=== PATIENT | female | born 1940 | race African-American/Black ===

== ENCOUNTER 2017-01-26 13:51 | Emergency (ER) | payer MEDICARE, MEDICAID ==
[~2017-01-26] VITALS: Ht 160 cm; Wt 60.0 kg
[~2017-01-26 13:51] MED LIST: CYCL10TA7; GLIP10TA10; INSLAN; LISI1TAB13; LOVA20TA2; METF500T4; OMEP20CA10; PENT400T2
[2017-01-26] MEDS ORDERED: SODIUM CHLORIDE 0.9% 1,000 ML IV ONE (15:46)
[2017-01-26] MEDS ORDERED: ONDANSETRON HCL 4MG/2ML VIAL IV STA (15:46)
[2017-01-26 16:31] LABS: PARTIAL THROMBOPLASTIN TIME 25.7 sec (23.4-31.0); PROTHROMBIN TIME 10.8 sec (9.4-11.6)
[2017-01-26 16:32] LABS: BASOPHILS % 1.2 % (0.0-2.0); HEMATOCRIT. 32.1 % (36.0-48.0); HEMOGLOBIN. 10.5 g/dL (12.0-16.0); LYMPHOCYTES % 33.7 % (20.0-50.0); MEAN CORPUSCULAR HEMOGLOBIN 27.6 pg (28.0-32.0); MEAN CORPUSCULAR VOLUME 84.2 fL (81.0-99.0); MEAN PLATELET VOLUME 8.4 fl (7.4-10.4); MONOCYTES % 7.5 % (2.0-8.0); NEUTROPHILS % 55.6 % (40.0-76.0); PLATELET 276 x1000/uL (130-400); RED BLOOD CELL COUNT 3.81 mill/uL (4.2-5.4); RED CELL DISTRIBUTION WIDTH 14.4 % (11.6-14.6)
[2017-01-26 16:38] LABS: CARBON DIOXIDE 27 mEq/L (21-32); CHLORIDE 104 mEq/L (98-107); CREATINE KINASE 233 IU/L (26-192)
[2017-01-26 16:39] LABS: TROPONIN I < 0.02 ng/mL (0.00-0.04)
[2017-01-26 18:29] VITALS: BP 170/94
== END 2017-01-26 20:30 | disposition home or self-care (01) ==
LOC: ER 14:28 → CANBEDREQ 21:21
DX: T60.4X1A Toxic effect of rodenticides, accidental (unintentional), initial encounter (principal); R10.9 Unspecified abdominal pain; R11.2 Nausea with vomiting, unspecified; I10 Essential (primary) hypertension; E11.9 Type 2 diabetes mellitus without complications; Z79.4 Long term (current) use of insulin; Z88.2 Allergy status to sulfonamides; Y92.89 Other specified places as the place of occurrence of the external cause
CPT/HCPCS: 36415; 71010; 74176; 80053; 80307; 80329; 82550; 83690; 83880; 84443; 84484; 85025; 85610; 85730; 93005; 96374; 99285; J2405; J7030

== ENCOUNTER 2017-11-09 23:23 | Inpatient (IN) | payer MEDICARE, MEDICAID ==
[~2017-11-09] VITALS: Ht 160 cm; Wt 64.4 kg
[~2017-11-09 23:23] MED LIST changes: -METF500T4; +METF500T6; +PENT400T11; -PENT400T2
[2017-11-10] MEDS ORDERED: MORPHINE SULFATE 4 MG/ML CPJ (NOT FOR IM USE) IV STA (00:09)
[2017-11-10] MEDS ORDERED: ONDANSETRON HCL 4MG/2ML VIAL IV STA (00:09)
[2017-11-10] MEDS ORDERED: SODIUM CHLORIDE 0.9% 1,000 ML IV ONE (00:09)
[2017-11-10] MEDS ORDERED: FAMOTIDINE 20MG/2ML VIAL IV STA (00:09)
[2017-11-10 01:20] LABS: BASOPHILS % 0.4 % (0.0-2.0); EOSINOPHILS % 0.1 % (0.0-5.0); HEMATOCRIT. 36.3 % (36.0-48.0); HEMOGLOBIN. 12.4 g/dL (12.0-16.0); LYMPHOCYTES % 13.3 % (20.0-50.0); MEAN CORPUSCULAR HEMOGLOBIN 28.3 pg (28.0-32.0); MEAN CORPUSCULAR VOLUME 82.9 fL (81.0-99.0); MEAN PLATELET VOLUME 8.3 fl (7.4-10.4); MONOCYTES % 7.3 % (2.0-8.0); NEUTROPHILS % 78.9 % (40.0-76.0); PLATELET 416 x1000/uL (130-400); RED BLOOD CELL COUNT 4.38 mill/uL (4.2-5.4); RED CELL DISTRIBUTION WIDTH 13.8 % (11.6-14.6)
[2017-11-10 01:27] LABS: PROTHROMBIN TIME 10.7 sec (9.4-11.6)
[2017-11-10 01:28] LABS: CHLORIDE 94 mEq/L (98-107)
[2017-11-10 01:35] LABS: ETHANOL BLOOD < 10 mg/dL
[2017-11-10] MEDS ORDERED: IOHEXOL-300 100 ML BOTTLE ONE (04:12)
[2017-11-10] MEDS ORDERED: SODIUM CHLORIDE 0.9% 1,000 ML IV SCH (05:26)
[2017-11-10 08:00] VITALS: BP 136/54
[2017-11-10 08:20] VITALS: BP 136/54
[2017-11-10] MEDS ORDERED: LORAZEPAM 0.5MG TABLET PO PRN (09:15)
[2017-11-10] MEDS ORDERED: DIPHENHYDRAMINE 50MG/ML VIAL IV PRN (09:15)
[2017-11-10] MEDS ORDERED: ONDANSETRON HCL 4MG/2ML VIAL IV PRN (09:15)
[2017-11-10] MEDS ORDERED: CLONIDINE 0.1MG TABLET PO PRN (09:15)
[2017-11-10] MEDS ORDERED: ACETAMINOPHEN 325MG TABLET PO PRN (09:15)
[2017-11-10] MEDS: LISINOPRIL 5MG TABLET PO SCH ×3 (09:30→21:33)
[2017-11-10] MEDS ORDERED: IPRATROPIUM/ALBUTEROL 0.5-3(2.5)MG/3ML NEB INH PRN (09:30)
[2017-11-10] MEDS ORDERED: KCL 20MEQ/100ML PREMIX 100 ML IV NR (10:00)
[2017-11-10 11:39] LABS: CLARITY URINE CLOUDY (CLEAR); COLOR URINE YELLOW (YELLOW); KETONES URINE NEGATIVE (NEGATIVE); LEUKOCYTE ESTERASE URINE 2+ (NEGATIVE); NITRITE URINE NEGATIVE (NEGATIVE); OCCULT BLOOD URINE TRACE (NEGATIVE); PROTEIN URINE 3+ (NEGATIVE); SPECIFIC GRAVITY URINE 1.028 (1.005-1.030); UROBILINOGEN URINE 0.2 E.U./dL (0.2-1.0)
[2017-11-10 12:00] VITALS: BP 126/37
[2017-11-10] MEDS: INSULIN GLARGINE UD 100 UNITS/ML SYR SUBCUT SCH (12:13)
[2017-11-10] MEDS: BLOOD SUGAR DIAGNOSTIC STRIP TEST SCH ×3 (12:14→21:33)
[2017-11-10] MEDS: INSULIN LISPRO 100 UNITS/ML SUBCUT SCH ×3 (12:17→21:00)
[2017-11-10] MEDS: SODIUM CHLORIDE 0.9% 1,000 ML IV SCH ×2 (12:17→18:54)
[2017-11-10 16:00] VITALS: BP 133/49
[2017-11-10] MEDS ORDERED: POTASSIUM CHLORIDE 20MEQ TABLET SR PO NR (16:00)
[2017-11-10] MEDS: PANTOPRAZOLE SODIUM 40 MG/VIAL IV SCH (16:18)
[2017-11-10] MEDS: DEXTROSE 50% WATER 50ML SYRINGE IV PRN (16:18)
[2017-11-10] MEDS ORDERED: LEVOFLOXACIN 500MG PREMIX 100 ML IV NR (16:30)
[2017-11-10 20:00] VITALS: BP 154/74
[2017-11-11] VITALS: BP 141/77
[2017-11-11 04:00] VITALS: BP 146/62
[2017-11-11] MEDS: BLOOD SUGAR DIAGNOSTIC STRIP TEST SCH ×2 (06:12→11:15)
[2017-11-11] MEDS: DEXTROSE 50% WATER 50ML SYRINGE IV PRN (06:12)
[2017-11-11] MEDS: INSULIN LISPRO 100 UNITS/ML SUBCUT SCH ×2 (06:12→12:40)
[2017-11-11 06:49] LABS: BASOPHILS % 1.1 % (0.0-2.0); EOSINOPHILS % 2.5 % (0.0-5.0); HEMATOCRIT. 32.4 % (36.0-48.0); HEMOGLOBIN. 10.9 g/dL (12.0-16.0); LYMPHOCYTES % 30.2 % (20.0-50.0); MEAN CORPUSCULAR VOLUME 83.6 fL (81.0-99.0); MEAN PLATELET VOLUME 8.4 fl (7.4-10.4); MONOCYTES % 8.6 % (2.0-8.0); NEUTROPHILS % 57.6 % (40.0-76.0); PLATELET 330 x1000/uL (130-400); RED BLOOD CELL COUNT 3.88 mill/uL (4.2-5.4)
[2017-11-11 07:53] VITALS: BP 124/76
[2017-11-11] MEDS: PANTOPRAZOLE SODIUM 40 MG/VIAL IV SCH (08:24)
[2017-11-11] MEDS: LISINOPRIL 5MG TABLET PO SCH (08:24)
[2017-11-11] MEDS: INSULIN GLARGINE UD 100 UNITS/ML SYR SUBCUT SCH (10:00)
[2017-11-11] MEDS: SODIUM CHLORIDE 0.9% 1,000 ML IV SCH (11:00)
[2017-11-11 12:00] VITALS: BP 153/58
[2017-11-11] MEDS ORDERED: LEVOFLOXACIN 250MG PREMIX 50 ML IV SCH (14:00)
[2017-11-11 16:00] VITALS: BP 137/74
[2017-11-11 16:15] VITALS: BP 137/74
== END 2017-11-11 17:35 | disposition home or self-care (01) | DRG 872 ==
LOC: ER 23:23 → 8WST 11-10 05:27 → EDBEDREQ 11-10 05:40 → EDBEDREQSVC 11-10 05:40 → ENRESERV 11-10 07:09
PROVIDERS: ADMIT Internal Medicine; ATTEND Internal Medicine
DX: A41.9 Sepsis, unspecified organism (principal); E87.1 Hypo-osmolality and hyponatremia; N39.0 Urinary tract infection, site not specified; E78.00 Pure hypercholesterolemia, unspecified; E87.6 Hypokalemia; I10 Essential (primary) hypertension; E11.9 Type 2 diabetes mellitus without complications; K21.9 Gastro-esophageal reflux disease without esophagitis; Z72.0 Tobacco use; Z82.49 Family history of ischemic heart disease and other diseases of the circulatory system; Z88.2 Allergy status to sulfonamides; Z79.899 Other long term (current) drug therapy; Z79.4 Long term (current) use of insulin
CPT/HCPCS: 36415; 71045; 74177; 80048; 80053; 81003; 82962; 83605; 83690; 83735; 84484; 85025; 85610; 87086; 93005; 93970; 96361; 96374; 96375; 99285; C9113; G0482; J1815; J1956; J2270; J2405; J3480; J3490; J7030; J7040; Q9967

== ENCOUNTER 2018-05-26 16:29 | Emergency (ER) | payer MEDICARE, MEDICAID ==
[~2018-05-26] VITALS: Ht 160 cm; Wt 56.8 kg
[~2018-05-26 16:29] MED LIST changes: -CYCL10TA7; +CYCL10TA7 PO; -GLIP10TA10; +GLIP10TA10 PO; -INSLAN; +INSLAN SUBCUT; -LISI1TAB13; +LISI1TAB13 PO; -LOVA20TA2; +LOVA20TA2 PO; +METF-414 PO; -METF500T6; -OMEP20CA10; +OMEP20CA10 PO; -PENT400T11; +PENT400T11 PO
[2018-05-26 19:07] LABS: CHLORIDE 94 mEq/L (98-107)
[2018-05-26 19:13] LABS: BASOPHILS % 0.8 % (0.0-2.0); EOSINOPHILS % 1.3 % (0.0-5.0); HEMATOCRIT. 23.9 % (36.0-48.0); HEMOGLOBIN. 7.4 g/dL (12.0-16.0); LYMPHOCYTES % 20.7 % (20.0-50.0); MEAN CORPUSCULAR HEMOGLOBIN 21.6 pg (28.0-32.0); MEAN CORPUSCULAR VOLUME 69.6 fL (81.0-99.0); MEAN PLATELET VOLUME 9.3 fl (7.4-10.4); MONOCYTES % 6.7 % (2.0-8.0); NEUTROPHILS % 70.5 % (40.0-76.0); PLATELET 436 x1000/uL (130-400); RED BLOOD CELL COUNT 3.43 mill/uL (4.2-5.4); RED CELL DISTRIBUTION WIDTH 16.1 % (11.6-14.6)
[2018-05-26 20:00] LABS: PLATELET ESTIMATE INCREASED
[2018-05-26] MEDS ORDERED: KETOROLAC 15MG/ML VIAL IV ONE (23:30)
[2018-05-27 01:03] VITALS: BP 143/51
== END 2018-05-27 04:48 | disposition home or self-care (01) ==
LOC: ER 16:29 → CANBEDREQ 05-27 04:52
DX: R05 Cough (principal); R07.9 Chest pain, unspecified; D72.829 Elevated white blood cell count, unspecified; D64.9 Anemia, unspecified; E87.1 Hypo-osmolality and hyponatremia; E11.65 Type 2 diabetes mellitus with hyperglycemia; D47.3 Essential (hemorrhagic) thrombocythemia; R79.89 Other specified abnormal findings of blood chemistry; E11.9 Type 2 diabetes mellitus without complications; K21.9 Gastro-esophageal reflux disease without esophagitis; I10 Essential (primary) hypertension; F17.200 Nicotine dependence, unspecified, uncomplicated; E78.00 Pure hypercholesterolemia, unspecified; Z79.4 Long term (current) use of insulin; Z88.2 Allergy status to sulfonamides
CPT/HCPCS: 36415; 71045; 80053; 83880; 84484; 85025; 93005; 96374; 99284; J1885

== ENCOUNTER 2018-06-15 14:40 | Inpatient (IN) | payer MEDICARE, MEDICAID ==
[~2018-06-15] VITALS: Ht 167.6 cm; Wt 58.5 kg
[2018-06-15 16:34] LABS: BASOPHILS % 1.4 % (0.0-2.0); EOSINOPHILS % 2.6 % (0.0-5.0); LYMPHOCYTES % 27.9 % (20.0-50.0); MEAN CORPUSCULAR HEMOGLOBIN 21.5 pg (28.0-32.0); MEAN CORPUSCULAR VOLUME 70.6 fL (81.0-99.0); MEAN PLATELET VOLUME 8.6 fl (7.4-10.4); MONOCYTES % 8.3 % (2.0-8.0); NEUTROPHILS % 59.8 % (40.0-76.0); PLATELET 379 x1000/uL (130-400); RED BLOOD CELL COUNT 2.87 mill/uL (4.2-5.4); RED CELL DISTRIBUTION WIDTH 16.5 % (11.6-14.6)
[2018-06-15 16:38] LABS: HEMATOCRIT. 20.3 % (36.0-48.0); HEMOGLOBIN. 6.2 g/dL (12.0-16.0)
[2018-06-15 16:39] LABS: CHLORIDE 104 mEq/L (98-107)
[2018-06-15 17:17] LABS: PARTIAL THROMBOPLASTIN TIME 26.8 sec (23.4-31.0); PROTHROMBIN TIME 10.2 sec (9.1-11.1)
[2018-06-15] MEDS ORDERED: HYDRALAZINE 20MG/ML VIAL IV ONE (18:00)
[2018-06-15] MEDS ORDERED: GUAIFENESIN 200MG/10ML SUGAR FREE UDC PO PRN (19:15)
[2018-06-15] MEDS ORDERED: NITROGLYCERIN 0.4MG TABLET SL SL PRN (19:15)
[2018-06-15] MEDS ORDERED: MAGNESIUM/ALUMINUM HYDROXIDE/SIMETHICONE 30ML UDC PO PRN (19:15)
[2018-06-15] MEDS ORDERED: ONDANSETRON HCL 4MG/2ML INJ IV PRN (19:15)
[2018-06-15] MEDS ORDERED: DOCUSATE SODIUM 100MG CAPSULE PO PRN (19:15)
[2018-06-15 19:28] LABS: TOTAL IRON BINDING CAPACITY 498 ug/dL (250-450)
[2018-06-15] MEDS: CLONIDINE 0.1MG TABLET PO PRN (20:56)
[2018-06-15 22:00] VITALS: BP 186/75
[2018-06-15] MEDS: LORAZEPAM 2MG/ML CPJ IV PRN (22:43)
[2018-06-15] MEDS ORDERED: DEXTROSE 50% WATER 50ML SYRINGE IV PRN (23:30)
[2018-06-16] MEDS: BLOOD SUGAR DIAGNOSTIC STRIP TEST SCH ×5 (00:05→20:43)
[2018-06-16] MEDS: LOSARTAN POTASSIUM 50 MG TABLET PO SCH ×3 (00:10→20:43)
[2018-06-16] MEDS: INSULIN LISPRO 100 UNITS/ML SUBCUT SCH ×5 (00:11→20:43)
[2018-06-16 00:33] LABS: CREATINE KINASE MB FRACTION 3.1 ng/mL (0.5-3.6)
[2018-06-16] MEDS: ACETAMINOPHEN 325MG TABLET PO PRN ×4 (01:07→20:43)
[2018-06-16 04:00] VITALS: BP 125/62
[2018-06-16 08:03] VITALS: BP 180/76
[2018-06-16] MEDS: AMLODIPINE 10MG TABLET PO SCH (08:45)
[2018-06-16 09:45] LABS: BASOPHILS % 0.7 % (0.0-2.0); EOSINOPHILS % 0.3 % (0.0-5.0); HEMATOCRIT. 25.1 % (36.0-48.0); HEMOGLOBIN. 7.7 g/dL (12.0-16.0); MEAN CORPUSCULAR HEMOGLOBIN 22.1 pg (28.0-32.0); MEAN CORPUSCULAR VOLUME 71.9 fL (81.0-99.0); MEAN PLATELET VOLUME 8.4 fl (7.4-10.4); MONOCYTES % 5.1 % (2.0-8.0); NEUTROPHILS % 77.9 % (40.0-76.0); PLATELET 319 x1000/uL (130-400); RED BLOOD CELL COUNT 3.49 mill/uL (4.2-5.4); RED CELL DISTRIBUTION WIDTH 18.7 % (11.6-14.6)
[2018-06-16 10:03] LABS: CHLORIDE 100 mEq/L (98-107)
[2018-06-16 10:22] LABS: CREATINE KINASE 115 IU/L (26-192); LDL CHOLESTEROL 53 mg/dL (5-100)
[2018-06-16 10:24] LABS: HDL CHOLESTEROL 63 mg/dL (40-59)
[2018-06-16] MEDS ORDERED: POTASSIUM CHLORIDE 20MEQ TABLET SR PO NR (10:45)
[2018-06-16] MEDS: PANTOPRAZOLE 40MG DR TABLET PO SCH (11:04)
[2018-06-16 12:00] VITALS: BP 163/67
[2018-06-16 16:00] VITALS: BP 156/66
[2018-06-16 16:07] LABS: TOTAL IRON BINDING CAPACITY 481 ug/dL (250-450)
[2018-06-16 19:56] VITALS: BP 139/43
[2018-06-16] MEDS: LORAZEPAM 2MG/ML CPJ IV PRN (22:23)
[2018-06-16 23:55] VITALS: BP 159/67
[2018-06-17] VITALS (9 sets, daily range): BP systolic 120–152; BP diastolic 40–68
[2018-06-17] MEDS: PANTOPRAZOLE 40MG DR TABLET PO SCH (06:03)
[2018-06-17] MEDS: BLOOD SUGAR DIAGNOSTIC STRIP TEST SCH ×4 (06:15→20:17)
[2018-06-17] MEDS: LOSARTAN POTASSIUM 50 MG TABLET PO SCH ×2 (08:30→20:27)
[2018-06-17] MEDS: AMLODIPINE 10MG TABLET PO SCH (08:30)
[2018-06-17] MEDS: INSULIN LISPRO 100 UNITS/ML SUBCUT SCH ×4 (08:37→20:28)
[2018-06-17] MEDS: ACETAMINOPHEN 325MG TABLET PO PRN (09:32)
[2018-06-17] MEDS ORDERED: SORBITOL 70% SOLN 30ML PO NR ×2 (16:00→20:00)
[2018-06-17] MEDS ORDERED: DIPHENHYDRAMINE 25MG CAPSULE PO PRN (19:00)
[2018-06-17 19:10] LABS: BASOPHILS % 1.2 % (0.0-2.0); EOSINOPHILS % 5.4 % (0.0-5.0); HEMATOCRIT. 23.4 % (36.0-48.0); HEMOGLOBIN. 7.2 g/dL (12.0-16.0); LYMPHOCYTES % 22.5 % (20.0-50.0); MEAN CORPUSCULAR HEMOGLOBIN 22.2 pg (28.0-32.0); MEAN CORPUSCULAR VOLUME 71.8 fL (81.0-99.0); MEAN PLATELET VOLUME 8.5 fl (7.4-10.4); MONOCYTES % 7.8 % (2.0-8.0); NEUTROPHILS % 63.1 % (40.0-76.0); PLATELET 349 x1000/uL (130-400); RED BLOOD CELL COUNT 3.26 mill/uL (4.2-5.4); RED CELL DISTRIBUTION WIDTH 18.6 % (11.6-14.6)
[2018-06-17 19:18] LABS: CHLORIDE 99 mEq/L (98-107)
[2018-06-17] MEDS: PANTOPRAZOLE SODIUM 40 MG/VIAL IV SCH (20:27)
[2018-06-17] MEDS: ZOLPIDEM TARTRATE 5MG TABLET PO PRN (21:53)
[2018-06-18] VITALS (12 sets, daily range): BP systolic 142–175; BP diastolic 50–77
[2018-06-18 03:06] LABS: HEMATOCRIT 26.5 % (36.0-48.0); HEMOGLOBIN 8.1 g/dL (12.0-16.0)
[2018-06-18] MEDS ORDERED: NA PHOS,M-B/NA PHOS,DI-BA ENEMA 118ML PR NR (07:00)
[2018-06-18] MEDS: BLOOD SUGAR DIAGNOSTIC STRIP TEST SCH ×4 (07:36→21:50)
[2018-06-18 09:16] LABS: EOSINOPHILS % 4.6 % (0.0-5.0); HEMATOCRIT. 33.1 % (36.0-48.0); HEMOGLOBIN. 10.4 g/dL (12.0-16.0); LYMPHOCYTES % 19.2 % (20.0-50.0); MEAN CORPUSCULAR HEMOGLOBIN 24.4 pg (28.0-32.0); MEAN CORPUSCULAR VOLUME 77.3 fL (81.0-99.0); MEAN PLATELET VOLUME 8.5 fl (7.4-10.4); MONOCYTES % 8.2 % (2.0-8.0); PLATELET 315 x1000/uL (130-400); RED BLOOD CELL COUNT 4.28 mill/uL (4.2-5.4); RED CELL DISTRIBUTION WIDTH 22.4 % (11.6-14.6)
[2018-06-18] MEDS ORDERED: FENTANYL CITRATE/PF 50MCG/ML 2ML VIAL ONE (09:20)
[2018-06-18 09:21] LABS: PARTIAL THROMBOPLASTIN TIME 28.4 sec (23.4-31.0); PROTHROMBIN TIME 10.4 sec (9.1-11.1)
[2018-06-18] MEDS ORDERED: MIDAZOLAM HCL 5 MG/5 ML VIAL ONE (09:21)
[2018-06-18] MEDS ORDERED: SIMETHICONE 40 MG/0.6 ML 30ML ONE (09:21)
[2018-06-18 09:25] LABS: CHLORIDE 104 mEq/L (98-107)
[2018-06-18] MEDS ORDERED: FENTANYL CITRATE/PF 50MCG/ML 2ML VIAL IV PRN (09:30)
[2018-06-18] MEDS ORDERED: MIDAZOLAM HCL 5 MG/5 ML VIAL IV PRN (09:31)
[2018-06-18] MEDS: AMLODIPINE 10MG TABLET PO SCH (13:29)
[2018-06-18] MEDS: LOSARTAN POTASSIUM 50 MG TABLET PO SCH ×2 (13:29→21:49)
[2018-06-18] MEDS: PANTOPRAZOLE SODIUM 40 MG/VIAL IV SCH ×2 (13:30→21:49)
[2018-06-18] MEDS: INSULIN LISPRO 100 UNITS/ML SUBCUT SCH ×3 (13:31→21:50)
[2018-06-18 13:48] LABS: PLATELET ESTIMATE NORMAL
[2018-06-18] MEDS ORDERED: SODIUM CHLORIDE 0.9% 10ML VIAL ONE (15:39)
[2018-06-18] MEDS: ACETAMINOPHEN 325MG TABLET PO PRN (16:05)
[2018-06-18] MEDS ORDERED: SORBITOL 70% SOLN 30ML PO NR (21:00)
[2018-06-19] VITALS: BP 166/68
[2018-06-19] MEDS ORDERED: SORBITOL 70% SOLN 30ML PO NR (06:00)
[2018-06-19] MEDS: BLOOD SUGAR DIAGNOSTIC STRIP TEST SCH ×4 (06:57→21:00)
[2018-06-19 07:06] LABS: BASOPHILS % 1.3 % (0.0-2.0); EOSINOPHILS % 6.3 % (0.0-5.0); HEMATOCRIT. 31.2 % (36.0-48.0); LYMPHOCYTES % 24.7 % (20.0-50.0); MEAN CORPUSCULAR HEMOGLOBIN 24.3 pg (28.0-32.0); MEAN CORPUSCULAR VOLUME 76.1 fL (81.0-99.0); MEAN PLATELET VOLUME 8.2 fl (7.4-10.4); MONOCYTES % 10.1 % (2.0-8.0); NEUTROPHILS % 57.6 % (40.0-76.0); PLATELET 311 x1000/uL (130-400); RED CELL DISTRIBUTION WIDTH 22.4 % (11.6-14.6)
[2018-06-19 07:29] LABS: CHLORIDE 107 mEq/L (98-107)
[2018-06-19 08:00] VITALS: BP 162/76
[2018-06-19] MEDS ORDERED: NA PHOS,M-B/NA PHOS,DI-BA ENEMA 118ML PR NR (08:00)
[2018-06-19] MEDS: INSULIN LISPRO 100 UNITS/ML SUBCUT SCH ×4 (08:07→21:00)
[2018-06-19] MEDS: AMLODIPINE 10MG TABLET PO SCH (09:34)
[2018-06-19] MEDS: LOSARTAN POTASSIUM 50 MG TABLET PO SCH ×2 (09:34→21:00)
[2018-06-19] MEDS: FAMOTIDINE 20MG TABLET PO SCH (09:35)
[2018-06-19 12:00] VITALS: BP 151/57
[2018-06-19] MEDS: ACETAMINOPHEN 325MG TABLET PO PRN (15:38)
[2018-06-19] MEDS: CLONIDINE 0.1MG TABLET PO PRN (15:38)
[2018-06-19] MEDS ORDERED: SODIUM CHLORIDE 0.9% 10ML VIAL ONE (15:40)
[2018-06-19 16:00] VITALS: BP 147/68
[2018-06-19] MEDS ORDERED: FENTANYL CITRATE/PF 50MCG/ML 2ML VIAL ONE (17:15)
[2018-06-19] MEDS ORDERED: MIDAZOLAM HCL 5 MG/5 ML VIAL ONE (17:15)
[2018-06-19] MEDS ORDERED: MIDAZOLAM HCL 5 MG/5 ML VIAL IV PRN (17:19)
[2018-06-19] MEDS ORDERED: FENTANYL CITRATE/PF 50MCG/ML 2ML VIAL IV PRN (17:20)
[2018-06-19 20:00] VITALS: BP 103/61
[2018-06-19] MEDS ORDERED: FUROSEMIDE 40MG/4ML VIAL IVP NR (20:00)
[2018-06-19] MEDS: ZOLPIDEM TARTRATE 5MG TABLET PO PRN (23:34)
[2018-06-20] VITALS: BP 115/54
[2018-06-20] MEDS: ACETAMINOPHEN 325MG TABLET PO PRN ×2 (02:56→08:51)
[2018-06-20 04:00] VITALS: BP 136/59
[2018-06-20] MEDS: BLOOD SUGAR DIAGNOSTIC STRIP TEST SCH ×2 (06:11→12:41)
[2018-06-20 08:00] VITALS: BP 166/74
[2018-06-20] MEDS: LOSARTAN POTASSIUM 50 MG TABLET PO SCH (08:51)
[2018-06-20] MEDS: AMLODIPINE 10MG TABLET PO SCH (08:51)
[2018-06-20] MEDS: FAMOTIDINE 20MG TABLET PO SCH (08:52)
[2018-06-20] MEDS: INSULIN LISPRO 100 UNITS/ML SUBCUT SCH (09:09)
[2018-06-20 10:47] VITALS: BP 155/78
[2018-06-20 12:00] VITALS: BP 165/78
== END 2018-06-20 12:38 | disposition home health service (06) | DRG 378 ==
LOC: ER 14:40 → 7WST 17:42 → SUPCPDRO 19:02 → ENRESERV 20:40
PROVIDERS: ADMIT Hospitalist; ATTEND Hospitalist
PROC: 30233N1 Transfusion of Nonautologous Red Blood Cells into Peripheral Vein, Percutaneous Approach (ICD-10-PCS; 2018-06-15)
PROC: 0DJ08ZZ Inspection of Upper Intestinal Tract, Via Natural or Artificial Opening Endoscopic (ICD-10-PCS; principal; 2018-06-18)
PROC: 0DJD8ZZ Inspection of Lower Intestinal Tract, Via Natural or Artificial Opening Endoscopic (ICD-10-PCS; 2018-06-18)
PROC: 0DJD8ZZ Inspection of Lower Intestinal Tract, Via Natural or Artificial Opening Endoscopic (ICD-10-PCS; 2018-06-19)
DX: K29.61 Other gastritis with bleeding (principal); E44.0 Moderate protein-calorie malnutrition; E11.43 Type 2 diabetes mellitus with diabetic autonomic (poly)neuropathy; D50.9 Iron deficiency anemia, unspecified; K21.9 Gastro-esophageal reflux disease without esophagitis; I10 Essential (primary) hypertension; E78.00 Pure hypercholesterolemia, unspecified; E78.5 Hyperlipidemia, unspecified; K31.84 Gastroparesis; K44.9 Diaphragmatic hernia without obstruction or gangrene; Z88.2 Allergy status to sulfonamides; Z79.4 Long term (current) use of insulin; Z79.84 Long term (current) use of oral hypoglycemic drugs; Z79.899 Other long term (current) drug therapy; Z68.20 Body mass index [BMI] 20.0-20.9, adult
CPT/HCPCS: 36415; 36430; 71045; 80061; 82270; 82550; 82553; 82962; 83540; 83550; 83880; 84484; 85014; 85018; 86850; 86900; 86920; 93005; 93970; 96374; 99285; C1893; C9113; J0360; J1815; J1940; J2060; J2250; J3010; J7050; P9016; Q0163

== ENCOUNTER 2018-10-06 08:45 | Inpatient (IN) | payer MEDICARE, OTHER ==
[~2018-10-06] VITALS: Ht 160 cm; Wt 77.1 kg
[~2018-10-06 08:45] MED LIST changes: -OMEP20CA10 PO; +OMEP20CA5 PO; -PENT400T11 PO; +PENT400T16 PO
[2018-10-06] MEDS ORDERED: ONDANSETRON HCL 4MG/2ML INJ IV STA (09:14)
[2018-10-06] MEDS ORDERED: SODIUM CHLORIDE 0.9% 1,000 ML IV ONE (09:14)
[2018-10-06 09:42] LABS: BASOPHILS % 0.8 % (0.0-2.0); EOSINOPHILS % 0.8 % (0.0-5.0); HEMATOCRIT. 35.8 % (36.0-48.0); LYMPHOCYTES % 14.9 % (20.0-50.0); MEAN CORPUSCULAR HEMOGLOBIN 29.3 pg (28.0-32.0); MEAN CORPUSCULAR VOLUME 87.1 fL (81.0-99.0); MEAN PLATELET VOLUME 7.7 fl (7.4-10.4); MONOCYTES % 6.4 % (2.0-8.0); NEUTROPHILS % 77.1 % (40.0-76.0); PLATELET 328 x1000/uL (130-400); RED BLOOD CELL COUNT 4.11 mill/uL (4.2-5.4); RED CELL DISTRIBUTION WIDTH 13.9 % (11.6-14.6)
[2018-10-06 09:43] LABS: CHLORIDE 98 mEq/L (98-107)
[2018-10-06 09:46] LABS: INR 0.9; PROTHROMBIN TIME 9.7 sec (9.6-11.0)
[2018-10-06 11:28] LABS: CLARITY URINE CLOUDY (CLEAR); COLOR URINE YELLOW (YELLOW); KETONES URINE NEGATIVE (NEGATIVE); LEUKOCYTE ESTERASE URINE 2+ (NEGATIVE); NITRITE URINE NEGATIVE (NEGATIVE); OCCULT BLOOD URINE 1+ (NEGATIVE); PROTEIN URINE 2+ (NEGATIVE); SPECIFIC GRAVITY URINE 1.012 (1.005-1.030); UROBILINOGEN URINE 0.2 E.U./dL (0.2-1.0)
[2018-10-06] MEDS ORDERED: CEFTRIAXONE 1 G PREMIX 50 ML IV NR (12:30)
[2018-10-06] MEDS ORDERED: MAGNESIUM/ALUMINUM HYDROXIDE/SIMETHICONE 30ML UDC PO PRN (13:00)
[2018-10-06] MEDS ORDERED: ENOXAPARIN 40MG/0.4ML SYR SUBCUT SCH (13:00)
[2018-10-06] MEDS ORDERED: NA PHOS,M-B/NA PHOS,DI-BA ENEMA 118ML PR PRN (13:00)
[2018-10-06] MEDS ORDERED: DIPHENHYDRAMINE 50MG/ML VIAL IV PRN (13:00)
[2018-10-06] MEDS: LORAZEPAM 2MG/ML CPJ IV PRN (14:17)
[2018-10-06] MEDS: ONDANSETRON HCL 4MG/2ML INJ IV PRN (14:18)
[2018-10-06] MEDS: CLONIDINE 0.1MG TABLET PO PRN ×2 (14:19→22:58)
[2018-10-06] MEDS: LISINOPRIL 20MG TABLET PO SCH (16:41)
[2018-10-06] MEDS ORDERED: LISINOPRIL 20MG TABLET PO NR (16:45)
[2018-10-06] MEDS ORDERED: HYDRALAZINE HCL 50MG TABLET PO NR (17:45)
[2018-10-06] MEDS ORDERED: DEXTROSE 50% WATER 50ML SYRINGE IV PRN ×2 (19:15)
[2018-10-06 20:00] VITALS: BP 183/76
[2018-10-06] MEDS ORDERED: LEVOFLOXACIN 500MG PREMIX 100 ML IV SCH (20:00)
[2018-10-06] MEDS: ENOXAPARIN 30MG/0.3ML SYR SUBCUT SCH (22:58)
[2018-10-06] MEDS: HYDROCHLOROTHIAZIDE 12.5MG CAPSULE PO SCH (22:58)
[2018-10-06] MEDS: BLOOD SUGAR DIAGNOSTIC STRIP TEST SCH (23:03)
[2018-10-06] MEDS: SODIUM CHLORIDE 0.45% 1,000 ML IV SCH (23:03)
[2018-10-06] MEDS: INSULIN LISPRO 100 UNITS/ML SUBCUT SCH (23:26)
[2018-10-07] VITALS: BP 176/71
[2018-10-07] MEDS ORDERED: IPRATROPIUM/ALBUTEROL 0.5-3(2.5)MG/3ML NEB HHN PRN (00:30)
[2018-10-07] MEDS ORDERED: GUAIFENESIN/CODEINE 100-10MG/5ML UDC PO PRN (00:30)
[2018-10-07 04:00] VITALS: BP 124/40
[2018-10-07 06:07] LABS: BASOPHILS % 0.5 % (0.0-2.0); EOSINOPHILS % 1.6 % (0.0-5.0); HEMATOCRIT. 28.3 % (36.0-48.0); HEMOGLOBIN. 9.6 g/dL (12.0-16.0); LYMPHOCYTES % 22.8 % (20.0-50.0); MEAN CORPUSCULAR HEMOGLOBIN 29.4 pg (28.0-32.0); MEAN CORPUSCULAR VOLUME 86.2 fL (81.0-99.0); MEAN PLATELET VOLUME 7.7 fl (7.4-10.4); MONOCYTES % 9.3 % (2.0-8.0); NEUTROPHILS % 65.8 % (40.0-76.0); PLATELET 297 x1000/uL (130-400); RED BLOOD CELL COUNT 3.28 mill/uL (4.2-5.4); RED CELL DISTRIBUTION WIDTH 13.8 % (11.6-14.6)
[2018-10-07] MEDS: SODIUM CHLORIDE 0.45% 1,000 ML IV SCH ×2 (06:57→20:20)
[2018-10-07] MEDS: BLOOD SUGAR DIAGNOSTIC STRIP TEST SCH ×4 (06:58→20:07)
[2018-10-07 07:01] LABS: CHLORIDE 99 mEq/L (98-107)
[2018-10-07 08:00] VITALS: BP 128/83
[2018-10-07] MEDS ORDERED: LEVOFLOXACIN 500MG PREMIX 100 ML IV SCH (08:00)
[2018-10-07] MEDS: INSULIN LISPRO 100 UNITS/ML SUBCUT SCH ×4 (08:28→20:21)
[2018-10-07] MEDS: HYDROCHLOROTHIAZIDE 12.5MG CAPSULE PO SCH (09:30)
[2018-10-07] MEDS: ONDANSETRON HCL 4MG/2ML INJ IV PRN (11:57)
[2018-10-07 12:00] VITALS: BP 149/80
[2018-10-07 16:00] VITALS: BP 172/76
[2018-10-07] MEDS: CLONIDINE 0.1MG TABLET PO PRN (16:46)
[2018-10-07] MEDS: ACETAMINOPHEN 325MG TABLET PO PRN (16:49)
[2018-10-07] MEDS: DOCUSATE SODIUM 100MG CAPSULE PO PRN (18:17)
[2018-10-07 20:00] VITALS: BP 165/71
[2018-10-07] MEDS: LEVOFLOXACIN 250MG PREMIX 50 ML IV SCH (20:19)
[2018-10-07] MEDS: ENOXAPARIN 30MG/0.3ML SYR SUBCUT SCH (20:20)
[2018-10-07 22:21] LABS: CREATINE KINASE 244 IU/L (26-192)
[2018-10-07] MEDS: LORAZEPAM 2MG/ML CPJ IV PRN (23:53)
[2018-10-08] VITALS: BP 145/69
[2018-10-08 04:00] VITALS: BP 141/66
[2018-10-08] MEDS: BLOOD SUGAR DIAGNOSTIC STRIP TEST SCH ×4 (06:08→21:00)
[2018-10-08 06:40] LABS: BASOPHILS % 0.8 % (0.0-2.0); EOSINOPHILS % 2.5 % (0.0-5.0); HEMATOCRIT. 27.7 % (36.0-48.0); HEMOGLOBIN. 9.4 g/dL (12.0-16.0); LYMPHOCYTES % 30.7 % (20.0-50.0); MEAN CORPUSCULAR HEMOGLOBIN 29.1 pg (28.0-32.0); MEAN CORPUSCULAR VOLUME 85.7 fL (81.0-99.0); MEAN PLATELET VOLUME 7.6 fl (7.4-10.4); MONOCYTES % 6.9 % (2.0-8.0); NEUTROPHILS % 59.1 % (40.0-76.0); PLATELET 266 x1000/uL (130-400); RED BLOOD CELL COUNT 3.24 mill/uL (4.2-5.4); RED CELL DISTRIBUTION WIDTH 13.4 % (11.6-14.6)
[2018-10-08 07:03] LABS: CHLORIDE 97 mEq/L (98-107)
[2018-10-08 08:00] VITALS: BP 189/80
[2018-10-08] MEDS: CLONIDINE 0.1MG TABLET PO PRN ×2 (08:27→20:36)
[2018-10-08] MEDS: ONDANSETRON HCL 4MG/2ML INJ IV PRN (08:28)
[2018-10-08] MEDS: ACETAMINOPHEN 325MG TABLET PO PRN (08:28)
[2018-10-08] MEDS: INSULIN LISPRO 100 UNITS/ML SUBCUT SCH ×4 (08:34→20:53)
[2018-10-08] MEDS: HYDROCHLOROTHIAZIDE 12.5MG CAPSULE PO SCH (09:11)
[2018-10-08] MEDS: LISINOPRIL 20MG TABLET PO SCH (09:12)
[2018-10-08] MEDS: POTASSIUM CHLORIDE 20MEQ TABLET SR PO SCH (11:49)
[2018-10-08 12:00] VITALS: BP 144/60
[2018-10-08] MEDS ORDERED: TRAMADOL 50MG TABLET PO PRN (12:30)
[2018-10-08] MEDS: SODIUM CHLORIDE 0.45% 1,000 ML IV SCH (15:17)
[2018-10-08 16:00] VITALS: BP 148/58
[2018-10-08] MEDS: DOCUSATE SODIUM 100MG CAPSULE PO PRN (17:34)
[2018-10-08 20:00] VITALS: BP 187/71
[2018-10-08] MEDS: ENOXAPARIN 30MG/0.3ML SYR SUBCUT SCH (20:35)
[2018-10-08] MEDS: LEVOFLOXACIN 250MG PREMIX 50 ML IV SCH (20:36)
[2018-10-09] VITALS: BP 154/64
[2018-10-09 04:00] VITALS: BP 178/69
[2018-10-09] MEDS: CLONIDINE 0.1MG TABLET PO PRN (04:51)
[2018-10-09] MEDS: INSULIN LISPRO 100 UNITS/ML SUBCUT SCH (05:45)
[2018-10-09] MEDS: BLOOD SUGAR DIAGNOSTIC STRIP TEST SCH (05:45)
[2018-10-09 06:15] LABS: BASOPHILS % 1.3 % (0.0-2.0); EOSINOPHILS % 3.1 % (0.0-5.0); HEMATOCRIT. 29.2 % (36.0-48.0); LYMPHOCYTES % 36.2 % (20.0-50.0); MEAN CORPUSCULAR HEMOGLOBIN 29.4 pg (28.0-32.0); MEAN CORPUSCULAR VOLUME 85.7 fL (81.0-99.0); MEAN PLATELET VOLUME 7.9 fl (7.4-10.4); MONOCYTES % 7.5 % (2.0-8.0); NEUTROPHILS % 51.9 % (40.0-76.0); PLATELET 293 x1000/uL (130-400); RED CELL DISTRIBUTION WIDTH 13.2 % (11.6-14.6)
[2018-10-09 07:21] LABS: CHLORIDE 99 mEq/L (98-107)
[2018-10-09 08:00] VITALS: BP 126/59
[2018-10-09] MEDS: HYDROCHLOROTHIAZIDE 12.5MG CAPSULE PO SCH (09:51)
[2018-10-09] MEDS: SODIUM CHLORIDE 0.45% 1,000 ML IV SCH (09:51)
[2018-10-09] MEDS: POTASSIUM CHLORIDE 20MEQ TABLET SR PO SCH (09:51)
[2018-10-09] MEDS: LISINOPRIL 20MG TABLET PO SCH (09:52)
[2018-10-09 12:00] VITALS: BP 130/64
[2018-10-09 13:07] VITALS: BP 125/59
== END 2018-10-09 13:55 | disposition home health service (06) | DRG 918 ==
LOC: ER 08:45 → 7WST 12:30 → EDBEDREQTM 12:35 → EDBEDREQ 12:35 → ENRESERV 15:32
PROVIDERS: ADMIT Hospitalist; ATTEND Hospitalist
DX: T43.291A Poisoning by other antidepressants, accidental (unintentional), initial encounter (principal); N39.0 Urinary tract infection, site not specified; E11.9 Type 2 diabetes mellitus without complications; B95.4 Other streptococcus as the cause of diseases classified elsewhere; I10 Essential (primary) hypertension; E78.5 Hyperlipidemia, unspecified; K21.9 Gastro-esophageal reflux disease without esophagitis; Y92.89 Other specified places as the place of occurrence of the external cause; Z88.2 Allergy status to sulfonamides; Z88.8 Allergy status to other drugs, medicaments and biological substances; Z79.4 Long term (current) use of insulin; Z79.899 Other long term (current) drug therapy; Z79.84 Long term (current) use of oral hypoglycemic drugs
CPT/HCPCS: 36415; 71045; 80307; 80329; 82550; 82962; 83605; 83735; 83880; 84484; 87077; 93005; 93970; 94640; 96374; 96375; 97162; 99285; A6261; J0696; J1200; J1650; J1815; J1956; J2060; J2405; J7030; J7620; A4315

== ENCOUNTER 2019-05-06 22:41 | Inpatient (IN) | payer MEDICARE, MEDICAID ==
[~2019-05-06] VITALS: Ht 162.6 cm; Wt 63.8 kg
[2019-05-06] MEDS ORDERED: CLONIDINE 0.2MG TABLET PO ONE (23:45)
[2019-05-06] MEDS ORDERED: SODIUM CHLORIDE 0.9% 1,000 ML IV ONE (23:45)
[2019-05-07 00:30] LABS: HEMATOCRIT. 42.5 % (36.0-48.0); HEMOGLOBIN. 13.7 g/dL (12.0-16.0); MEAN CORPUSCULAR HEMOGLOBIN 27.3 pg (28.0-32.0); MEAN CORPUSCULAR VOLUME 84.6 fL (81.0-99.0); MEAN PLATELET VOLUME 8.5 fl (7.4-10.4); PLATELET 374 x1000/uL (130-400); RED BLOOD CELL COUNT 5.03 mill/uL (4.2-5.4); RED CELL DISTRIBUTION WIDTH 19.5 % (11.6-14.6)
[2019-05-07] MEDS ORDERED: INSULIN REGULAR (HUMULIN R) 300UNITS/3ML IV ONE (03:00)
[2019-05-07 05:07] LABS: PLATELET ESTIMATE NORMAL
[2019-05-07] MEDS ORDERED: SODIUM CHLORIDE 0.9% 1,000 ML IV ONE (09:00)
[2019-05-07] MEDS ORDERED: ACETAMINOPHEN 325MG TABLET PO PRN (10:30)
[2019-05-07] MEDS ORDERED: ONDANSETRON HCL 4MG/2ML INJ IV PRN (10:30)
[2019-05-07] MEDS ORDERED: DEXTROSE 50% WATER 50ML SYRINGE IV PRN (10:30)
[2019-05-07] MEDS ORDERED: LEVOFLOXACIN 500MG PREMIX 100 ML IV SCH (10:30)
[2019-05-07] MEDS ORDERED: METRONIDAZOLE 500 MG PREMIX 100 ML IV NR (11:00)
[2019-05-07] MEDS ORDERED: LEVOFLOXACIN 500MG PREMIX 100 ML IV NR (11:00)
[2019-05-07 12:52] LABS: CLARITY URINE CLEAR (CLEAR); COLOR URINE YELLOW (YELLOW); KETONES URINE TRACE (NEGATIVE); LEUKOCYTE ESTERASE URINE NEGATIVE (NEGATIVE); NITRITE URINE NEGATIVE (NEGATIVE); OCCULT BLOOD URINE NEGATIVE (NEGATIVE); PROTEIN URINE 3+ (NEGATIVE); SPECIFIC GRAVITY URINE 1.013 (1.005-1.030); UROBILINOGEN URINE 0.2 E.U./dL (0.2-1.0)
[2019-05-07] MEDS: BLOOD SUGAR DIAGNOSTIC STRIP TEST SCH ×3 (13:00→21:00)
[2019-05-07 13:05] VITALS: BP 148/71
[2019-05-07] MEDS ORDERED: DIATR MEGLU/DIATRIZOATE SOLN 30ML PO NR (13:45)
[2019-05-07] MEDS: SODIUM CHLORIDE 0.9% 1,000 ML IV SCH ×2 (14:45→23:59)
[2019-05-07] MEDS: INSULIN LISPRO 100 UNITS/ML SUBCUT SCH ×3 (15:03→22:15)
[2019-05-07 16:00] VITALS: BP 123/57
[2019-05-07] MEDS: METRONIDAZOLE 500 MG PREMIX 100 ML IV SCH (17:29)
[2019-05-07 18:00] VITALS: BP 121/75
[2019-05-07 20:00] VITALS: BP 119/58
[2019-05-07] MEDS ORDERED: FAMOTIDINE 20MG/2ML VIAL IV SCH (21:00)
[2019-05-07 22:00] VITALS: BP 99/49
[2019-05-07] MEDS ORDERED: INSULIN GLARGINE UD 100 UNITS/ML SYR SUBCUT SCH (22:00)
[2019-05-07] MEDS ORDERED: INSULIN GLARGINE UD 100 UNITS/ML SYR SUBCUT NR (23:45)
[2019-05-08] VITALS (12 sets, daily range): BP systolic 97–178; BP diastolic 47–93
[2019-05-08] MEDS: METRONIDAZOLE 500 MG PREMIX 100 ML IV SCH ×3 (00:02→17:43)
[2019-05-08] MEDS: BLOOD SUGAR DIAGNOSTIC STRIP TEST SCH ×4 (06:24→20:09)
[2019-05-08] MEDS: INSULIN LISPRO 100 UNITS/ML SUBCUT SCH ×4 (06:24→20:19)
[2019-05-08 08:06] LABS: BASOPHILS % 0.3 % (0.0-2.0); HEMATOCRIT. 26.2 % (36.0-48.0); HEMOGLOBIN. 8.8 g/dL (12.0-16.0); MEAN CORPUSCULAR HEMOGLOBIN 27.8 pg (28.0-32.0); MEAN CORPUSCULAR VOLUME 82.3 fL (81.0-99.0); MEAN PLATELET VOLUME 8.4 fl (7.4-10.4); MONOCYTES % 7.3 % (2.0-8.0); NEUTROPHILS % 69.4 % (40.0-76.0); PLATELET 271 x1000/uL (130-400); RED BLOOD CELL COUNT 3.18 mill/uL (4.2-5.4); RED CELL DISTRIBUTION WIDTH 19.4 % (11.6-14.6)
[2019-05-08] MEDS ORDERED: POTASSIUM CHLORIDE 20MEQ TABLET SR PO NR (11:00)
[2019-05-08] MEDS ORDERED: LEVOFLOXACIN 250MG PREMIX 50 ML IV SCH (11:00)
[2019-05-08] MEDS ORDERED: SORBITOL 70% SOLN 30ML PO NR ×3 (11:30→20:00)
[2019-05-08] MEDS: METOCLOPRAMIDE HCL 10MG/2ML VIAL IV SCH ×3 (11:36→23:08)
[2019-05-08] MEDS: SODIUM CHLORIDE 0.9% 1,000 ML IV SCH (11:37)
[2019-05-08] MEDS: INSULIN GLARGINE UD 100 UNITS/ML SYR SUBCUT SCH ×2 (11:50→21:31)
[2019-05-08 17:59] LABS: HEMATOCRIT 32.1 % (36.0-48.0); HEMOGLOBIN 10.5 g/dL (12.0-16.0)
[2019-05-08] MEDS: CLONIDINE 0.1MG TABLET PO PRN (18:47)
[2019-05-08] MEDS: PANTOPRAZOLE SODIUM 40 MG/VIAL IV SCH (20:08)
[2019-05-09] VITALS (19 sets, daily range): BP systolic 103–211; BP diastolic 19–98
[2019-05-09] MEDS: METRONIDAZOLE 500 MG PREMIX 100 ML IV SCH ×3 (00:24→16:33)
[2019-05-09] MEDS: SODIUM CHLORIDE 0.9% 1,000 ML IV SCH (01:39)
[2019-05-09] MEDS: METOCLOPRAMIDE HCL 10MG/2ML VIAL IV SCH ×4 (05:03→23:57)
[2019-05-09] MEDS: INSULIN LISPRO 100 UNITS/ML SUBCUT SCH ×4 (06:18→20:46)
[2019-05-09] MEDS: BLOOD SUGAR DIAGNOSTIC STRIP TEST SCH ×4 (06:18→20:04)
[2019-05-09 07:07] LABS: INR 1.1; PARTIAL THROMBOPLASTIN TIME 26.7 sec (23.4-31.0)
[2019-05-09 07:12] LABS: BASOPHILS % 0.7 % (0.0-2.0); EOSINOPHILS % 0.6 % (0.0-5.0); HEMATOCRIT. 24.2 % (36.0-48.0); HEMOGLOBIN. 8.1 g/dL (12.0-16.0); LYMPHOCYTES % 25.4 % (20.0-50.0); MEAN CORPUSCULAR HEMOGLOBIN 27.6 pg (28.0-32.0); MEAN PLATELET VOLUME 8.1 fl (7.4-10.4); MONOCYTES % 10.9 % (2.0-8.0); NEUTROPHILS % 62.4 % (40.0-76.0); PLATELET 227 x1000/uL (130-400); RED BLOOD CELL COUNT 2.92 mill/uL (4.2-5.4); RED CELL DISTRIBUTION WIDTH 19.1 % (11.6-14.6)
[2019-05-09] MEDS ORDERED: POTASSIUM CHLORIDE 20MEQ TABLET SR PO NR ×2 (08:00→10:00)
[2019-05-09] MEDS: PANTOPRAZOLE SODIUM 40 MG/VIAL IV SCH ×2 (08:12→20:45)
[2019-05-09] MEDS: CLONIDINE 0.1MG TABLET PO PRN ×2 (08:28→13:53)
[2019-05-09] MEDS: INSULIN GLARGINE UD 100 UNITS/ML SYR SUBCUT SCH (10:00)
[2019-05-09] MEDS: SODIUM CHLORIDE 0.45% 1,000 ML IV SCH (12:54)
[2019-05-09] MEDS: LEVOFLOXACIN 250MG PREMIX 50 ML IV SCH (12:55)
[2019-05-09] MEDS: PENTOXIFYLLINE 400MG TABLET PO SCH (16:33)
[2019-05-09] MEDS: LISINOPRIL 20MG TABLET PO SCH (16:55)
[2019-05-09] MEDS: ATORVASTATIN CALCIUM 20MG TABLET PO SCH (20:53)
[2019-05-10] VITALS (26 sets, daily range): BP systolic 118–202; BP diastolic 43–95
[2019-05-10] MEDS: METRONIDAZOLE 500 MG PREMIX 100 ML IV SCH ×3 (00:02→17:24)
[2019-05-10] MEDS: SODIUM CHLORIDE 0.45% 1,000 ML IV SCH ×2 (00:02→15:43)
[2019-05-10] MEDS: METOCLOPRAMIDE HCL 10MG/2ML VIAL IV SCH ×3 (05:07→18:30)
[2019-05-10] MEDS: INSULIN LISPRO 100 UNITS/ML SUBCUT SCH ×4 (06:17→21:31)
[2019-05-10] MEDS: BLOOD SUGAR DIAGNOSTIC STRIP TEST SCH ×4 (06:17→21:12)
[2019-05-10 07:27] LABS: BASOPHILS % 0.7 % (0.0-2.0); HEMATOCRIT. 27.2 % (36.0-48.0); HEMOGLOBIN. 9.1 g/dL (12.0-16.0); LYMPHOCYTES % 27.2 % (20.0-50.0); MEAN CORPUSCULAR VOLUME 83.5 fL (81.0-99.0); MEAN PLATELET VOLUME 7.9 fl (7.4-10.4); MONOCYTES % 9.1 % (2.0-8.0); PLATELET 225 x1000/uL (130-400); RED BLOOD CELL COUNT 3.25 mill/uL (4.2-5.4); RED CELL DISTRIBUTION WIDTH 18.8 % (11.6-14.6)
[2019-05-10 07:35] LABS: CHLORIDE 113 mEq/L (98-107)
[2019-05-10] MEDS: PENTOXIFYLLINE 400MG TABLET PO SCH (08:18)
[2019-05-10] MEDS: LISINOPRIL 20MG TABLET PO SCH (08:18)
[2019-05-10] MEDS: CYCLOBENZAPRINE 10MG TABLET PO SCH (08:19)
[2019-05-10] MEDS ORDERED: NA PHOS,M-B/NA PHOS,DI-BA ENEMA 118ML PR SCH (10:00)
[2019-05-10] MEDS ORDERED: LEVOFLOXACIN 250MG PREMIX 50 ML IV SCH (11:00)
[2019-05-10] MEDS: LEVOFLOXACIN 250MG PREMIX 50 ML IV SCH (11:25)
[2019-05-10] MEDS ORDERED: FENTANYL CITRATE/PF 50MCG/ML 2ML VIAL ONE (12:33)
[2019-05-10] MEDS ORDERED: MIDAZOLAM HCL 5 MG/5 ML VIAL ONE ×2 (12:33→12:34)
[2019-05-10] MEDS ORDERED: SIMETHICONE 40 MG/0.6 ML 30ML ONE (12:34)
[2019-05-10] MEDS ORDERED: MIDAZOLAM HCL 2 MG/2 ML VIAL IV PRN (12:57)
[2019-05-10] MEDS ORDERED: HYDRALAZINE 20MG/ML VIAL IV ONE (13:30)
[2019-05-10] MEDS ORDERED: HYDRALAZINE 20MG/ML VIAL ONE (13:32)
[2019-05-10] MEDS: CLONIDINE 0.1MG TABLET PO PRN (15:42)
[2019-05-10] MEDS ORDERED: HYDRALAZINE 20MG/ML VIAL IV NR (16:00)
[2019-05-10] MEDS ORDERED: HYDRALAZINE 20MG/ML VIAL IV PRN (18:00)
[2019-05-10] MEDS ORDERED: LABETALOL 5MG/ML SYR 20 MG/4 ML SYRINGE IV NR (18:30)
[2019-05-10] MEDS: ATORVASTATIN CALCIUM 20MG TABLET PO SCH (21:12)
[2019-05-11] VITALS (9 sets, daily range): BP systolic 94–160; BP diastolic 44–69
[2019-05-11] MEDS: METOCLOPRAMIDE HCL 10MG/2ML VIAL IV SCH ×3 (00:18→12:11)
[2019-05-11] MEDS: METRONIDAZOLE 500 MG PREMIX 100 ML IV SCH ×2 (00:30→08:38)
[2019-05-11] MEDS: BLOOD SUGAR DIAGNOSTIC STRIP TEST SCH ×2 (05:31→12:11)
[2019-05-11] MEDS: SODIUM CHLORIDE 0.45% 1,000 ML IV SCH (05:32)
[2019-05-11] MEDS: INSULIN LISPRO 100 UNITS/ML SUBCUT SCH (08:19)
[2019-05-11] MEDS: LISINOPRIL 20MG TABLET PO SCH (08:26)
[2019-05-11] MEDS: CYCLOBENZAPRINE 10MG TABLET PO SCH (08:26)
[2019-05-11] MEDS: PENTOXIFYLLINE 400MG TABLET PO SCH (08:38)
[2019-05-11] MEDS ORDERED: INSULIN GLARGINE UD 100 UNITS/ML SYR SUBCUT NR (10:00)
[2019-05-11] MEDS: LEVOFLOXACIN 250MG PREMIX 50 ML IV SCH (11:48)
[2019-05-11] MEDS ORDERED: METRONIDAZOLE 500MG TABLET PO SCH (17:00)
[2019-05-12] MEDS ORDERED: LEVOFLOXACIN 250MG TABLET PO SCH (11:00)
== END 2019-05-11 12:46 | disposition home or self-care (01) | DRG 871 ==
LOC: ER 23:12 → EDBEDREQ 05-07 03:01 → EDBEDREQTM 05-07 03:01 → 3WST 05-07 09:04 → EDBEDREQSVC 05-07 09:19 → EDBEDREQTM 05-07 09:19 → EDBEDREQ 05-07 09:19 → ENRESERV 05-07 11:41
PROVIDERS: ADMIT Internal Medicine; ATTEND Internal Medicine
PROC: 0DB38ZX Excision of Lower Esophagus, Via Natural or Artificial Opening Endoscopic, Diagnostic (ICD-10-PCS; principal; 2019-05-10)
PROC: 0DB78ZX Excision of Stomach, Pylorus, Via Natural or Artificial Opening Endoscopic, Diagnostic (ICD-10-PCS; 2019-05-10)
PROC: 0DBN8ZX Excision of Sigmoid Colon, Via Natural or Artificial Opening Endoscopic, Diagnostic (ICD-10-PCS; 2019-05-10)
DX: A41.9 Sepsis, unspecified organism (principal); N17.0 Acute kidney failure with tubular necrosis; E11.43 Type 2 diabetes mellitus with diabetic autonomic (poly)neuropathy; Z53.09 Procedure and treatment not carried out because of other contraindication; E11.65 Type 2 diabetes mellitus with hyperglycemia; K31.84 Gastroparesis; N81.4 Uterovaginal prolapse, unspecified; I10 Essential (primary) hypertension; K21.9 Gastro-esophageal reflux disease without esophagitis; E78.5 Hyperlipidemia, unspecified; K29.60 Other gastritis without bleeding; K44.9 Diaphragmatic hernia without obstruction or gangrene; K57.30 Diverticulosis of large intestine without perforation or abscess without bleeding; D12.7 Benign neoplasm of rectosigmoid junction; K52.9 Noninfective gastroenteritis and colitis, unspecified; E78.00 Pure hypercholesterolemia, unspecified; D64.9 Anemia, unspecified; Z79.899 Other long term (current) drug therapy; Z79.4 Long term (current) use of insulin; Z79.84 Long term (current) use of oral hypoglycemic drugs
CPT/HCPCS: 36415; 71045; 74176; 80048; 80053; 81003; 82270; 82947; 82962; 85014; 85018; 85025; 87015; 87045; 87427; 87449; 87493; 87804; 88305; 88312; 88313; 93970; 97110; 97116; 97162; 99285; C9113; J0360; J1815; J1956; J2250; J2405; J2765; J3010; J3490; J7040; Q9963

== ENCOUNTER 2019-07-04 11:04 | Inpatient (IN) | payer MEDICARE, MEDICAID ==
[~2019-07-04] VITALS: Ht 160 cm; Wt 60.8 kg
[~2019-07-04 11:04] MED LIST changes: -LISI1TAB13 PO; +OMEP20CA14 PO; -OMEP20CA5 PO
[2019-07-04] MEDS ORDERED: SODIUM CHLORIDE 0.9% 1000ML BAG (SEPSIS BOLUS) IV ONE (13:00)
[2019-07-04] MEDS ORDERED: HYDRALAZINE 20MG/ML VIAL IV ONE (13:00)
[2019-07-04] MEDS ORDERED: INSULIN REGULAR (HUMULIN R) UD 100 UNITS/ML SYR SUBCUT ONE (13:00)
[2019-07-04 13:19] LABS: BG BASE EXCESS -0.8 mmol/L (-2.0-2.0); BG CARBOXYHEMOGLOBIN 1.3 % (0.5-1.5); BG DEOXYHEMOGLOBIN 2.4 % (0.0-5.0); BG FRACTION INSPIRED OXYGEN 21; BG HCO3 ACT 21.2 mmol/L (22.0-26.0); BG METHEMOGLOBIN 0.3 % (0.0-1.5); BG OXYGEN SATURATION 97.6 % (92.0-98.5); BG PCO2 27.3 mmHg (35.0-45.0); BG PH 7.509 (7.350-7.450); BG PO2 95.2 mmHg (75.0-100.0); BG SAMPLE SITE RIGHT RADIAL; BG TOTAL HEMOGLOBIN 11.3 g/dL (12.0-18.0); BG VENT MODE ROOM AIR
[2019-07-04] MEDS ORDERED: INSULIN REGULAR (HUMULIN R) 300UNITS/3ML SUBCUT ONE (13:45)
[2019-07-04] MEDS ORDERED: LIDOCAINE HCL 1% 20ML VIAL (Pyxis) INJ ONE (14:08)
[2019-07-04 14:16] LABS: BASOPHILS % 1.3 % (0.0-2.0); HEMATOCRIT. 32.2 % (36.0-48.0); HEMOGLOBIN. 10.7 g/dL (12.0-16.0); LYMPHOCYTES % 8.6 % (20.0-50.0); MEAN CORPUSCULAR HEMOGLOBIN 28.4 pg (28.0-32.0); MEAN CORPUSCULAR VOLUME 85.4 fL (81.0-99.0); MEAN PLATELET VOLUME 8.2 fl (7.4-10.4); MONOCYTES % 4.7 % (2.0-8.0); NEUTROPHILS % 85.4 % (40.0-76.0); PLATELET 343 x1000/uL (130-400); RED BLOOD CELL COUNT 3.77 mill/uL (4.2-5.4); RED CELL DISTRIBUTION WIDTH 15.8 % (11.6-14.6)
[2019-07-04 14:21] LABS: CHLORIDE 102 mEq/L (98-107)
[2019-07-04 14:30] LABS: BETA HYDROXYBUTYRATE 1.7 mMol/L (0.0-0.3)
[2019-07-04] MEDS ORDERED: MORPHINE SULFATE 4 MG/ML CPJ (NOT FOR IM USE) IV STA (14:47)
[2019-07-04] MEDS ORDERED: ONDANSETRON HCL 4MG/2ML INJ IV STA (14:47)
[2019-07-04] MEDS ORDERED: OSELTAMIVIR 75MG CAPSULE PO ONE (16:15)
[2019-07-04] MEDS ORDERED: LEVOFLOXACIN 750MG PREMIX 150 ML IV ONE (16:15)
[2019-07-04] MEDS ORDERED: CLONIDINE 0.1MG TABLET PO PRN (16:30)
[2019-07-04] MEDS ORDERED: HYDRALAZINE 20MG/ML VIAL IV PRN (16:30)
[2019-07-04] MEDS ORDERED: ONDANSETRON HCL 4MG/2ML INJ IV PRN (16:30)
[2019-07-04] MEDS ORDERED: ACETAMINOPHEN 325MG TABLET PO PRN (16:30)
[2019-07-04] MEDS ORDERED: DEXTROSE 50% WATER 50ML SYRINGE IV PRN (16:30)
[2019-07-04] MEDS: INSULIN LISPRO 100 UNITS/ML SUBCUT SCH (19:10)
[2019-07-04] MEDS: BLOOD SUGAR DIAGNOSTIC STRIP TEST SCH ×2 (19:18→21:00)
[2019-07-04 21:35] VITALS: BP 188/79
[2019-07-04] MEDS ORDERED: POTASSIUM CHLORIDE 20MEQ TABLET SR PO NR (21:58)
[2019-07-04] MEDS: CLONIDINE 0.2MG TABLET PO SCH (22:37)
[2019-07-04] MEDS ORDERED: CEFTRIAXONE 2 G in DEXTROSE 5% WATER 50 ML IV SCH (23:00)
[2019-07-04] MEDS ORDERED: INSULIN GLARGINE UD 100 UNITS/ML SYR SUBCUT SCH (23:00)
[2019-07-04] MEDS: AMLODIPINE 10MG TABLET PO SCH (23:50)
[2019-07-04] MEDS: ATORVASTATIN CALCIUM 40MG TABLET PO SCH (23:50)
[2019-07-05] VITALS: BP 92/47
[2019-07-05] MEDS: INSULIN LISPRO 100 UNITS/ML SUBCUT SCH ×5 (00:02→21:22)
[2019-07-05] MEDS: SODIUM CHLORIDE 0.9% 1,000 ML IV SCH ×3 (00:07→21:42)
[2019-07-05 04:00] VITALS: BP 94/41
[2019-07-05] MEDS: CLONIDINE 0.2MG TABLET PO SCH (05:05)
[2019-07-05] MEDS: OMEPRAZOLE 20MG CAPSULE EXTENDED RELEASE PO SCH (06:40)
[2019-07-05] MEDS: BLOOD SUGAR DIAGNOSTIC STRIP TEST SCH ×4 (06:40→21:11)
[2019-07-05 07:23] LABS: EOSINOPHILS % 0.1 % (0.0-5.0); HEMATOCRIT. 29.2 % (36.0-48.0); HEMOGLOBIN. 9.6 g/dL (12.0-16.0); LYMPHOCYTES % 15.4 % (20.0-50.0); MEAN CORPUSCULAR HEMOGLOBIN 28.6 pg (28.0-32.0); MEAN CORPUSCULAR VOLUME 86.4 fL (81.0-99.0); MEAN PLATELET VOLUME 8.5 fl (7.4-10.4); MONOCYTES % 9.1 % (2.0-8.0); NEUTROPHILS % 74.4 % (40.0-76.0); PLATELET 259 x1000/uL (130-400); RED BLOOD CELL COUNT 3.37 mill/uL (4.2-5.4); RED CELL DISTRIBUTION WIDTH 15.8 % (11.6-14.6)
[2019-07-05 07:39] LABS: CHLORIDE 106 mEq/L (98-107)
[2019-07-05 08:00] VITALS: BP 87/46
[2019-07-05] MEDS ORDERED: CEFTRIAXONE 2 G PREMIX 50 ML IV SCH (09:00)
[2019-07-05] MEDS: AMLODIPINE 10MG TABLET PO SCH (09:00)
[2019-07-05] MEDS: PENTOXIFYLLINE 400MG TABLET PO SCH (09:16)
[2019-07-05] MEDS: CYCLOBENZAPRINE 10MG TABLET PO SCH (09:17)
[2019-07-05] MEDS: HEPARIN 5000 UNITS/ML VIAL SUBCUT SCH ×2 (09:17→21:23)
[2019-07-05] MEDS ORDERED: BROM3DRO EACHEYE (11:56)
[2019-07-05 12:00] VITALS: BP 104/47
[2019-07-05] MEDS ORDERED: NON FORMULARY PATIENT HOME MED XX SCH (12:00)
[2019-07-05 16:00] VITALS: BP 110/50
[2019-07-05 20:00] VITALS: BP 106/34
[2019-07-05] MEDS: CEFTRIAXONE 2 G in DEXTROSE 5% WATER 50 ML IV SCH (20:35)
[2019-07-05] MEDS: ATORVASTATIN CALCIUM 40MG TABLET PO SCH (21:10)
[2019-07-05] MEDS ORDERED: INSULIN GLARGINE UD 100 UNITS/ML SYR SUBCUT SCH (22:00)
[2019-07-06] VITALS: BP 108/45
[2019-07-06 04:00] VITALS: BP 110/41
[2019-07-06] MEDS ORDERED: BENZONATATE 100MG CAPSULE PO PRN (06:00)
[2019-07-06] MEDS ORDERED: IPRATROPIUM/ALBUTEROL 0.5-3(2.5)MG/3ML NEB HHN PRN (06:00)
[2019-07-06] MEDS: BLOOD SUGAR DIAGNOSTIC STRIP TEST SCH ×4 (06:38→21:55)
[2019-07-06] MEDS: INSULIN LISPRO 100 UNITS/ML SUBCUT SCH ×4 (07:47→22:25)
[2019-07-06 08:00] VITALS: BP 125/62
[2019-07-06] MEDS: PENTOXIFYLLINE 400MG TABLET PO SCH (08:30)
[2019-07-06] MEDS: OMEPRAZOLE 20MG CAPSULE EXTENDED RELEASE PO SCH (08:30)
[2019-07-06] MEDS: HEPARIN 5000 UNITS/ML VIAL SUBCUT SCH ×2 (08:31→21:55)
[2019-07-06] MEDS: CYCLOBENZAPRINE 10MG TABLET PO SCH (08:36)
[2019-07-06 12:00] VITALS: BP 133/75
[2019-07-06] MEDS: SODIUM CHLORIDE 0.9% 1,000 ML IV SCH (12:38)
[2019-07-06 16:00] VITALS: BP 139/69
[2019-07-06 16:26] LABS: BASOPHILS % 0.6 % (0.0-2.0); EOSINOPHILS % 0.5 % (0.0-5.0); HEMATOCRIT. 27.9 % (36.0-48.0); HEMOGLOBIN. 9.2 g/dL (12.0-16.0); LYMPHOCYTES % 21.2 % (20.0-50.0); MEAN CORPUSCULAR HEMOGLOBIN 28.6 pg (28.0-32.0); MEAN CORPUSCULAR VOLUME 86.7 fL (81.0-99.0); MEAN PLATELET VOLUME 8.3 fl (7.4-10.4); MONOCYTES % 5.8 % (2.0-8.0); NEUTROPHILS % 71.9 % (40.0-76.0); PLATELET 222 x1000/uL (130-400); RED BLOOD CELL COUNT 3.22 mill/uL (4.2-5.4); RED CELL DISTRIBUTION WIDTH 16.2 % (11.6-14.6)
[2019-07-06 16:51] LABS: CHLORIDE 108 mEq/L (98-107)
[2019-07-06 20:00] VITALS: BP 115/61
[2019-07-06] MEDS: CEFTRIAXONE 2 G in DEXTROSE 5% WATER 50 ML IV SCH (20:56)
[2019-07-06] MEDS: ATORVASTATIN CALCIUM 40MG TABLET PO SCH (21:55)
[2019-07-06] MEDS ORDERED: INSULIN GLARGINE UD 100 UNITS/ML SYR SUBCUT SCH (22:00)
[2019-07-07] VITALS: BP 130/49
[2019-07-07] MEDS: SODIUM CHLORIDE 0.9% 1,000 ML IV SCH (01:12)
[2019-07-07 04:00] VITALS: BP 180/70
[2019-07-07] MEDS: INSULIN LISPRO 100 UNITS/ML SUBCUT SCH ×2 (06:55→13:10)
[2019-07-07] MEDS: BLOOD SUGAR DIAGNOSTIC STRIP TEST SCH ×2 (06:55→13:16)
[2019-07-07] MEDS ORDERED: FAMOTIDINE 20MG TABLET PO SCH (07:40)
[2019-07-07 08:00] VITALS: BP 141/62
[2019-07-07] MEDS: PENTOXIFYLLINE 400MG TABLET PO SCH (09:21)
[2019-07-07] MEDS: CYCLOBENZAPRINE 10MG TABLET PO SCH (09:21)
[2019-07-07] MEDS: HEPARIN 5000 UNITS/ML VIAL SUBCUT SCH (09:21)
[2019-07-07 11:19] LABS: BASOPHILS % 0.8 % (0.0-2.0); EOSINOPHILS % 2.1 % (0.0-5.0); HEMATOCRIT. 25.2 % (36.0-48.0); HEMOGLOBIN. 8.4 g/dL (12.0-16.0); MEAN CORPUSCULAR HEMOGLOBIN 28.8 pg (28.0-32.0); MEAN CORPUSCULAR VOLUME 85.9 fL (81.0-99.0); MONOCYTES % 7.9 % (2.0-8.0); NEUTROPHILS % 66.2 % (40.0-76.0); PLATELET 211 x1000/uL (130-400); RED BLOOD CELL COUNT 2.93 mill/uL (4.2-5.4); RED CELL DISTRIBUTION WIDTH 15.8 % (11.6-14.6)
[2019-07-07] MEDS ORDERED: CEPH500C2 MT (14:48)
[2019-07-07] MEDS ORDERED: ALBU18HF2 IH (14:55)
[2019-07-07 15:51] VITALS: BP 128/71
== END 2019-07-07 17:07 | disposition home or self-care (01) | DRG 682 ==
LOC: ER 11:04 → 7WST 16:19 → ENRESERV 20:56
PROVIDERS: ADMIT Internal Medicine; ATTEND Internal Medicine
PROC: 02HV33Z Insertion of Infusion Device into Superior Vena Cava, Percutaneous Approach (ICD-10-PCS; principal; 2019-07-04)
PROC: B548ZZA Ultrasonography of Superior Vena Cava, Guidance (ICD-10-PCS; 2019-07-04)
DX: N17.0 Acute kidney failure with tubular necrosis (principal); E11.10 Type 2 diabetes mellitus with ketoacidosis without coma; E11.00 Type 2 diabetes mellitus with hyperosmolarity without nonketotic hyperglycemic-hyperosmolar coma (NKHHC); N12 Tubulo-interstitial nephritis, not specified as acute or chronic; E11.21 Type 2 diabetes mellitus with diabetic nephropathy; E78.5 Hyperlipidemia, unspecified; I10 Essential (primary) hypertension; E78.00 Pure hypercholesterolemia, unspecified; F17.210 Nicotine dependence, cigarettes, uncomplicated; J44.9 Chronic obstructive pulmonary disease, unspecified; K21.9 Gastro-esophageal reflux disease without esophagitis; Z79.84 Long term (current) use of oral hypoglycemic drugs; Z79.899 Other long term (current) drug therapy; Z91.19 Patient's noncompliance with other medical treatment and regimen; Z88.2 Allergy status to sulfonamides; Z79.4 Long term (current) use of insulin; Z88.8 Allergy status to other drugs, medicaments and biological substances
CPT/HCPCS: 36415; 36600; 71045; 74176; 76937; 80048; 80053; 82010; 82375; 82805; 82962; 83036; 83605; 83735; 83880; 84145; 84484; 85025; 87804; 93005; 97162; 99285; C1725; J0360; J0696; J1644; J1815; J1956; J2270; J2405; J3490; J7030; J7060

== ENCOUNTER 2020-01-26 04:24 | Inpatient (IN) | payer MEDICARE, MEDICAID ==
[~2020-01-26] VITALS: Ht 160 cm; Wt 28.6 kg
[2020-01-26] VITALS (9 sets, daily range): BP systolic 116–153; BP diastolic 42–74
[~2020-01-26 04:24] MED LIST changes: +ALBU18HF2 IH; +BROM3DRO EACHEYE; +CEPH500C2 MT; -INSLAN SUBCUT
[2020-01-26] MEDS ORDERED: IPRATROPIUM BROMIDE (0.02%) 0.5MG/2.5ML NEB HHN STA (04:45)
[2020-01-26] MEDS ORDERED: ALBUTEROL (0.083%) 2.5MG/3ML NEB HHN STA (04:45)
[2020-01-26] MEDS ORDERED: ONDANSETRON HCL 4MG/2ML INJ IV ONE (05:00)
[2020-01-26] MEDS ORDERED: CLONIDINE 0.2MG TABLET PO ONE (05:15)
[2020-01-26 05:20] LABS: BASOPHILS % 2.1 % (0.0-2.0); EOSINOPHILS % 3.7 % (0.0-5.0); LYMPHOCYTES % 29.6 % (20.0-50.0); MEAN CORPUSCULAR HEMOGLOBIN 24.9 pg (28.0-32.0); MEAN CORPUSCULAR VOLUME 77.2 fL (81.0-99.0); MEAN PLATELET VOLUME 8.3 fl (7.4-10.4); MONOCYTES % 11.1 % (2.0-8.0); NEUTROPHILS % 53.5 % (40.0-76.0); PLATELET 442 x1000/uL (130-400); RED BLOOD CELL COUNT 2.73 mill/uL (4.2-5.4); RED CELL DISTRIBUTION WIDTH 16.2 % (11.6-14.6)
[2020-01-26 05:26] LABS: CHLORIDE 100 mEq/L (98-107)
[2020-01-26 05:33] LABS: HEMOGLOBIN. 6.8 g/dL (12.0-16.0)
[2020-01-26] MEDS ORDERED: MAGNESIUM/ALUMINUM HYDROXIDE/SIMETHICONE 30ML UDC PO PRN (11:00)
[2020-01-26] MEDS ORDERED: ONDANSETRON HCL 4MG/2ML INJ IV PRN (11:00)
[2020-01-26] MEDS ORDERED: CLONIDINE 0.1MG TABLET PO PRN (11:00)
[2020-01-26] MEDS ORDERED: GUAIFENESIN 200MG/10ML SUGAR FREE UDC PO PRN (11:00)
[2020-01-26] MEDS ORDERED: DOCUSATE SODIUM 100MG CAPSULE PO PRN (11:00)
[2020-01-26] MEDS ORDERED: ACETAMINOPHEN 325MG TABLET PO PRN (11:00)
[2020-01-26] MEDS ORDERED: BROM3DRO EACHEYE (11:24)
[2020-01-26] MEDS ORDERED: BESI5DRO EACHEYE (11:26)
[2020-01-26] MEDS ORDERED: DEXTROSE 50% WATER 50ML SYRINGE IV PRN (12:30)
[2020-01-26] MEDS: BLOOD SUGAR DIAGNOSTIC STRIP TEST SCH ×3 (12:36→21:00)
[2020-01-26] MEDS: METHYLPREDNISOLONE SOD SUCC 40 MG/ML VIAL IV SCH (12:58)
[2020-01-26] MEDS: INSULIN LISPRO 100 UNITS/ML SUBCUT SCH ×3 (12:58→21:00)
[2020-01-26] MEDS: AMLODIPINE 10MG TABLET PO SCH (12:59)
[2020-01-26] MEDS: CEFTRIAXONE 1,000 MG in DEXTROSE 5% WATER 50 ML IV SCH (12:59)
[2020-01-26] MEDS: AZITHROMYCIN 500 MG in DEXT 5% WATER 250 ML IV SCH (13:07)
[2020-01-26] MEDS: DIPHENHYDRAMINE HCL/ZINC ACET 28 GM CREAM TOP SCH ×2 (17:11→23:12)
[2020-01-26 21:18] LABS: HEMOGLOBIN 7.3 g/dL (12.0-16.0)
[2020-01-26 21:24] LABS: INR 1.1; PROTHROMBIN TIME 11.3 sec (9.6-11.0)
[2020-01-26] MEDS: TRIAMCINOLONE ACETONIDE 0.025% CREAM 15GM TOP SCH (23:13)
[2020-01-27] VITALS: BP 158/53
[2020-01-27 01:00] VITALS: BP 129/66
[2020-01-27] MEDS: METHYLPREDNISOLONE SOD SUCC 40 MG/ML VIAL IV SCH ×3 (02:39→18:26)
[2020-01-27 02:55] LABS: BASOPHILS % 0.7 % (0.0-2.0); EOSINOPHILS % 0.3 % (0.0-5.0); HEMATOCRIT. 26.8 % (36.0-48.0); HEMOGLOBIN. 8.8 g/dL (12.0-16.0); LYMPHOCYTES % 9.7 % (20.0-50.0); MEAN CORPUSCULAR HEMOGLOBIN 26.3 pg (28.0-32.0); MEAN CORPUSCULAR VOLUME 80.2 fL (81.0-99.0); MEAN PLATELET VOLUME 7.7 fl (7.4-10.4); MONOCYTES % 10.8 % (2.0-8.0); NEUTROPHILS % 78.5 % (40.0-76.0); PLATELET 323 x1000/uL (130-400); RED BLOOD CELL COUNT 3.35 mill/uL (4.2-5.4); RED CELL DISTRIBUTION WIDTH 16.5 % (11.6-14.6)
[2020-01-27 03:00] LABS: CHLORIDE 103 mEq/L (98-107)
[2020-01-27 03:08] LABS: HDL CHOLESTEROL 58 mg/dL (40-59); LDL CHOLESTEROL 55 mg/dL (5-100)
[2020-01-27 03:51] LABS: VITAMIN B12 SERUM > 2000 pg/mL (211-911)
[2020-01-27] MEDS: BLOOD SUGAR DIAGNOSTIC STRIP TEST SCH ×4 (07:40→20:55)
[2020-01-27 08:00] VITALS: BP 136/82
[2020-01-27] MEDS: INSULIN LISPRO 100 UNITS/ML SUBCUT SCH ×4 (08:10→21:21)
[2020-01-27] MEDS: AMLODIPINE 10MG TABLET PO SCH (09:00)
[2020-01-27] MEDS: TRIAMCINOLONE ACETONIDE 0.025% CREAM 15GM TOP SCH ×2 (09:44→21:22)
[2020-01-27] MEDS: DIPHENHYDRAMINE HCL/ZINC ACET 28 GM CREAM TOP SCH ×2 (09:44→21:29)
[2020-01-27] MEDS: PANTOPRAZOLE SODIUM 40 MG/VIAL IV SCH (09:44)
[2020-01-27 09:49] LABS: BG BASE EXCESS -2.3 mmol/L (-2.0-2.0); BG CARBOXYHEMOGLOBIN 0.9 % (0.5-1.5); BG DEOXYHEMOGLOBIN 11.4 % (0.0-5.0); BG FRACTION INSPIRED OXYGEN 21; BG HCO3 ACT 23.3 mmol/L (22.0-26.0); BG METHEMOGLOBIN 0.3 % (0.0-1.5); BG OXYGEN SATURATION 88.5 % (92.0-98.5); BG OXYHEMOGLOBIN 87.4 % (94.0-97.0); BG PCO2 43.1 mmHg (35.0-45.0); BG PO2 55.8 mmHg (75.0-100.0); BG SAMPLE SITE RIGHT BRACHIAL; BG TOTAL HEMOGLOBIN 11.1 g/dL (12.0-18.0); BG VENT MODE ROOM AIR
[2020-01-27] MEDS ORDERED: FENTANYL CITRATE/PF 50MCG/ML 2ML VIAL ONE (10:44)
[2020-01-27] MEDS ORDERED: MIDAZOLAM HCL 5 MG/5 ML VIAL ONE (10:44)
[2020-01-27] MEDS ORDERED: MIDAZOLAM HCL 5 MG/5 ML VIAL IV ONE (11:01)
[2020-01-27] MEDS ORDERED: FENTANYL CITRATE/PF 50MCG/ML 2ML VIAL IV ONE (11:02)
[2020-01-27 12:00] VITALS: BP 142/86
[2020-01-27 13:09] LABS: TOTAL IRON BINDING CAPACITY 376 ug/dL (250-450)
[2020-01-27] MEDS: CEFTRIAXONE 1,000 MG in DEXTROSE 5% WATER 50 ML IV SCH (15:30)
[2020-01-27 18:00] VITALS: BP 155/82
[2020-01-27] MEDS: AZITHROMYCIN 500 MG in DEXT 5% WATER 250 ML IV SCH (18:26)
[2020-01-27 20:00] VITALS: BP 173/71
[2020-01-27] MEDS ORDERED: SORBITOL 70% SOLN 30ML PO NR (21:00)
[2020-01-28] VITALS: BP 157/54
[2020-01-28] MEDS: METHYLPREDNISOLONE SOD SUCC 40 MG/ML VIAL IV SCH ×2 (01:29→10:00)
[2020-01-28 04:00] VITALS: BP 145/62
[2020-01-28] MEDS ORDERED: SORBITOL 70% SOLN 30ML PO NR (06:00)
[2020-01-28] MEDS: INSULIN LISPRO 100 UNITS/ML SUBCUT SCH ×2 (06:32→12:10)
[2020-01-28 06:45] LABS: HEMATOCRIT. 33.1 % (36.0-48.0); HEMOGLOBIN. 10.8 g/dL (12.0-16.0); MEAN CORPUSCULAR HEMOGLOBIN 26.2 pg (28.0-32.0); MEAN CORPUSCULAR VOLUME 80.2 fL (81.0-99.0); MEAN PLATELET VOLUME 8.3 fl (7.4-10.4); PLATELET 415 x1000/uL (130-400); RED BLOOD CELL COUNT 4.12 mill/uL (4.2-5.4); RED CELL DISTRIBUTION WIDTH 15.9 % (11.6-14.6)
[2020-01-28 06:55] LABS: CHLORIDE 107 mEq/L (98-107)
[2020-01-28] MEDS: BLOOD SUGAR DIAGNOSTIC STRIP TEST SCH ×2 (07:10→11:43)
[2020-01-28 08:00] VITALS: BP 213/92
[2020-01-28] MEDS: AMLODIPINE 10MG TABLET PO SCH (08:56)
[2020-01-28] MEDS: PANTOPRAZOLE SODIUM 40 MG/VIAL IV SCH (08:56)
[2020-01-28] MEDS: TRIAMCINOLONE ACETONIDE 0.025% CREAM 15GM TOP SCH (09:00)
[2020-01-28] MEDS ORDERED: NA PHOS,M-B/NA PHOS,DI-BA ENEMA 118ML PR NR (11:00)
[2020-01-28] MEDS: DIPHENHYDRAMINE HCL/ZINC ACET 28 GM CREAM TOP SCH (11:19)
[2020-01-28 11:46] VITALS: BP 195/83
[2020-01-28] MEDS: CEFTRIAXONE 1,000 MG in DEXTROSE 5% WATER 50 ML IV SCH (12:00)
[2020-01-28] MEDS ORDERED: EYE OP SCH ×2 (13:00)
[2020-01-28] MEDS ORDERED: PROLENSA 0.07% OP SCH (13:00)
[2020-01-28] MEDS ORDERED: BESIVANCE 0.6% OP SCH (13:00)
[2020-01-28 13:22] LABS: PLATELET ESTIMATE INCREASED
== END 2020-01-28 12:45 | disposition left against medical advice (07) | DRG 377 ==
LOC: ER 04:52 → 7WST 05:54 → ENRESERV 08:21 → 8WST 01-27 11:48
PROVIDERS: ADMIT Hospitalist; ATTEND Hospitalist
PROC: 30233N1 Transfusion of Nonautologous Red Blood Cells into Peripheral Vein, Percutaneous Approach (ICD-10-PCS; principal; 2020-01-26)
PROC: 5A09357 Assistance with Respiratory Ventilation, Less than 24 Consecutive Hours, Continuous Positive Airway Pressure (ICD-10-PCS; 2020-01-26)
PROC: 0DD68ZX Extraction of Stomach, Via Natural or Artificial Opening Endoscopic, Diagnostic (ICD-10-PCS; 2020-01-27)
DX: K29.71 Gastritis, unspecified, with bleeding (principal); J96.00 Acute respiratory failure, unspecified whether with hypoxia or hypercapnia; E44.1 Mild protein-calorie malnutrition; I13.0 Hypertensive heart and chronic kidney disease with heart failure and stage 1 through stage 4 chronic kidney disease, or unspecified chronic kidney disease; Z68.1 Body mass index [BMI] 19.9 or less, adult; D62 Acute posthemorrhagic anemia; K31.84 Gastroparesis; K21.9 Gastro-esophageal reflux disease without esophagitis; E11.43 Type 2 diabetes mellitus with diabetic autonomic (poly)neuropathy; D50.9 Iron deficiency anemia, unspecified; E11.22 Type 2 diabetes mellitus with diabetic chronic kidney disease; E78.5 Hyperlipidemia, unspecified; I50.9 Heart failure, unspecified; F12.90 Cannabis use, unspecified, uncomplicated; K57.90 Diverticulosis of intestine, part unspecified, without perforation or abscess without bleeding; L40.9 Psoriasis, unspecified; D63.8 Anemia in other chronic diseases classified elsewhere; N18.9 Chronic kidney disease, unspecified; K80.20 Calculus of gallbladder without cholecystitis without obstruction; K59.00 Constipation, unspecified; F41.9 Anxiety disorder, unspecified; E11.51 Type 2 diabetes mellitus with diabetic peripheral angiopathy without gangrene; K44.9 Diaphragmatic hernia without obstruction or gangrene; Z53.29 Procedure and treatment not carried out because of patient's decision for other reasons; J43.9 Emphysema, unspecified; Z20.828 Contact with and (suspected) exposure to other viral communicable diseases; Z88.2 Allergy status to sulfonamides; Z79.2 Long term (current) use of antibiotics; Z79.84 Long term (current) use of oral hypoglycemic drugs; Z79.899 Other long term (current) drug therapy
CPT/HCPCS: 36415; 36600; 71045; 76700; 80053; 80061; 82140; 82375; 82607; 82728; 82746; 82805; 82962; 83036; 83540; 83550; 83880; 84450; 84460; 84484; 85014; 85018; 85025; 85049; 85384; 86850; 86900; 86920; 88305; 88312; 88313; 93005; 93970; 94640; 94660; 99291; C9113; J0456; J0696; J1815; J2250; J2405; J2920; J3010; J7060; P9016; U0003-CS

== ENCOUNTER 2020-10-08 01:51 | Inpatient (IN) | payer MEDICARE, MEDICAID ==
[~2020-10-08] VITALS: Ht 172.7 cm; Wt 52.2 kg
[2020-10-08] VITALS (18 sets, daily range): BP systolic 105–145; BP diastolic 32–97
[~2020-10-08 01:51] MED LIST changes: +AMLO10TA80 MT; +BESI5DRO EACHEYE; -CEPH500C2 MT; +DOCU250C14 MT; +HYDROCHLOROTHIAZIDE; +INSULIN; -METF-414 PO
[2020-10-08] MEDS ORDERED: ONDANSETRON HCL 4MG/2ML INJ IV STA (02:32)
[2020-10-08] MEDS ORDERED: MORPHINE SULFATE 4 MG/ML CPJ (NOT FOR IM USE) IV STA (02:32)
[2020-10-08] MEDS ORDERED: SODIUM CHLORIDE 0.9% 1,000 ML IV ONE (02:45)
[2020-10-08 03:10] LABS: BG BASE EXCESS 1.3 mmol/L (-2.0-2.0); BG CARBOXYHEMOGLOBIN 0.4 % (0.5-1.5); BG DEOXYHEMOGLOBIN 8.6 % (0.0-5.0); BG HCO3 ACT 26.1 mmol/L (22.0-26.0); BG METHEMOGLOBIN 0.3 % (0.0-1.5); BG OXYGEN SATURATION 91.3 % (92.0-98.5); BG OXYHEMOGLOBIN 90.7 % (94.0-97.0); BG PCO2 42.1 mmHg (35.0-45.0); BG SAMPLE SITE RIGHT BRACHIAL; BG TOTAL HEMOGLOBIN 7.8 g/dL (12.0-18.0); BG VENT MODE ROOM AIR
[2020-10-08 03:45] LABS: HEMATOCRIT. 25.9 % (36.0-48.0); HEMOGLOBIN. 8.1 g/dL (12.0-16.0); MEAN CORPUSCULAR HEMOGLOBIN 27.5 pg (28.0-32.0); MEAN CORPUSCULAR VOLUME 87.6 fL (81.0-99.0); MEAN PLATELET VOLUME 8.6 fl (7.4-10.4); PLATELET 418 x1000/uL (130-400); RED BLOOD CELL COUNT 2.96 mill/uL (4.2-5.4); RED CELL DISTRIBUTION WIDTH 15.3 % (11.6-14.6)
[2020-10-08 03:47] LABS: CHLORIDE 87 mEq/L (98-107)
[2020-10-08 03:48] LABS: INR 0.9; PROTHROMBIN TIME 10.1 sec (9.6-11.0)
[2020-10-08 03:57] LABS: BETA HYDROXYBUTYRATE 2.2 mMol/L (0.0-0.3)
[2020-10-08 03:58] LABS: CLARITY URINE CLEAR (CLEAR); COLOR URINE YELLOW (YELLOW); KETONES URINE NEGATIVE (NEGATIVE); LEUKOCYTE ESTERASE URINE NEGATIVE (NEGATIVE); NITRITE URINE NEGATIVE (NEGATIVE); OCCULT BLOOD URINE NEGATIVE (NEGATIVE); PROTEIN URINE 2+ (NEGATIVE); SPECIFIC GRAVITY URINE 1.016 (1.005-1.030); UROBILINOGEN URINE 0.2 E.U./dL (0.2-1.0)
[2020-10-08 04:24] LABS: PLATELET ESTIMATE NORMAL
[2020-10-08] MEDS ORDERED: INSULIN REGULAR (DRIP) 100 UNITS in SODIUM CHLORIDE 0.9% 99 ML IV SCH (05:00)
[2020-10-08] MEDS ORDERED: MAGNESIUM/ALUMINUM HYDROXIDE/SIMETHICONE 30ML UDC PO PRN (06:00)
[2020-10-08] MEDS ORDERED: ONDANSETRON HCL 4MG/2ML INJ IV PRN (06:00)
[2020-10-08] MEDS ORDERED: INSULIN REGULAR (DRIP) 100 UNITS in SODIUM CHLORIDE 0.9% 100 ML IV SCH ×2 (06:00→06:30)
[2020-10-08] MEDS ORDERED: GUAIFENESIN 200MG/10ML SUGAR FREE UDC PO PRN (06:00)
[2020-10-08] MEDS ORDERED: ENOXAPARIN 40MG/0.4ML SYR SUBCUT SCH (06:00)
[2020-10-08] MEDS ORDERED: CLONIDINE 0.1MG TABLET PO PRN (06:00)
[2020-10-08] MEDS ORDERED: DEXTROSE 50% WATER 50ML SYRINGE IV PRN ×3 (06:30→14:45)
[2020-10-08] MEDS: BLOOD SUGAR DIAGNOSTIC STRIP TEST SCH ×10 (07:00→21:03)
[2020-10-08] MEDS: AMLODIPINE 10MG TABLET PO SCH ×2 (08:10→09:40)
[2020-10-08] MEDS: SODIUM CHLORIDE 0.45% 1,000 ML IV SCH ×2 (08:11→09:50)
[2020-10-08] MEDS: ENOXAPARIN 30MG/0.3ML SYR SUBCUT SCH ×2 (09:40→09:49)
[2020-10-08] MEDS: PANTOPRAZOLE SODIUM 40 MG/VIAL IV SCH ×2 (09:48→09:50)
[2020-10-08] MEDS: INSULIN GLARGINE UD 100 UNITS/ML SYR SUBCUT SCH (13:58)
[2020-10-08] MEDS: INSULIN LISPRO 100 UNITS/ML SUBCUT SCH ×2 (17:54→21:10)
[2020-10-09] VITALS (16 sets, daily range): BP systolic 92–146; BP diastolic 50–83
[2020-10-09 07:15] LABS: CHLORIDE 99 mEq/L (98-107)
[2020-10-09] MEDS: INSULIN LISPRO 100 UNITS/ML SUBCUT SCH ×4 (07:40→20:46)
[2020-10-09] MEDS: BLOOD SUGAR DIAGNOSTIC STRIP TEST SCH ×4 (07:41→21:00)
[2020-10-09 08:15] LABS: BASOPHILS % 0.5 % (0.0-2.0); EOSINOPHILS % 1.9 % (0.0-5.0); LYMPHOCYTES % 18.6 % (20.0-50.0); MEAN CORPUSCULAR VOLUME 86.4 fL (81.0-99.0); MEAN PLATELET VOLUME 7.8 fl (7.4-10.4); MONOCYTES % 5.7 % (2.0-8.0); NEUTROPHILS % 73.3 % (40.0-76.0); PLATELET 357 x1000/uL (130-400); RED BLOOD CELL COUNT 2.39 mill/uL (4.2-5.4); RED CELL DISTRIBUTION WIDTH 16.4 % (11.6-14.6)
[2020-10-09 08:27] LABS: HEMOGLOBIN. 6.7 g/dL (12.0-16.0)
[2020-10-09 08:28] LABS: HEMATOCRIT. 20.6 % (36.0-48.0)
[2020-10-09] MEDS: INSULIN GLARGINE UD 100 UNITS/ML SYR SUBCUT SCH (09:46)
[2020-10-09] MEDS: SODIUM CHLORIDE 0.45% 1,000 ML IV SCH (09:48)
[2020-10-09] MEDS: ACETAMINOPHEN 325MG TABLET PO PRN (20:37)
[2020-10-09] MEDS: LORAZEPAM 2MG/ML CPJ IV PRN (22:53)
[2020-10-10] VITALS: BP 110/49
[2020-10-10] MEDS: SODIUM CHLORIDE 0.45% 1,000 ML IV SCH ×2 (03:22→22:11)
[2020-10-10] MEDS: LORAZEPAM 2MG/ML CPJ IV PRN ×2 (03:22→22:11)
[2020-10-10 04:00] VITALS: BP 135/68
[2020-10-10 06:24] LABS: BASOPHILS % 0.6 % (0.0-2.0); EOSINOPHILS % 1.9 % (0.0-5.0); HEMATOCRIT. 28.4 % (36.0-48.0); HEMOGLOBIN. 9.8 g/dL (12.0-16.0); LYMPHOCYTES % 18.9 % (20.0-50.0); MEAN CORPUSCULAR VOLUME 86.9 fL (81.0-99.0); MONOCYTES % 8.7 % (2.0-8.0); NEUTROPHILS % 69.9 % (40.0-76.0); PLATELET 269 x1000/uL (130-400); RED BLOOD CELL COUNT 3.26 mill/uL (4.2-5.4); RED CELL DISTRIBUTION WIDTH 14.1 % (11.6-14.6)
[2020-10-10 06:31] LABS: CHLORIDE 101 mEq/L (98-107)
[2020-10-10] MEDS: INSULIN LISPRO 100 UNITS/ML SUBCUT SCH ×4 (06:50→22:04)
[2020-10-10] MEDS: BLOOD SUGAR DIAGNOSTIC STRIP TEST SCH ×4 (06:50→21:54)
[2020-10-10 09:18] VITALS: BP 176/83
[2020-10-10] MEDS: FAMOTIDINE 20MG/2ML VIAL IV SCH (09:56)
[2020-10-10] MEDS: INSULIN GLARGINE UD 100 UNITS/ML SYR SUBCUT SCH (09:57)
[2020-10-10 12:00] VITALS: BP 152/78
[2020-10-10 16:00] VITALS: BP 120/45
[2020-10-10] MEDS: ACETAMINOPHEN 325MG TABLET PO PRN (19:57)
[2020-10-10 20:00] VITALS: BP 139/67
[2020-10-11] VITALS: BP 120/71
[2020-10-11] MEDS: LORAZEPAM 2MG/ML CPJ IV PRN (03:17)
[2020-10-11 04:00] VITALS: BP 134/72
[2020-10-11] MEDS: INSULIN LISPRO 100 UNITS/ML SUBCUT SCH ×2 (06:50→12:52)
[2020-10-11] MEDS: BLOOD SUGAR DIAGNOSTIC STRIP TEST SCH ×2 (06:52→12:21)
[2020-10-11 07:12] LABS: BASOPHILS % 0.5 % (0.0-2.0); EOSINOPHILS % 4.1 % (0.0-5.0); HEMATOCRIT. 28.8 % (36.0-48.0); MEAN CORPUSCULAR HEMOGLOBIN 29.8 pg (28.0-32.0); MEAN PLATELET VOLUME 7.7 fl (7.4-10.4); MONOCYTES % 9.4 % (2.0-8.0); PLATELET 271 x1000/uL (130-400); RED BLOOD CELL COUNT 3.34 mill/uL (4.2-5.4); RED CELL DISTRIBUTION WIDTH 13.8 % (11.6-14.6)
[2020-10-11 07:51] LABS: CHLORIDE 102 mEq/L (98-107)
[2020-10-11 08:00] VITALS: BP 131/79
[2020-10-11] MEDS: ENOXAPARIN 30MG/0.3ML SYR SUBCUT SCH (08:44)
[2020-10-11] MEDS: FAMOTIDINE 20MG/2ML VIAL IV SCH (08:44)
[2020-10-11] MEDS ORDERED: DOCUSATE SODIUM 100MG CAPSULE PO SCH (09:15)
[2020-10-11] MEDS ORDERED: LACTULOSE 20G/30ML UDC PO SCH (09:30)
[2020-10-11] MEDS: INSULIN GLARGINE UD 100 UNITS/ML SYR SUBCUT SCH (10:12)
[2020-10-11 11:34] VITALS: BP 131/79
== END 2020-10-11 16:12 | disposition home or self-care (01) | DRG 637 ==
LOC: ER 01:51 → MICUNO 04:44 → ENRESERV 07:38 → 8WST 15:47
PROVIDERS: ADMIT Hospitalist; ATTEND Hospitalist
PROC: 30233N1 Transfusion of Nonautologous Red Blood Cells into Peripheral Vein, Percutaneous Approach (ICD-10-PCS; principal; 2020-10-09)
DX: E11.00 Type 2 diabetes mellitus with hyperosmolarity without nonketotic hyperglycemic-hyperosmolar coma (NKHHC) (principal); G93.41 Metabolic encephalopathy; N17.0 Acute kidney failure with tubular necrosis; E87.1 Hypo-osmolality and hyponatremia; D63.8 Anemia in other chronic diseases classified elsewhere; E11.22 Type 2 diabetes mellitus with diabetic chronic kidney disease; I12.9 Hypertensive chronic kidney disease with stage 1 through stage 4 chronic kidney disease, or unspecified chronic kidney disease; I25.10 Atherosclerotic heart disease of native coronary artery without angina pectoris; J44.9 Chronic obstructive pulmonary disease, unspecified; N18.9 Chronic kidney disease, unspecified; R63.1 Polydipsia; F12.90 Cannabis use, unspecified, uncomplicated; F17.200 Nicotine dependence, unspecified, uncomplicated; Z88.2 Allergy status to sulfonamides; Z88.8 Allergy status to other drugs, medicaments and biological substances; Z79.51 Long term (current) use of inhaled steroids; Z79.899 Other long term (current) drug therapy; D72.829 Elevated white blood cell count, unspecified
CPT/HCPCS: 36415; 36600; 71045; 74176; 80048; 80053; 81003; 82010; 82375; 82805; 82962; 83036; 83605; 83735; 83930; 84145; 84484; 85025; 86850; 86900; 86920; 93005; 93970; 97162; 99291; C1893; C9113; J1650; J1815; J2060; J2270; J2405; J3490; J7030; J7040; J7050; P9016

== ENCOUNTER 2021-04-25 16:01 | Inpatient (IN) | payer MEDICARE, MEDICAID ==
[~2021-04-25] VITALS: Ht 161.9 cm; Wt 71.7 kg
[~2021-04-25 16:01] MED LIST changes: -HYDROCHLOROTHIAZIDE; -INSULIN
[2021-04-25] MEDS ORDERED: FAMOTIDINE 20MG/2ML VIAL IV STA (16:40)
[2021-04-25] MEDS ORDERED: ONDANSETRON HCL 4MG/2ML INJ IV STA (16:40)
[2021-04-25] MEDS ORDERED: MORPHINE SULFATE 4 MG/ML CPJ (NOT FOR IM USE) IV STA (16:40)
[2021-04-25] MEDS ORDERED: SODIUM CHLORIDE 0.9% 1,000 ML IV ONE (16:45)
[2021-04-25] MEDS ORDERED: CLONIDINE 0.2MG TABLET PO ONE (16:45)
[2021-04-25 17:15] LABS: BASOPHILS % 1.3 % (0.0-2.0); EOSINOPHILS % 1.6 % (0.0-5.0); HEMATOCRIT. 29.5 % (36.0-48.0); HEMOGLOBIN. 9.6 g/dL (12.0-16.0); LYMPHOCYTES % 24.6 % (20.0-50.0); MEAN CORPUSCULAR HEMOGLOBIN 28.9 pg (28.0-32.0); MEAN CORPUSCULAR VOLUME 88.9 fL (81.0-99.0); MEAN PLATELET VOLUME 7.9 fl (7.4-10.4); MONOCYTES % 13.6 % (2.0-8.0); NEUTROPHILS % 58.9 % (40.0-76.0); PLATELET 304 x1000/uL (130-400); RED BLOOD CELL COUNT 3.31 mill/uL (4.2-5.4); RED CELL DISTRIBUTION WIDTH 17.3 % (11.6-14.6)
[2021-04-25 17:22] LABS: CHLORIDE 101 mEq/L (98-107)
[2021-04-25 17:31] LABS: BETA HYDROXYBUTYRATE 0.1 mMol/L (0.0-0.3)
[2021-04-25 17:45] LABS: CLARITY URINE TURBID (CLEAR); COLOR URINE YELLOW (YELLOW); KETONES URINE NEGATIVE (NEGATIVE); LEUKOCYTE ESTERASE URINE 2+ (NEGATIVE); NITRITE URINE NEGATIVE (NEGATIVE); OCCULT BLOOD URINE 2+ (NEGATIVE); PROTEIN URINE 3+ (NEGATIVE); SPECIFIC GRAVITY URINE 1.018 (1.005-1.030); UROBILINOGEN URINE 0.2 E.U./dL (0.2-1.0)
[2021-04-25] MEDS ORDERED: INSULIN REGULAR (HUMULIN R) UD 100 UNITS/ML SYR SUBCUT ONE (20:30)
[2021-04-25] MEDS ORDERED: CEFTRIAXONE 1 G PREMIX 50 ML IV ONE (20:30)
[2021-04-25] MEDS ORDERED: INSULIN REGULAR (HUMULIN R) 300UNITS/3ML VIAL SUBCUT NR (21:00)
[2021-04-25] MEDS ORDERED: CEFTRIAXONE 1 G PREMIX 50 ML IV SCH (23:15)
[2021-04-25] MEDS ORDERED: DIPHENHYDRAMINE 50MG/ML VIAL IV PRN (23:15)
[2021-04-25] MEDS ORDERED: ACETAMINOPHEN 325MG TABLET PO PRN ×2 (23:15)
[2021-04-25] MEDS ORDERED: CLONIDINE 0.1MG TABLET PO PRN (23:15)
[2021-04-25] MEDS ORDERED: DEXTROSE 50% WATER 50ML SYRINGE IV PRN (23:15)
[2021-04-25] MEDS: SODIUM CHLORIDE 0.9% 1,000 ML IV SCH (23:30)
[2021-04-26] MEDS ORDERED: NALOXONE HCL 0.4MG/ML VIAL IV PRN (00:45)
[2021-04-26] MEDS: INSULIN LISPRO 100 UNITS/ML SUBCUT SCH ×4 (08:34→21:31)
[2021-04-26] MEDS: BLOOD SUGAR DIAGNOSTIC STRIP TEST SCH ×4 (08:52→21:19)
[2021-04-26 10:00] VITALS: BP 183/97
[2021-04-26] MEDS ORDERED: INSULIN GLARGINE UD 100 UNITS/ML SYR SUBCUT SCH ×2 (10:00)
[2021-04-26] MEDS: AMLODIPINE 10MG TABLET PO SCH (10:01)
[2021-04-26] MEDS: PANTOPRAZOLE SODIUM 40 MG/VIAL IV SCH (10:01)
[2021-04-26] MEDS: ENOXAPARIN 30MG/0.3ML SYR SUBCUT SCH (10:02)
[2021-04-26] MEDS: DOCUSATE SODIUM 100MG CAPSULE PO SCH ×2 (10:03→17:44)
[2021-04-26] MEDS: HYDRALAZINE 20MG/ML VIAL IV PRN (10:05)
[2021-04-26 11:23] VITALS: BP 183/97
[2021-04-26 12:00] VITALS: BP 123/55
[2021-04-26 16:00] VITALS: BP 148/67
[2021-04-26] MEDS: FLUCONAZOLE 100MG TABLET PO SCH (17:58)
[2021-04-26 20:00] VITALS: BP 143/74
[2021-04-26] MEDS ORDERED: CEFTRIAXONE 1,000 MG in DEXTROSE 5% WATER 50 ML IV SCH (21:00)
[2021-04-26] MEDS: MICONAZOLE NITRATE 100MG VAG SUPP VG SCH (21:19)
[2021-04-27] VITALS: BP 177/71
[2021-04-27] MEDS: HYDRALAZINE 20MG/ML VIAL IV PRN (01:27)
[2021-04-27 04:00] VITALS: BP 156/62
[2021-04-27] MEDS: BLOOD SUGAR DIAGNOSTIC STRIP TEST SCH ×4 (06:38→21:36)
[2021-04-27] MEDS: INSULIN LISPRO 100 UNITS/ML SUBCUT SCH ×4 (06:38→21:37)
[2021-04-27 08:00] VITALS: BP 135/59
[2021-04-27] MEDS: ENOXAPARIN 30MG/0.3ML SYR SUBCUT SCH (10:07)
[2021-04-27] MEDS: PANTOPRAZOLE SODIUM 40 MG/VIAL IV SCH (10:07)
[2021-04-27] MEDS: DOCUSATE SODIUM 100MG CAPSULE PO SCH ×2 (10:07→17:24)
[2021-04-27] MEDS: AMLODIPINE 10MG TABLET PO SCH (10:07)
[2021-04-27] MEDS: INSULIN GLARGINE UD 100 UNITS/ML SYR SUBCUT SCH (10:10)
[2021-04-27 12:00] VITALS: BP 147/76
[2021-04-27] MEDS: FLUCONAZOLE 100MG TABLET PO SCH (13:06)
[2021-04-27 16:00] VITALS: BP 141/75
[2021-04-27] MEDS: SODIUM CHLORIDE 0.9% 1,000 ML IV SCH ×2 (17:24→17:34)
[2021-04-27 20:00] VITALS: BP 133/64
[2021-04-27] MEDS ORDERED: CEFTRIAXONE 1,000 MG in DEXTROSE 5% WATER 50 ML IV SCH (21:00)
[2021-04-27] MEDS: HYDROCODONE/ACETAMINOPHEN 5/325MG TABLET PO PRN (21:36)
[2021-04-27] MEDS: MICONAZOLE NITRATE 100MG VAG SUPP VG SCH (23:48)
[2021-04-28] VITALS: BP 171/71
[2021-04-28] MEDS: HYDRALAZINE 20MG/ML VIAL IV PRN ×2 (00:39→11:51)
[2021-04-28] MEDS: ONDANSETRON HCL 4MG/2ML INJ IV PRN ×3 (02:41→11:51)
[2021-04-28 04:00] VITALS: BP 141/65
[2021-04-28] MEDS: INSULIN LISPRO 100 UNITS/ML SUBCUT SCH ×2 (06:36→12:04)
[2021-04-28] MEDS: BLOOD SUGAR DIAGNOSTIC STRIP TEST SCH ×2 (06:36→12:04)
[2021-04-28] MEDS: HYDROCODONE/ACETAMINOPHEN 5/325MG TABLET PO PRN (06:45)
[2021-04-28 08:00] VITALS: BP 170/106
[2021-04-28] MEDS: DOCUSATE SODIUM 100MG CAPSULE PO SCH (08:17)
[2021-04-28] MEDS: FLUCONAZOLE 100MG TABLET PO SCH (08:17)
[2021-04-28] MEDS: PANTOPRAZOLE SODIUM 40 MG/VIAL IV SCH (08:17)
[2021-04-28] MEDS: AMLODIPINE 10MG TABLET PO SCH (08:18)
[2021-04-28] MEDS: ENOXAPARIN 30MG/0.3ML SYR SUBCUT SCH (08:18)
[2021-04-28] MEDS: INSULIN GLARGINE UD 100 UNITS/ML SYR SUBCUT SCH (10:00)
[2021-04-28] MEDS: SODIUM CHLORIDE 0.9% 1,000 ML IV SCH (11:30)
[2021-04-28 12:00] VITALS: BP 182/52
[2021-04-28 16:44] VITALS: BP 117/54
== END 2021-04-28 17:45 | disposition home or self-care (01) | DRG 871 ==
LOC: ER 16:01 → 7EST 21:01 → ENRESERV 04-26 07:51
PROVIDERS: ADMIT Internal Medicine; ATTEND Internal Medicine
DX: A41.9 Sepsis, unspecified organism (principal); E43 Unspecified severe protein-calorie malnutrition; N30.00 Acute cystitis without hematuria; B37.3 Candidiasis of vulva and vagina; E11.22 Type 2 diabetes mellitus with diabetic chronic kidney disease; E11.65 Type 2 diabetes mellitus with hyperglycemia; I12.9 Hypertensive chronic kidney disease with stage 1 through stage 4 chronic kidney disease, or unspecified chronic kidney disease; J44.9 Chronic obstructive pulmonary disease, unspecified; K21.9 Gastro-esophageal reflux disease without esophagitis; Z20.822 Contact with and (suspected) exposure to COVID-19; K29.70 Gastritis, unspecified, without bleeding; N18.9 Chronic kidney disease, unspecified; Z87.440 Personal history of urinary (tract) infections; Z87.891 Personal history of nicotine dependence; Z90.49 Acquired absence of other specified parts of digestive tract; Z88.2 Allergy status to sulfonamides; Z68.27 Body mass index [BMI] 27.0-27.9, adult
CPT/HCPCS: 36415; 71045; 74176; 80053; 81003; 82010; 82962; 84484; 85025; 87426; 93005; 99285; C9113; J0360; J0696; J1200; J1650; J1815; J2270; J2405; J3490; J7030; J7060

== ENCOUNTER 2021-06-24 13:55 | Emergency (ER) | payer MEDICARE, MEDICAID ==
[~2021-06-24] VITALS: Ht 160 cm; Wt 63.0 kg
[2021-06-24] MEDS ORDERED: ACETAMINOPHEN WITH CODEINE 300/30MG TABLET PO STA (15:21)
[2021-06-24] MEDS ORDERED: AMLODIPINE 5MG TABLET PO ONE (15:30)
[2021-06-24] MEDS ORDERED: SODIUM CHLORIDE 0.9% 1,000 ML IV ONE (15:30)
[2021-06-24 16:56] LABS: MEAN CORPUSCULAR HEMOGLOBIN 26.6 pg (28.0-32.0); MEAN CORPUSCULAR VOLUME 82.6 fL (81.0-99.0); PLATELET 413 x1000/uL (130-400); RED BLOOD CELL COUNT 3.39 mill/uL (4.2-5.4); RED CELL DISTRIBUTION WIDTH 17.5 % (11.6-14.6)
[2021-06-24 17:05] LABS: CHLORIDE 99 mEq/L (98-107)
[2021-06-24 17:07] LABS: INR 0.9; PARTIAL THROMBOPLASTIN TIME 24.2 sec (23.4-31.0); PROTHROMBIN TIME 9.8 sec (9.6-11.0)
[2021-06-24 17:16] LABS: PLATELET ESTIMATE INCREASED
[2021-06-24] MEDS ORDERED: INSULIN REGULAR (HUMULIN R) UD 100 UNITS/ML SYR SUBCUT ONE (17:30)
[2021-06-24] MEDS ORDERED: INSULIN REGULAR (HUMULIN R) 300UNITS/3ML VIAL SUBCUT NR (18:00)
[2021-06-24] MEDS ORDERED: NAPR-677 MT (18:50)
[2021-06-24] MEDS ORDERED: CLONIDINE 0.1MG TABLET PO ONE (19:00)
[2021-06-24 20:00] VITALS: BP 157/71
== END 2021-06-24 21:03 | disposition home or self-care (01) ==
LOC: ER 13:55
DX: M25.551 Pain in right hip (principal); M25.521 Pain in right elbow; R10.9 Unspecified abdominal pain; R42 Dizziness and giddiness; E11.65 Type 2 diabetes mellitus with hyperglycemia; J44.9 Chronic obstructive pulmonary disease, unspecified; I10 Essential (primary) hypertension; W01.0XXA Fall on same level from slipping, tripping and stumbling without subsequent striking against object, initial encounter; Y93.9 Activity, unspecified; Y92.9 Unspecified place or not applicable; Z98.890 Other specified postprocedural states
CPT/HCPCS: 36415; 70450; 72192; 73080; 80053; 82962; 85025; 85610; 85730; 93005; 96360; 96361; 99285; J1815; J7030

== ENCOUNTER 2021-07-16 10:52 | Inpatient (IN) | payer MEDICARE, MEDICAID ==
[~2021-07-16] VITALS: Ht 160 cm; Wt 51.3 kg
[~2021-07-16 10:52] MED LIST changes: +NAPR-677 MT
[2021-07-16 12:06] LABS: CHLORIDE 97 mEq/L (98-107)
[2021-07-16 12:11] LABS: BASOPHILS % 1.3 % (0.0-2.0); EOSINOPHILS % 1.6 % (0.0-5.0); LYMPHOCYTES % 11.8 % (20.0-50.0); MEAN CORPUSCULAR HEMOGLOBIN 26.4 pg (28.0-32.0); MEAN CORPUSCULAR VOLUME 80.7 fL (81.0-99.0); MEAN PLATELET VOLUME 8.6 fl (7.4-10.4); MONOCYTES % 7.2 % (2.0-8.0); NEUTROPHILS % 78.1 % (40.0-76.0); PLATELET 266 x1000/uL (130-400); RED BLOOD CELL COUNT 2.51 mill/uL (4.2-5.4); RED CELL DISTRIBUTION WIDTH 16.8 % (11.6-14.6)
[2021-07-16 12:16] LABS: HEMATOCRIT. 20.3 % (36.0-48.0); HEMOGLOBIN. 6.6 g/dL (12.0-16.0)
[2021-07-16] MEDS ORDERED: SODIUM CHLORIDE 0.9% 1,000 ML IV ONE (12:30)
[2021-07-16 14:33] LABS: CLARITY URINE CLOUDY (CLEAR); COLOR URINE YELLOW (YELLOW); KETONES URINE NEGATIVE (NEGATIVE); LEUKOCYTE ESTERASE URINE NEGATIVE (NEGATIVE); NITRITE URINE NEGATIVE (NEGATIVE); OCCULT BLOOD URINE 2+ (NEGATIVE); PH URINE 7.5 (4.5-8.0); PROTEIN URINE 2+ (NEGATIVE); SPECIFIC GRAVITY URINE 1.011 (1.005-1.030); UROBILINOGEN URINE 0.2 E.U./dL (0.2-1.0)
[2021-07-16] MEDS ORDERED: AMLODIPINE 10MG TABLET PO SCH (21:15)
[2021-07-16] MEDS ORDERED: NALOXONE HCL 0.4MG/ML VIAL IV PRN (21:15)
[2021-07-16] MEDS ORDERED: LORAZEPAM 2MG/ML CPJ IV PRN (21:15)
[2021-07-16] MEDS ORDERED: ONDANSETRON HCL 4MG/2ML INJ IV PRN (21:15)
[2021-07-16] MEDS ORDERED: DEXTROSE 50% WATER 50ML SYRINGE IV PRN (21:15)
[2021-07-16] MEDS ORDERED: HYDROCODONE/ACETAMINOPHEN 5/325MG TABLET PO PRN (21:15)
[2021-07-16] MEDS ORDERED: CLONIDINE 0.1MG TABLET PO PRN (21:15)
[2021-07-16] MEDS ORDERED: ENOXAPARIN 40MG/0.4ML SYR SUBCUT SCH (21:15)
[2021-07-16] MEDS ORDERED: ACETAMINOPHEN 650MG/20.3ML UDC GT PRN (21:15)
[2021-07-16] MEDS: SODIUM CHLORIDE 0.9% 1,000 ML IV SCH (21:15)
[2021-07-16] MEDS ORDERED: HYDRALAZINE 20MG/ML VIAL IV PRN (21:15)
[2021-07-16] MEDS ORDERED: MORPHINE SULFATE 2 MG/ML CPJ (NOT FOR IM USE) IV PRN (21:15)
[2021-07-16] MEDS ORDERED: INSULIN GLARGINE UD 100 UNITS/ML SYR SUBCUT SCH (22:00)
[2021-07-16] MEDS: CYCLOBENZAPRINE 10MG TABLET PO SCH (23:17)
[2021-07-16] MEDS: INSULIN LISPRO 100 UNITS/ML SUBCUT SCH (23:17)
[2021-07-16] MEDS: PANTOPRAZOLE SODIUM 40 MG/VIAL IV SCH (23:24)
[2021-07-16] MEDS: LACTULOSE 20G/30ML UDC PO SCH (23:24)
[2021-07-16] MEDS: BLOOD SUGAR DIAGNOSTIC STRIP TEST SCH (23:25)
[2021-07-17 03:20] VITALS: BP 184/78
[2021-07-17 04:00] VITALS: BP 184/78
[2021-07-17] MEDS ORDERED: OMEPRAZOLE 20MG CAPSULE EXTENDED RELEASE PO SCH (06:30)
[2021-07-17 06:49] LABS: EOSINOPHILS % 2.8 % (0.0-5.0); HEMATOCRIT. 25.1 % (36.0-48.0); HEMOGLOBIN. 8.4 g/dL (12.0-16.0); LYMPHOCYTES % 12.1 % (20.0-50.0); MEAN CORPUSCULAR HEMOGLOBIN 26.5 pg (28.0-32.0); MEAN CORPUSCULAR VOLUME 79.3 fL (81.0-99.0); MEAN PLATELET VOLUME 8.3 fl (7.4-10.4); MONOCYTES % 5.2 % (2.0-8.0); NEUTROPHILS % 78.9 % (40.0-76.0); PLATELET 246 x1000/uL (130-400); RED BLOOD CELL COUNT 3.16 mill/uL (4.2-5.4); RED CELL DISTRIBUTION WIDTH 16.6 % (11.6-14.6)
[2021-07-17] MEDS: INSULIN LISPRO 100 UNITS/ML SUBCUT SCH ×4 (06:49→21:29)
[2021-07-17] MEDS: BLOOD SUGAR DIAGNOSTIC STRIP TEST SCH ×3 (06:49→20:18)
[2021-07-17] MEDS: LACTULOSE 20G/30ML UDC PO SCH ×3 (06:50→20:16)
[2021-07-17 08:00] VITALS: BP 164/74
[2021-07-17] MEDS ORDERED: ENOXAPARIN 30MG/0.3ML SYR SUBCUT SCH (09:00)
[2021-07-17] MEDS: GLIPIZIDE 10MG TABLET PO SCH ×2 (09:00→10:46)
[2021-07-17] MEDS: PENTOXIFYLLINE 400MG TABLET PO SCH (09:00)
[2021-07-17] MEDS: THIAMINE HCL 100MG TABLET PO SCH (10:46)
[2021-07-17] MEDS: AMLODIPINE 10MG TABLET PO SCH (10:46)
[2021-07-17] MEDS: CYCLOBENZAPRINE 10MG TABLET PO SCH (10:46)
[2021-07-17] MEDS: DOCUSATE SODIUM 250MG CAPSULE PO SCH ×2 (10:47→17:00)
[2021-07-17 12:00] VITALS: BP 160/70
[2021-07-17 16:00] VITALS: BP 158/68
[2021-07-17] MEDS ORDERED: PROMETHAZINE/DEXTROMETHORPHAN 6.25-15MG/5ML BOTTLE 120ML PO PRN (16:45)
[2021-07-17 20:00] VITALS: BP 156/79
[2021-07-17] MEDS: PANTOPRAZOLE SODIUM 40 MG/VIAL IV SCH (20:16)
[2021-07-17] MEDS: GUAIFENESIN 600MG ER TABLET PO SCH (20:16)
[2021-07-17] MEDS: SODIUM CHLORIDE 0.9% 1,000 ML IV SCH (21:31)
[2021-07-17] MEDS ORDERED: INSULIN GLARGINE UD 100 UNITS/ML SYR SUBCUT SCH (22:00)
[2021-07-18] VITALS: BP 123/72
[2021-07-18 04:00] VITALS: BP 137/78
[2021-07-18] MEDS: BLOOD SUGAR DIAGNOSTIC STRIP TEST SCH ×2 (05:30→12:10)
[2021-07-18] MEDS: NYSTATIN 100,000 UNITS/ML 5ML UDC SSW SCH ×2 (05:30→13:27)
[2021-07-18] MEDS: LACTULOSE 20G/30ML UDC PO SCH ×2 (05:30→14:00)
[2021-07-18] MEDS: INSULIN LISPRO 100 UNITS/ML SUBCUT SCH ×2 (05:31→12:40)
[2021-07-18 08:00] VITALS: BP 158/61
[2021-07-18] MEDS: GUAIFENESIN 600MG ER TABLET PO SCH (09:43)
[2021-07-18] MEDS: DOCUSATE SODIUM 250MG CAPSULE PO SCH ×2 (09:43→17:03)
[2021-07-18] MEDS: AMLODIPINE 10MG TABLET PO SCH (09:43)
[2021-07-18] MEDS: PENTOXIFYLLINE 400MG TABLET PO SCH (09:43)
[2021-07-18] MEDS: CYCLOBENZAPRINE 10MG TABLET PO SCH (09:43)
[2021-07-18] MEDS: THIAMINE HCL 100MG TABLET PO SCH (09:45)
[2021-07-18 10:09] LABS: HEMATOCRIT 24.7 % (36.0-48.0); HEMOGLOBIN 8.6 g/dL (12.0-16.0); MEAN CORPUSCULAR HEMOGLOBIN 27.1 pg (28.0-32.0); MEAN CORPUSCULAR VOLUME 78.4 fL (81.0-99.0); PLATELET 237 x1000/uL (130-400); RED BLOOD CELL COUNT 3.15 mill/uL (4.2-5.4); RED CELL DISTRIBUTION WIDTH 16.8 % (11.6-14.6)
[2021-07-18 12:00] VITALS: BP 150/50
[2021-07-18] MEDS: SODIUM CHLORIDE 0.9% 1,000 ML IV SCH (13:27)
[2021-07-18 16:00] VITALS: BP 169/60
[2021-07-18 17:47] VITALS: BP 139/57
== END 2021-07-18 19:50 | disposition home or self-care (01) | DRG 812 ==
LOC: ER 10:59 → MICUSO 12:41 → 8WST 07-17 01:25
PROVIDERS: ADMIT Internal Medicine; ATTEND Internal Medicine
PROC: 30233N1 Transfusion of Nonautologous Red Blood Cells into Peripheral Vein, Percutaneous Approach (ICD-10-PCS; principal; 2021-07-16)
DX: D50.0 Iron deficiency anemia secondary to blood loss (chronic) (principal); N17.9 Acute kidney failure, unspecified; E44.1 Mild protein-calorie malnutrition; I12.9 Hypertensive chronic kidney disease with stage 1 through stage 4 chronic kidney disease, or unspecified chronic kidney disease; B86 Scabies; E11.22 Type 2 diabetes mellitus with diabetic chronic kidney disease; E11.43 Type 2 diabetes mellitus with diabetic autonomic (poly)neuropathy; J44.9 Chronic obstructive pulmonary disease, unspecified; K31.84 Gastroparesis; N18.9 Chronic kidney disease, unspecified; Z20.822 Contact with and (suspected) exposure to COVID-19; E78.00 Pure hypercholesterolemia, unspecified; E11.40 Type 2 diabetes mellitus with diabetic neuropathy, unspecified; Z87.891 Personal history of nicotine dependence; Z90.49 Acquired absence of other specified parts of digestive tract; Z88.2 Allergy status to sulfonamides; Z88.8 Allergy status to other drugs, medicaments and biological substances; Z87.19 Personal history of other diseases of the digestive system; Z68.20 Body mass index [BMI] 20.0-20.9, adult
CPT/HCPCS: 36415; 71045; 74176; 80048; 80053; 81003; 82010; 82962; 83880; 84484; 85025; 85027; 86850; 86900; 86920; 87426; 93005; 99291; C9113; J0360; J1815; J2060; J7030; P9016

== ENCOUNTER 2021-08-18 22:45 | Inpatient (IN) | payer MEDICARE, MEDICAID ==
[~2021-08-18] VITALS: Ht 160 cm; Wt 56.4 kg
[2021-08-18] MEDS ORDERED: SODIUM CHLORIDE 0.9% 1,000 ML IV ONE (23:15)
[2021-08-19 00:04] LABS: HEMATOCRIT. 25.3 % (36.0-48.0); HEMOGLOBIN. 8.5 g/dL (12.0-16.0); MEAN CORPUSCULAR HEMOGLOBIN 28.1 pg (28.0-32.0); MEAN CORPUSCULAR VOLUME 84.1 fL (81.0-99.0); MEAN PLATELET VOLUME 7.5 fl (7.4-10.4); PLATELET 329 x1000/uL (130-400); RED BLOOD CELL COUNT 3.01 mill/uL (4.2-5.4); RED CELL DISTRIBUTION WIDTH 21.8 % (11.6-14.6)
[2021-08-19] MEDS ORDERED: PANTOPRAZOLE SODIUM 40 MG/VIAL IV STA (00:10)
[2021-08-19 00:13] LABS: CHLORIDE 104 mEq/L (98-107)
[2021-08-19 00:14] LABS: PROTHROMBIN TIME 10.4 sec (9.6-11.0)
[2021-08-19 02:06] LABS: CLARITY URINE CLEAR (CLEAR); COLOR URINE YELLOW (YELLOW); KETONES URINE NEGATIVE (NEGATIVE); LEUKOCYTE ESTERASE URINE 2+ (NEGATIVE); NITRITE URINE NEGATIVE (NEGATIVE); OCCULT BLOOD URINE TRACE (NEGATIVE); PROTEIN URINE 2+ (NEGATIVE); SPECIFIC GRAVITY URINE 1.011 (1.005-1.030); UROBILINOGEN URINE 0.2 E.U./dL (0.2-1.0)
[2021-08-19] MEDS ORDERED: ACETAMINOPHEN 325MG TABLET PO PRN ×2 (05:30)
[2021-08-19] MEDS ORDERED: NA PHOS,M-B/NA PHOS,DI-BA ENEMA 118ML PR PRN (05:30)
[2021-08-19] MEDS ORDERED: GUAIFENESIN 200MG/10ML SUGAR FREE UDC PO PRN (05:30)
[2021-08-19] MEDS ORDERED: ACETAMINOPHEN 650MG SUPP PR PRN ×2 (05:30)
[2021-08-19] MEDS ORDERED: ONDANSETRON HCL 4MG/2ML INJ IV PRN (05:30)
[2021-08-19] MEDS ORDERED: IPRATROPIUM/ALBUTEROL 0.5-3(2.5)MG/3ML NEB HHN PRN (05:30)
[2021-08-19] MEDS ORDERED: MAGNESIUM/ALUMINUM HYDROXIDE/SIMETHICONE 30ML UDC PO PRN (05:30)
[2021-08-19 06:07] LABS: PLATELET ESTIMATE NORMAL
[2021-08-19] MEDS ORDERED: DEXTROSE 50% WATER 50ML SYRINGE IV ONE (06:45)
[2021-08-19] MEDS ORDERED: INSULIN REGULAR (HUMULIN R) 300UNITS/3ML VIAL IV SCH (06:45)
[2021-08-19] MEDS ORDERED: DEXTROSE 50% WATER 50ML SYRINGE IV PRN (07:30)
[2021-08-19 08:00] VITALS: BP 155/61
[2021-08-19] MEDS ORDERED: DOCUSATE SODIUM 100MG CAPSULE PO PRN (09:00)
[2021-08-19] MEDS ORDERED: SODIUM POLYSTYRENE SULFONATE 15 G/60 ML BOT PO SCH (10:00)
[2021-08-19 12:00] VITALS: BP 193/82
[2021-08-19] MEDS: BLOOD SUGAR DIAGNOSTIC STRIP TEST SCH ×3 (13:00→21:47)
[2021-08-19] MEDS: SODIUM CHLORIDE 0.9% 1,000 ML IV SCH (13:06)
[2021-08-19] MEDS: INSULIN LISPRO (MEDIUM DOSE) 100 UNITS/ML SUBCUT SCH ×3 (13:18→21:46)
[2021-08-19] MEDS ORDERED: FAMO20TA8 PO (14:53)
[2021-08-19] MEDS ORDERED: LISI20TA31 MT (14:54)
[2021-08-19 16:29] VITALS: BP 153/65
[2021-08-19 20:00] VITALS: BP 162/71
[2021-08-19] MEDS: PANTOPRAZOLE SODIUM 40 MG/VIAL IV SCH (21:14)
[2021-08-19] MEDS: CLONIDINE 0.1MG TABLET PO PRN (23:24)
[2021-08-20] VITALS (19 sets, daily range): BP systolic 128–195; BP diastolic 56–95
[2021-08-20] MEDS: SODIUM CHLORIDE 0.9% 1,000 ML IV SCH ×2 (02:03→18:35)
[2021-08-20 02:04] LABS: BASOPHILS % 1.4 % (0.0-2.0); EOSINOPHILS % 1.7 % (0.0-5.0); HEMATOCRIT. 21.7 % (36.0-48.0); HEMOGLOBIN. 7.2 g/dL (12.0-16.0); LYMPHOCYTES % 20.8 % (20.0-50.0); MEAN CORPUSCULAR VOLUME 84.6 fL (81.0-99.0); MEAN PLATELET VOLUME 7.7 fl (7.4-10.4); MONOCYTES % 6.3 % (2.0-8.0); NEUTROPHILS % 69.8 % (40.0-76.0); PLATELET 292 x1000/uL (130-400); RED BLOOD CELL COUNT 2.57 mill/uL (4.2-5.4); RED CELL DISTRIBUTION WIDTH 22.5 % (11.6-14.6)
[2021-08-20 02:34] LABS: CHLORIDE 107 mEq/L (98-107)
[2021-08-20 02:41] LABS: LDL CHOLESTEROL 66 mg/dL (5-100)
[2021-08-20 02:42] LABS: HDL CHOLESTEROL 80 mg/dL (40-59); TOTAL IRON BINDING CAPACITY 313 ug/dL (250-450)
[2021-08-20 02:44] LABS: CREATINE KINASE 60 IU/L (26-192)
[2021-08-20 02:55] LABS: FOLIC ACID (FOLATE) SERUM 9.5 ng/mL (>5.38)
[2021-08-20] MEDS: CLONIDINE 0.1MG TABLET PO PRN ×2 (05:16→12:52)
[2021-08-20] MEDS: INSULIN LISPRO (MEDIUM DOSE) 100 UNITS/ML SUBCUT SCH ×4 (06:44→21:00)
[2021-08-20] MEDS: BLOOD SUGAR DIAGNOSTIC STRIP TEST SCH ×4 (06:44→20:35)
[2021-08-20] MEDS: CEPHALEXIN 250MG CAPSULE PO SCH ×3 (09:15→16:21)
[2021-08-20] MEDS: PANTOPRAZOLE SODIUM 40 MG/VIAL IV SCH ×2 (09:15→21:10)
[2021-08-20 09:48] LABS: CREATINE KINASE 102 IU/L (26-192)
[2021-08-20 09:54] LABS: HEMATOCRIT 29.7 % (36.0-48.0); HEMOGLOBIN 10.1 g/dL (12.0-16.0)
[2021-08-20] MEDS ORDERED: AMLODIPINE 10MG TABLET PO SCH (10:00)
[2021-08-20 11:44] LABS: PROTHROMBIN TIME 10.9 sec (9.6-11.0)
[2021-08-20] MEDS: HYDRALAZINE HCL 25MG TABLET PO SCH ×2 (16:21→22:03)
[2021-08-20 17:52] LABS: HEMATOCRIT 28.1 % (36.0-48.0); HEMOGLOBIN 9.4 g/dL (12.0-16.0)
[2021-08-20] MEDS: INSULIN GLARGINE 100 UNITS/ML SUBCUT SCH (22:05)
[2021-08-21 03:51] VITALS: BP 151/78
[2021-08-21] MEDS: HYDRALAZINE HCL 25MG TABLET PO SCH ×3 (04:59→21:11)
[2021-08-21] MEDS: BLOOD SUGAR DIAGNOSTIC STRIP TEST SCH ×4 (05:28→19:57)
[2021-08-21] MEDS: INSULIN LISPRO (MEDIUM DOSE) 100 UNITS/ML SUBCUT SCH ×4 (05:39→20:35)
[2021-08-21 08:00] VITALS: BP 162/78
[2021-08-21] MEDS: PANTOPRAZOLE SODIUM 40 MG/VIAL IV SCH ×2 (08:57→21:14)
[2021-08-21] MEDS: AMLODIPINE 5MG TABLET PO SCH ×2 (09:00→21:11)
[2021-08-21] MEDS: CEPHALEXIN 250MG CAPSULE PO SCH ×2 (09:00→17:00)
[2021-08-21 09:44] LABS: BASOPHILS % 1.2 % (0.0-2.0); EOSINOPHILS % 4.7 % (0.0-5.0); HEMATOCRIT. 26.9 % (36.0-48.0); HEMOGLOBIN. 9.2 g/dL (12.0-16.0); LYMPHOCYTES % 16.9 % (20.0-50.0); MEAN CORPUSCULAR HEMOGLOBIN 29.3 pg (28.0-32.0); MEAN CORPUSCULAR VOLUME 85.7 fL (81.0-99.0); MEAN PLATELET VOLUME 7.2 fl (7.4-10.4); MONOCYTES % 7.3 % (2.0-8.0); NEUTROPHILS % 69.9 % (40.0-76.0); PLATELET 262 x1000/uL (130-400); RED BLOOD CELL COUNT 3.13 mill/uL (4.2-5.4)
[2021-08-21 10:00] LABS: PHOSPHORUS 3.6 mg/dL (2.5-4.9)
[2021-08-21 12:00] VITALS: BP 188/87
[2021-08-21] MEDS: SODIUM CHLORIDE 0.9% 1,000 ML IV SCH (12:00)
[2021-08-21] MEDS: HYDRALAZINE 20MG/ML VIAL IV PRN (13:48)
[2021-08-21] MEDS: DEXT 5%/0.45% NACL 1000ML 1,000 ML IV SCH (13:49)
[2021-08-21 16:00] VITALS: BP 152/68
[2021-08-21] MEDS ORDERED: POTASSIUM CHLORIDE 20MEQ TABLET SR PO NR (18:30)
[2021-08-21 19:57] VITALS: BP 121/86
[2021-08-21] MEDS: INSULIN GLARGINE 100 UNITS/ML SUBCUT SCH (21:42)
[2021-08-22] VITALS: BP 129/51
[2021-08-22 03:52] VITALS: BP 158/80
[2021-08-22] MEDS: BLOOD SUGAR DIAGNOSTIC STRIP TEST SCH ×4 (04:57→21:00)
[2021-08-22] MEDS: INSULIN LISPRO (MEDIUM DOSE) 100 UNITS/ML SUBCUT SCH ×4 (05:33→22:57)
[2021-08-22] MEDS: HYDRALAZINE HCL 25MG TABLET PO SCH ×3 (05:35→23:00)
[2021-08-22 08:00] VITALS: BP 143/57
[2021-08-22] MEDS: PANTOPRAZOLE SODIUM 40 MG/VIAL IV SCH ×2 (08:11→22:55)
[2021-08-22] MEDS: DEXT 5%/0.45% NACL 1000ML 1,000 ML IV SCH (08:11)
[2021-08-22] MEDS: AMLODIPINE 5MG TABLET PO SCH ×2 (08:11→22:56)
[2021-08-22] MEDS: CEPHALEXIN 250MG CAPSULE PO SCH ×2 (08:12→17:01)
[2021-08-22 12:00] VITALS: BP 131/52
[2021-08-22] MEDS ORDERED: BROMFENAC SODIUM EACHEYE SCH (12:00)
[2021-08-22] MEDS ORDERED: BESIFLOXACIN HYDROCHLORIDE EACHEYE SCH (13:00)
[2021-08-22 16:00] VITALS: BP 154/66
[2021-08-22] MEDS: IRON SUCROSE COMPLEX 100 MG/5 ML ML IV SCH (19:13)
[2021-08-22 20:00] VITALS: BP 145/55
[2021-08-22] MEDS: INSULIN GLARGINE 100 UNITS/ML SUBCUT SCH (22:59)
[2021-08-23] VITALS: BP 141/61
[2021-08-23 04:00] VITALS: BP 152/66
[2021-08-23 06:30] LABS: EOSINOPHILS % 2.7 % (0.0-5.0); HEMATOCRIT. 27.6 % (36.0-48.0); HEMOGLOBIN. 9.4 g/dL (12.0-16.0); LYMPHOCYTES % 20.5 % (20.0-50.0); MEAN CORPUSCULAR HEMOGLOBIN 28.9 pg (28.0-32.0); MEAN CORPUSCULAR VOLUME 85.1 fL (81.0-99.0); MEAN PLATELET VOLUME 7.5 fl (7.4-10.4); MONOCYTES % 7.5 % (2.0-8.0); NEUTROPHILS % 68.3 % (40.0-76.0); PLATELET 240 x1000/uL (130-400); RED BLOOD CELL COUNT 3.24 mill/uL (4.2-5.4); RED CELL DISTRIBUTION WIDTH 19.8 % (11.6-14.6)
[2021-08-23] MEDS: BLOOD SUGAR DIAGNOSTIC STRIP TEST SCH ×4 (06:57→21:00)
[2021-08-23] MEDS: HYDRALAZINE HCL 25MG TABLET PO SCH ×3 (06:58→22:24)
[2021-08-23] MEDS: INSULIN LISPRO (MEDIUM DOSE) 100 UNITS/ML SUBCUT SCH ×4 (07:31→22:26)
[2021-08-23 08:00] VITALS: BP 162/76
[2021-08-23] MEDS: PANTOPRAZOLE SODIUM 40 MG/VIAL IV SCH ×2 (09:00→22:22)
[2021-08-23] MEDS: AMLODIPINE 5MG TABLET PO SCH ×2 (09:56→22:23)
[2021-08-23] MEDS: CEPHALEXIN 250MG CAPSULE PO SCH ×2 (09:56→17:16)
[2021-08-23 12:00] VITALS: BP 148/64
[2021-08-23] MEDS ORDERED: ATOR20TA65 PO (13:41)
[2021-08-23] MEDS ORDERED: FERR325T6 PO (13:42)
[2021-08-23] MEDS ORDERED: PANT40TA51 PO (13:43)
[2021-08-23 16:00] VITALS: BP 145/64
[2021-08-23] MEDS: IRON SUCROSE COMPLEX 100 MG/5 ML ML IV SCH (17:16)
[2021-08-23 20:00] VITALS: BP 169/72
[2021-08-23] MEDS: INSULIN GLARGINE 100 UNITS/ML SUBCUT SCH (22:25)
[2021-08-24] VITALS (7 sets, daily range): BP systolic 157–185; BP diastolic 51–85
[2021-08-24] MEDS ORDERED: DEXT 5%/0.45% NACL 1000ML 1,000 ML IV SCH
[2021-08-24] MEDS: HYDRALAZINE HCL 25MG TABLET PO SCH ×4 (06:00→22:34)
[2021-08-24] MEDS: BLOOD SUGAR DIAGNOSTIC STRIP TEST SCH ×4 (07:10→21:00)
[2021-08-24] MEDS: INSULIN LISPRO (MEDIUM DOSE) 100 UNITS/ML SUBCUT SCH ×4 (07:40→22:36)
[2021-08-24] MEDS: HYDRALAZINE 20MG/ML VIAL IV PRN (08:24)
[2021-08-24] MEDS: PANTOPRAZOLE SODIUM 40 MG/VIAL IV SCH ×3 (08:25→23:12)
[2021-08-24] MEDS: CEPHALEXIN 250MG CAPSULE PO SCH ×2 (09:00→16:32)
[2021-08-24] MEDS: AMLODIPINE 5MG TABLET PO SCH ×2 (09:00→22:33)
[2021-08-24 09:19] LABS: BASOPHILS % 0.4 % (0.0-2.0); EOSINOPHILS % 2.3 % (0.0-5.0); HEMATOCRIT. 31.1 % (36.0-48.0); HEMOGLOBIN. 10.3 g/dL (12.0-16.0); LYMPHOCYTES % 11.6 % (20.0-50.0); MEAN CORPUSCULAR HEMOGLOBIN 28.1 pg (28.0-32.0); MEAN CORPUSCULAR VOLUME 85.1 fL (81.0-99.0); MEAN PLATELET VOLUME 7.5 fl (7.4-10.4); MONOCYTES % 7.6 % (2.0-8.0); NEUTROPHILS % 78.1 % (40.0-76.0); PLATELET 252 x1000/uL (130-400); RED BLOOD CELL COUNT 3.65 mill/uL (4.2-5.4)
[2021-08-24 09:36] LABS: CHLORIDE 108 mEq/L (98-107)
[2021-08-24 13:47] LABS: PROTHROMBIN TIME 10.8 sec (9.6-11.0)
[2021-08-24] MEDS ORDERED: PROPOFOL 200MG/20ML VIAL IV ONE (16:22)
[2021-08-24] MEDS ORDERED: MIDAZOLAM HCL 2 MG/2 ML VIAL ONE (16:23)
[2021-08-24] MEDS: IRON SUCROSE COMPLEX 100 MG/5 ML ML IV SCH ×2 (18:08→18:14)
[2021-08-24] MEDS: INSULIN GLARGINE 100 UNITS/ML SUBCUT SCH (22:36)
[2021-08-25 04:00] VITALS: BP 185/85
[2021-08-25] MEDS: HYDRALAZINE 20MG/ML VIAL IV PRN (04:42)
[2021-08-25] MEDS: HYDRALAZINE HCL 25MG TABLET PO SCH (05:19)
[2021-08-25 05:20] VITALS: BP 154/70
[2021-08-25] MEDS: BLOOD SUGAR DIAGNOSTIC STRIP TEST SCH (06:43)
[2021-08-25] MEDS: INSULIN LISPRO (MEDIUM DOSE) 100 UNITS/ML SUBCUT SCH (06:45)
[2021-08-25 07:58] VITALS: BP 142/69
[2021-08-25] MEDS: AMLODIPINE 5MG TABLET PO SCH (08:20)
[2021-08-25] MEDS: PANTOPRAZOLE SODIUM 40 MG/VIAL IV SCH (08:20)
[2021-08-25 08:36] VITALS: BP 142/69
== END 2021-08-25 11:20 | DRG 378 ==
LOC: ER 22:45 → MICUSO 08-19 04:16 → 8WST 08-19 08:30
PROVIDERS: ADMIT Internal Medicine; ATTEND Internal Medicine
PROC: 30233N1 Transfusion of Nonautologous Red Blood Cells into Peripheral Vein, Percutaneous Approach (ICD-10-PCS; 2021-08-20)
PROC: 0DB78ZX Excision of Stomach, Pylorus, Via Natural or Artificial Opening Endoscopic, Diagnostic (ICD-10-PCS; principal; 2021-08-24)
DX: K29.71 Gastritis, unspecified, with bleeding (principal); N17.9 Acute kidney failure, unspecified; I13.0 Hypertensive heart and chronic kidney disease with heart failure and stage 1 through stage 4 chronic kidney disease, or unspecified chronic kidney disease; N39.0 Urinary tract infection, site not specified; I50.32 Chronic diastolic (congestive) heart failure; G93.40 Encephalopathy, unspecified; N18.9 Chronic kidney disease, unspecified; J44.9 Chronic obstructive pulmonary disease, unspecified; K52.9 Noninfective gastroenteritis and colitis, unspecified; K57.90 Diverticulosis of intestine, part unspecified, without perforation or abscess without bleeding; E87.5 Hyperkalemia; E11.22 Type 2 diabetes mellitus with diabetic chronic kidney disease; E11.51 Type 2 diabetes mellitus with diabetic peripheral angiopathy without gangrene; N32.89 Other specified disorders of bladder; K56.41 Fecal impaction; E78.00 Pure hypercholesterolemia, unspecified; E11.43 Type 2 diabetes mellitus with diabetic autonomic (poly)neuropathy; E11.65 Type 2 diabetes mellitus with hyperglycemia; E78.5 Hyperlipidemia, unspecified; F03.90 Unspecified dementia, unspecified severity, without behavioral disturbance, psychotic disturbance, mood disturbance, and anxiety; I25.10 Atherosclerotic heart disease of native coronary artery without angina pectoris; K31.84 Gastroparesis; Z20.822 Contact with and (suspected) exposure to COVID-19; D50.9 Iron deficiency anemia, unspecified; M19.90 Unspecified osteoarthritis, unspecified site; K44.9 Diaphragmatic hernia without obstruction or gangrene; K21.9 Gastro-esophageal reflux disease without esophagitis; Z90.49 Acquired absence of other specified parts of digestive tract; Z82.49 Family history of ischemic heart disease and other diseases of the circulatory system; Z88.2 Allergy status to sulfonamides; Z79.899 Other long term (current) drug therapy
CPT/HCPCS: 36415; 71045; 74176; 76770; 80048; 80053; 80061; 81003; 82270; 82550; 82607; 82705; 82728; 82746; 82962; 83540; 83550; 83605; 83735; 83880; 84100; 84443; 84484; 85014; 85018; 85025; 85044; 85049; 85384; 86850; 86900; 86920; 87015; 87045; 87426; 87427; 87449; 88305; 88312; 88313; 89055; 93005; 97162; 97166; 99291; C1893; C9113; J0360; J1815; J2250; J2704; J7030; J7042; P9016; A4315

== ENCOUNTER 2021-11-18 12:36 | Inpatient (IN) | payer MEDICARE, MEDICAID ==
[~2021-11-18] VITALS: Ht 160 cm; Wt 62.6 kg
[~2021-11-18 12:36] MED LIST changes: +ATOR20TA65 PO; -CYCL10TA7 PO; -DOCU250C14 MT; +FERR325T6 PO; +LISI20TA31 MT; -LOVA20TA2 PO; -OMEP20CA14 PO; +PANT40TA51 PO; -PENT400T16 PO
[2021-11-18 14:48] LABS: BASOPHILS % 1.2 % (0.0-2.0); HEMATOCRIT. 34.7 % (36.0-48.0); HEMOGLOBIN. 11.2 g/dL (12.0-16.0); LYMPHOCYTES % 19.1 % (20.0-50.0); MEAN CORPUSCULAR HEMOGLOBIN 27.3 pg (28.0-32.0); MEAN CORPUSCULAR VOLUME 84.3 fL (81.0-99.0); MEAN PLATELET VOLUME 7.6 fl (7.4-10.4); NEUTROPHILS % 63.7 % (40.0-76.0); PLATELET 282 x1000/uL (130-400); RED BLOOD CELL COUNT 4.11 mill/uL (4.2-5.4); RED CELL DISTRIBUTION WIDTH 14.4 % (11.6-14.6)
[2021-11-18 14:56] LABS: CHLORIDE 103 mEq/L (98-107)
[2021-11-18] MEDS ORDERED: SODIUM CHLORIDE 0.9% 500 ML IV ONE (15:30)
[2021-11-18 18:25] LABS: CLARITY URINE TURBID (CLEAR); COLOR URINE YELLOW (YELLOW); KETONES URINE NEGATIVE (NEGATIVE); LEUKOCYTE ESTERASE URINE 2+ (NEGATIVE); NITRITE URINE NEGATIVE (NEGATIVE); OCCULT BLOOD URINE 3+ (NEGATIVE); PH URINE 6.5 (4.5-8.0); PROTEIN URINE 3+ (NEGATIVE); SPECIFIC GRAVITY URINE 1.009 (1.005-1.030)
[2021-11-18] MEDS ORDERED: MAGNESIUM/ALUMINUM HYDROXIDE/SIMETHICONE 30ML UDC PO PRN (20:15)
[2021-11-18] MEDS ORDERED: ONDANSETRON HCL 4MG/2ML INJ IV PRN (20:15)
[2021-11-18] MEDS ORDERED: NA PHOS,M-B/NA PHOS,DI-BA ENEMA 118ML PR PRN (20:15)
[2021-11-18] MEDS ORDERED: GUAIFENESIN 200MG/10ML SUGAR FREE UDC PO PRN (20:15)
[2021-11-18] MEDS ORDERED: DOCUSATE SODIUM 100MG CAPSULE PO PRN (20:15)
[2021-11-18] MEDS ORDERED: MORPHINE SULFATE 2 MG/ML CPJ (NOT FOR IM USE) IV PRN (20:15)
[2021-11-18] MEDS ORDERED: DIPHENHYDRAMINE 50MG/ML VIAL IV PRN (20:15)
[2021-11-18] MEDS ORDERED: ACETAMINOPHEN 325MG TABLET PO PRN (20:15)
[2021-11-18] MEDS ORDERED: IPRATROPIUM/ALBUTEROL 0.5-3(2.5)MG/3ML NEB NEB PRN (20:15)
[2021-11-18] MEDS ORDERED: HYDROCODONE/ACETAMINOPHEN 5/325MG TABLET PO PRN (20:15)
[2021-11-18] MEDS ORDERED: NALOXONE HCL 0.4MG/ML VIAL IV PRN (20:30)
[2021-11-18] MEDS ORDERED: DEXTROSE 50% WATER 50ML SYRINGE IV PRN ×2 (20:30→22:00)
[2021-11-18 20:35] VITALS: BP 197/70
[2021-11-18] MEDS: CLONIDINE 0.1MG TABLET PO PRN (22:21)
[2021-11-18] MEDS: ENOXAPARIN 30MG/0.3ML SYR SUBCUT SCH (22:22)
[2021-11-18] MEDS: INSULIN LISPRO 100 UNITS/ML SUBCUT SCH (22:23)
[2021-11-18] MEDS: SODIUM CHLORIDE 0.45% 1,000 ML IV SCH (22:24)
[2021-11-19] VITALS: BP 152/75
[2021-11-19 04:00] VITALS: BP 173/83
[2021-11-19] MEDS: INSULIN LISPRO 100 UNITS/ML SUBCUT SCH ×4 (06:08→20:39)
[2021-11-19] MEDS: CLONIDINE 0.1MG TABLET PO PRN ×2 (06:10→20:38)
[2021-11-19 06:53] VITALS: BP 147/63
[2021-11-19 08:00] VITALS: BP 150/72
[2021-11-19] MEDS ORDERED: INSULIN LISPRO 100 UNITS/ML SUBCUT SCH (08:20)
[2021-11-19] MEDS: BLOOD SUGAR DIAGNOSTIC STRIP TEST SCH ×4 (09:00→20:39)
[2021-11-19] MEDS: ASPIRIN 81MG EC TABLET PO SCH (09:19)
[2021-11-19 10:00] VITALS: BP 150/72
[2021-11-19 12:06] LABS: T4 FREE 1.04 ng/dL (0.76-1.46)
[2021-11-19 18:27] LABS: CREATINE KINASE 36 IU/L (26-192); CREATINE KINASE MB FRACTION < 1.0 ng/mL (0.5-3.6)
[2021-11-19 20:00] VITALS: BP 168/69
[2021-11-19] MEDS: ENOXAPARIN 30MG/0.3ML SYR SUBCUT SCH (20:37)
[2021-11-19] MEDS: SODIUM CHLORIDE 0.45% 1,000 ML IV SCH (21:56)
[2021-11-20] VITALS (8 sets, daily range): BP systolic 145–186; BP diastolic 60–80
[2021-11-20] MEDS: BLOOD SUGAR DIAGNOSTIC STRIP TEST SCH ×4 (05:45→21:00)
[2021-11-20] MEDS: CLONIDINE 0.1MG TABLET PO PRN ×4 (05:46→23:29)
[2021-11-20] MEDS: INSULIN LISPRO 100 UNITS/ML SUBCUT SCH ×4 (05:47→23:54)
[2021-11-20 06:19] LABS: EOSINOPHILS % 10.3 % (0.0-5.0); HEMATOCRIT. 26.7 % (36.0-48.0); HEMOGLOBIN. 9.1 g/dL (12.0-16.0); LYMPHOCYTES % 28.8 % (20.0-50.0); MEAN CORPUSCULAR VOLUME 82.3 fL (81.0-99.0); MEAN PLATELET VOLUME 7.5 fl (7.4-10.4); MONOCYTES % 8.6 % (2.0-8.0); NEUTROPHILS % 51.3 % (40.0-76.0); PLATELET 230 x1000/uL (130-400); RED BLOOD CELL COUNT 3.25 mill/uL (4.2-5.4); RED CELL DISTRIBUTION WIDTH 14.2 % (11.6-14.6)
[2021-11-20 06:32] LABS: CHLORIDE 105 mEq/L (98-107)
[2021-11-20 06:44] LABS: CREATINE KINASE 31 IU/L (26-192); CREATINE KINASE MB FRACTION < 1.0 ng/mL (0.5-3.6)
[2021-11-20] MEDS: ASPIRIN 81MG EC TABLET PO SCH (08:29)
[2021-11-20] MEDS: HYDRALAZINE HCL 25MG TABLET PO SCH ×3 (08:30→17:17)
[2021-11-20] MEDS: SODIUM CHLORIDE 0.45% 1,000 ML IV SCH (13:14)
[2021-11-20] MEDS: ENOXAPARIN 30MG/0.3ML SYR SUBCUT SCH (23:28)
[2021-11-21] VITALS (7 sets, daily range): BP systolic 122–219; BP diastolic 78–91
[2021-11-21] MEDS: CLONIDINE 0.1MG TABLET PO PRN ×2 (06:07→13:01)
[2021-11-21] MEDS: SODIUM CHLORIDE 0.45% 1,000 ML IV SCH (06:10)
[2021-11-21] MEDS: INSULIN LISPRO 100 UNITS/ML SUBCUT SCH ×3 (07:10→17:10)
[2021-11-21] MEDS: BLOOD SUGAR DIAGNOSTIC STRIP TEST SCH ×3 (08:07→18:03)
[2021-11-21] MEDS: HYDRALAZINE HCL 25MG TABLET PO SCH (08:27)
[2021-11-21] MEDS: ASPIRIN 81MG EC TABLET PO SCH (08:28)
[2021-11-21] MEDS ORDERED: HYDRALAZINE HCL 50MG TABLET PO NR (13:45)
[2021-11-21] MEDS ORDERED: AMLODIPINE 5MG TABLET PO NR (13:45)
[2021-11-21] MEDS ORDERED: AMLODIPINE 5MG TABLET PO SCH (21:00)
[2021-11-21] MEDS ORDERED: HYDRALAZINE HCL 50MG TABLET PO SCH (21:00)
[2021-11-21] MEDS ORDERED: INSULIN GLARGINE 100 UNITS/ML SUBCUT SCH (22:00)
== END 2021-11-21 19:06 | disposition home health service (06) | DRG 640 ==
LOC: ER 12:36 → 8WST 16:24 → EDBEDREQ 16:47 → ENRESERV 18:53 → ER 20:57
PROVIDERS: ADMIT Internal Medicine; ATTEND Internal Medicine
DX: E86.0 Dehydration (principal); N17.0 Acute kidney failure with tubular necrosis; I13.0 Hypertensive heart and chronic kidney disease with heart failure and stage 1 through stage 4 chronic kidney disease, or unspecified chronic kidney disease; R07.89 Other chest pain; D64.9 Anemia, unspecified; I25.10 Atherosclerotic heart disease of native coronary artery without angina pectoris; E11.22 Type 2 diabetes mellitus with diabetic chronic kidney disease; E11.40 Type 2 diabetes mellitus with diabetic neuropathy, unspecified; E11.65 Type 2 diabetes mellitus with hyperglycemia; E78.00 Pure hypercholesterolemia, unspecified; F17.200 Nicotine dependence, unspecified, uncomplicated; I50.9 Heart failure, unspecified; Z60.2 Problems related to living alone; J44.9 Chronic obstructive pulmonary disease, unspecified; M19.90 Unspecified osteoarthritis, unspecified site; N18.9 Chronic kidney disease, unspecified; Z82.49 Family history of ischemic heart disease and other diseases of the circulatory system; Z87.01 Personal history of pneumonia (recurrent); Z88.2 Allergy status to sulfonamides; Z79.899 Other long term (current) drug therapy; Z68.24 Body mass index [BMI] 24.0-24.9, adult
CPT/HCPCS: 36415; 80048; 80053; 80061; 81003; 82550; 82553; 82962; 83036; 83880; 84439; 84443; 84484; 85025; 85379; 93306; 94640; 97162; 99285; J1200; J1650; J1815; J2270; J7040

== ENCOUNTER 2022-07-16 15:54 | Emergency (ER) | payer MEDICARE, MEDICAID ==
[~2022-07-16] VITALS: Ht 160 cm; Wt 45.0 kg
[2022-07-16] MEDS ORDERED: ONDANSETRON HCL 4MG/2ML INJ IV STA (17:25)
[2022-07-16] MEDS ORDERED: SODIUM CHLORIDE 0.9% 1,000 ML IV ONE (17:30)
[2022-07-16 18:51] LABS: BASOPHILS % 0.6 % (0.0-2.0); EOSINOPHILS % 0.3 % (0.0-5.0); HEMATOCRIT. 29.2 % (36.0-48.0); HEMOGLOBIN. 9.5 g/dL (12.0-16.0); LYMPHOCYTES % 7.3 % (20.0-50.0); MEAN CORPUSCULAR HEMOGLOBIN 28.3 pg (28.0-32.0); MEAN CORPUSCULAR VOLUME 87.2 fL (81.0-99.0); MONOCYTES % 3.9 % (2.0-8.0); NEUTROPHILS % 87.9 % (40.0-76.0); PLATELET 373 x1000/uL (130-400); RED BLOOD CELL COUNT 3.35 mill/uL (4.2-5.4)
[2022-07-16 19:02] LABS: CHLORIDE 103 mEq/L (98-107)
[2022-07-16] MEDS ORDERED: ONDA4TAB50 MT (19:21)
[2022-07-17 09:10] VITALS: BP 187/87
== END 2022-07-17 09:50 | disposition home or self-care (01) ==
LOC: ER 15:54
DX: K52.9 Noninfective gastroenteritis and colitis, unspecified (principal); D64.9 Anemia, unspecified; J45.909 Unspecified asthma, uncomplicated; J44.9 Chronic obstructive pulmonary disease, unspecified; E11.9 Type 2 diabetes mellitus without complications; E78.00 Pure hypercholesterolemia, unspecified; I10 Essential (primary) hypertension; Z88.2 Allergy status to sulfonamides; Z87.01 Personal history of pneumonia (recurrent)
CPT/HCPCS: 36415; 80053; 83605; 83690; 85025; 93005; 96361; 96374; 99285; J2405; J7030

== ENCOUNTER 2022-09-20 01:59 | Emergency (ER) | payer MEDICARE, MEDICAID ==
[~2022-09-20] VITALS: Ht 160 cm; Wt 54.0 kg
[~2022-09-20 01:59] MED LIST changes: +ONDA4TAB50 MT
[2022-09-20 08:02] VITALS: BP 130/80
== END 2022-09-20 08:06 | disposition home or self-care (01) ==
LOC: ER 01:59
DX: F32.9 Major depressive disorder, single episode, unspecified (principal); D64.9 Anemia, unspecified; J44.9 Chronic obstructive pulmonary disease, unspecified; E11.9 Type 2 diabetes mellitus without complications; E78.00 Pure hypercholesterolemia, unspecified; I10 Essential (primary) hypertension
CPT/HCPCS: 99283

== ENCOUNTER 2022-10-15 18:40 | Inpatient (IN) | payer MEDICARE, MEDICAID ==
[~2022-10-15] VITALS: Ht 162.6 cm; Wt 34.9 kg
[2022-10-15 18:45] VITALS: BP 145/63; PULSE 80; RESP 20; TEMP 97.3
[2022-10-15 20:00] VITALS: BP 145/63; PULSE 80; RESP 20; TEMP 97.3
[2022-10-15] MEDS: SODIUM CHLORIDE 0.9% 1,000 ML IV SCH (22:15)
[2022-10-15] MEDS ORDERED: FAMOTIDINE 20MG/2ML VIAL IV SCH (22:15)
[2022-10-15] MEDS ORDERED: MAGNESIUM/ALUMINUM HYDROXIDE/SIMETHICONE 30ML UDC PO PRN (23:15)
[2022-10-15] MEDS ORDERED: DEXTROSE 50% WATER 50ML SYRINGE IV PRN (23:15)
[2022-10-15] MEDS ORDERED: IPRATROPIUM/ALBUTEROL 0.5-3(2.5)MG/3ML NEB HHN PRN (23:15)
[2022-10-15] MEDS ORDERED: DIPHENHYDRAMINE 50MG CAPSULE PO PRN (23:15)
[2022-10-15] MEDS ORDERED: SODIUM CHLORIDE 0.9% 1,000 ML IV SCH (23:15)
[2022-10-15] MEDS ORDERED: ZOLPIDEM TARTRATE 5MG TABLET PO PRN (23:15)
[2022-10-15] MEDS ORDERED: HYDRALAZINE 20MG/ML VIAL IV PRN (23:15)
[2022-10-15] MEDS ORDERED: ACETAMINOPHEN 325MG TABLET PO PRN ×2 (23:15)
[2022-10-15] MEDS ORDERED: CLONIDINE 0.1MG TABLET PO PRN (23:15)
[2022-10-15] MEDS ORDERED: ONDANSETRON HCL 4MG/2ML INJ IV PRN (23:15)
[2022-10-16] MEDS: AMPICILLIN 1,000 MG in SODIUM CHLORIDE 0.9% 50 ML IV SCH ×2 (06:13→18:00)
[2022-10-16] MEDS: BLOOD SUGAR DIAGNOSTIC STRIP TEST SCH ×4 (06:13→21:25)
[2022-10-16 08:00] VITALS: BP 146/72; PULSE 85; RESP 16; TEMP 97.7
[2022-10-16] MEDS: SODIUM CHLORIDE 0.9% 1,000 ML IV SCH ×2 (08:15→18:15)
[2022-10-16] MEDS ORDERED: AMPICILLIN 1,000 MG in SODIUM CHLORIDE 0.9% 50 ML IV SCH (09:00)
[2022-10-16] MEDS: THEOPHYLLINE ANHYDROUS 80 MG/15 ML 120ML PO SCH ×2 (09:00→17:00)
[2022-10-16] MEDS ORDERED: LISINOPRIL 20MG TABLET PO SCH (09:00)
[2022-10-16] MEDS: AMLODIPINE 10MG TABLET PO SCH (09:00)
[2022-10-16] MEDS: INSULIN LISPRO 100 UNITS/ML SUBCUT SCH ×4 (09:00→21:30)
[2022-10-16] MEDS: ENOXAPARIN 30MG/0.3ML SYR SUBCUT SCH (09:00)
[2022-10-16] MEDS ORDERED: AMLODIPINE 10MG TABLET PO SCH (09:00)
[2022-10-16] MEDS: LISINOPRIL 20MG TABLET PO SCH ×2 (09:49→21:00)
[2022-10-16] MEDS: POVIDONE-IODINE 10% TOPICAL SOLN 240ML TOP SCH (11:00)
[2022-10-16] MEDS ORDERED: DIPHENHYDRAMINE 25MG CAPSULE PO PRN (11:54)
[2022-10-16] MEDS ORDERED: HYDRALAZINE 10 MG in SODIUM CHLORIDE 0.9% 49.5 ML IV PRN (12:00)
[2022-10-16 17:03] LABS: BASOPHILS % 0.6 % (0.0-2.0); EOSINOPHILS % 0.3 % (0.0-5.0); HEMOGLOBIN. 9.2 g/dL (12.0-16.0); LYMPHOCYTES % 17.9 % (20.0-50.0); MEAN CORPUSCULAR HEMOGLOBIN 28.3 pg (28.0-32.0); MEAN CORPUSCULAR VOLUME 85.9 fL (81.0-99.0); MEAN PLATELET VOLUME 7.8 fl (7.4-10.4); MONOCYTES % 4.5 % (2.0-8.0); NEUTROPHILS % 76.7 % (40.0-76.0); PLATELET 128 x1000/uL (130-400); RED BLOOD CELL COUNT 3.26 mill/uL (4.2-5.4); RED CELL DISTRIBUTION WIDTH 16.6 % (11.6-14.6)
[2022-10-16 17:13] LABS: CHLORIDE 113 mEq/L (98-107)
[2022-10-16] MEDS: IRON SUCROSE COMPLEX 100 MG in SODIUM CHLORIDE 0.9% 100 ML IV SCH (19:52)
[2022-10-16 19:56] VITALS: BP 147/67; PULSE 80; RESP 17; TEMP 98.1
[2022-10-16] MEDS: MEGESTROL ACETATE 400 MG/10 ML UDC PO SCH (21:00)
[2022-10-17] MEDS: SODIUM CHLORIDE 0.9% 1,000 ML IV SCH ×2 (05:15→14:15)
[2022-10-17] MEDS: INSULIN LISPRO 100 UNITS/ML SUBCUT SCH ×4 (06:53→20:56)
[2022-10-17] MEDS: BLOOD SUGAR DIAGNOSTIC STRIP TEST SCH ×4 (06:53→20:56)
[2022-10-17 07:50] LABS: BASOPHILS % 0.5 % (0.0-2.0); EOSINOPHILS % 1.7 % (0.0-5.0); HEMATOCRIT. 28.2 % (36.0-48.0); HEMOGLOBIN. 9.3 g/dL (12.0-16.0); LYMPHOCYTES % 23.8 % (20.0-50.0); MEAN CORPUSCULAR HEMOGLOBIN 28.3 pg (28.0-32.0); MEAN CORPUSCULAR VOLUME 85.9 fL (81.0-99.0); MEAN PLATELET VOLUME 8.1 fl (7.4-10.4); MONOCYTES % 5.3 % (2.0-8.0); NEUTROPHILS % 68.7 % (40.0-76.0); PLATELET 126 x1000/uL (130-400); RED BLOOD CELL COUNT 3.29 mill/uL (4.2-5.4); RED CELL DISTRIBUTION WIDTH 16.6 % (11.6-14.6)
[2022-10-17 08:00] VITALS: BP 126/57; PULSE 74; RESP 17; TEMP 97.4
[2022-10-17 09:00] LABS: VITAMIN B12 SERUM 1818 pg/mL (211-911)
[2022-10-17] MEDS: POVIDONE-IODINE 10% TOPICAL SOLN 240ML TOP SCH (09:00)
[2022-10-17] MEDS: AMPICILLIN 1,000 MG in SODIUM CHLORIDE 0.9% 50 ML IV SCH ×2 (09:00→18:11)
[2022-10-17] MEDS: THEOPHYLLINE ANHYDROUS 80 MG/15 ML 120ML PO SCH ×2 (09:00→17:00)
[2022-10-17] MEDS: IRON SUCROSE COMPLEX 100 MG in SODIUM CHLORIDE 0.9% 100 ML IV SCH (09:41)
[2022-10-17] MEDS: LISINOPRIL 20MG TABLET PO SCH ×2 (09:42→20:26)
[2022-10-17] MEDS: AMLODIPINE 10MG TABLET PO SCH (09:43)
[2022-10-17] MEDS: MEGESTROL ACETATE 400 MG/10 ML UDC PO SCH ×2 (09:44→17:00)
[2022-10-17] MEDS: ENOXAPARIN 30MG/0.3ML SYR SUBCUT SCH (09:44)
[2022-10-17] MEDS: FAMOTIDINE 20MG/2ML VIAL IV SCH (09:44)
[2022-10-17 19:47] VITALS: BP 121/58; PULSE 69; RESP 16; TEMP 96.9
[2022-10-18] MEDS: SODIUM CHLORIDE 0.9% 1,000 ML IV SCH ×4 (00:15→22:43)
[2022-10-18] MEDS: GUAIFENESIN 200MG/10ML SUGAR FREE UDC PO PRN (05:02)
[2022-10-18] MEDS: AMPICILLIN 1,000 MG in SODIUM CHLORIDE 0.9% 50 ML IV SCH ×2 (05:02→16:59)
[2022-10-18] MEDS: INSULIN LISPRO 100 UNITS/ML SUBCUT SCH ×4 (06:36→21:00)
[2022-10-18] MEDS: BLOOD SUGAR DIAGNOSTIC STRIP TEST SCH ×4 (06:36→21:38)
[2022-10-18 08:00] VITALS: BP 152/70; PULSE 67; RESP 18; TEMP 96.5
[2022-10-18] MEDS: IRON SUCROSE COMPLEX 100 MG in SODIUM CHLORIDE 0.9% 100 ML IV SCH (08:10)
[2022-10-18] MEDS: MEGESTROL ACETATE 400 MG/10 ML UDC PO SCH ×2 (08:18→16:55)
[2022-10-18] MEDS: LISINOPRIL 20MG TABLET PO SCH ×2 (08:19→21:38)
[2022-10-18] MEDS: THEOPHYLLINE ANHYDROUS 80 MG/15 ML 120ML PO SCH ×2 (08:19→16:55)
[2022-10-18] MEDS: ENOXAPARIN 30MG/0.3ML SYR SUBCUT SCH (08:26)
[2022-10-18] MEDS: POVIDONE-IODINE 10% TOPICAL SOLN 240ML TOP SCH (09:00)
[2022-10-18 20:00] VITALS: BP 154/74; PULSE 58; RESP 18; TEMP 97
[2022-10-19] MEDS: AMPICILLIN 1,000 MG in SODIUM CHLORIDE 0.9% 50 ML IV SCH (06:07)
[2022-10-19] MEDS: GUAIFENESIN 200MG/10ML SUGAR FREE UDC PO PRN (06:13)
[2022-10-19] MEDS: BLOOD SUGAR DIAGNOSTIC STRIP TEST SCH ×4 (06:13→21:40)
[2022-10-19] MEDS: INSULIN LISPRO 100 UNITS/ML SUBCUT SCH ×4 (06:19→21:00)
[2022-10-19 06:59] LABS: BASOPHILS % 0.7 % (0.0-2.0); EOSINOPHILS % 1.5 % (0.0-5.0); HEMATOCRIT. 26.3 % (36.0-48.0); HEMOGLOBIN. 8.6 g/dL (12.0-16.0); LYMPHOCYTES % 19.9 % (20.0-50.0); MEAN CORPUSCULAR HEMOGLOBIN 28.5 pg (28.0-32.0); MEAN CORPUSCULAR VOLUME 87.3 fL (81.0-99.0); MEAN PLATELET VOLUME 7.7 fl (7.4-10.4); MONOCYTES % 5.5 % (2.0-8.0); NEUTROPHILS % 72.4 % (40.0-76.0); PLATELET 117 x1000/uL (130-400); RED BLOOD CELL COUNT 3.01 mill/uL (4.2-5.4); RED CELL DISTRIBUTION WIDTH 16.7 % (11.6-14.6)
[2022-10-19] MEDS: SODIUM CHLORIDE 0.9% 1,000 ML IV SCH (07:08)
[2022-10-19 08:00] VITALS: BP 164/82; PULSE 61; RESP 18; TEMP 97.1
[2022-10-19] MEDS: POVIDONE-IODINE 10% TOPICAL SOLN 240ML TOP SCH (09:00)
[2022-10-19] MEDS: IRON SUCROSE COMPLEX 100 MG in SODIUM CHLORIDE 0.9% 100 ML IV SCH (09:00)
[2022-10-19] MEDS: MEGESTROL ACETATE 400 MG/10 ML UDC PO SCH ×2 (09:00→16:34)
[2022-10-19] MEDS: FAMOTIDINE 20MG/2ML VIAL IV SCH (09:00)
[2022-10-19] MEDS: ENOXAPARIN 30MG/0.3ML SYR SUBCUT SCH (09:00)
[2022-10-19] MEDS: LISINOPRIL 20MG TABLET PO SCH ×2 (09:00→21:40)
[2022-10-19] MEDS ORDERED: AMLODIPINE 5MG TABLET PO NR (11:30)
[2022-10-19] MEDS ORDERED: IPRATROPIUM/ALBUTEROL 0.5-3(2.5)MG/3ML NEB HHN PRN (11:45)
[2022-10-19] MEDS: MAGNESIUM OXIDE 400MG TABLET PO SCH (11:51)
[2022-10-19] MEDS: THEOPHYLLINE ANHYDROUS 80 MG/15 ML 120ML PO SCH (16:41)
[2022-10-19 20:00] VITALS: BP 143/70; PULSE 76; RESP 18; TEMP 97
[2022-10-20] MEDS: BLOOD SUGAR DIAGNOSTIC STRIP TEST SCH ×4 (07:28→21:08)
[2022-10-20] MEDS: INSULIN LISPRO 100 UNITS/ML SUBCUT SCH ×4 (07:28→21:40)
[2022-10-20 08:00] VITALS: BP 157/83; PULSE 71; RESP 18; TEMP 96.4
[2022-10-20] MEDS: AMLODIPINE 5MG TABLET PO SCH (09:23)
[2022-10-20] MEDS: IRON SUCROSE COMPLEX 100 MG in SODIUM CHLORIDE 0.9% 100 ML IV SCH (09:23)
[2022-10-20] MEDS: LISINOPRIL 20MG TABLET PO SCH ×2 (09:24→21:03)
[2022-10-20] MEDS: MAGNESIUM OXIDE 400MG TABLET PO SCH (09:25)
[2022-10-20] MEDS: THEOPHYLLINE ANHYDROUS 80 MG/15 ML 120ML PO SCH ×2 (09:25→17:52)
[2022-10-20] MEDS: ENOXAPARIN 30MG/0.3ML SYR SUBCUT SCH (09:26)
[2022-10-20] MEDS: MEGESTROL ACETATE 400 MG/10 ML UDC PO SCH ×2 (09:27→17:52)
[2022-10-20] MEDS: POVIDONE-IODINE 10% TOPICAL SOLN 240ML TOP SCH (09:27)
[2022-10-20] MEDS: SERTRALINE HCL 50MG TABLET PO SCH (13:10)
[2022-10-20] MEDS ORDERED: IPRATROPIUM/ALBUTEROL 0.5-3(2.5)MG/3ML NEB HHN PRN (17:30)
[2022-10-20 20:00] VITALS: BP 140/56; PULSE 82; RESP 17; TEMP 97.5
[2022-10-21] MEDS: GUAIFENESIN 200MG/10ML SUGAR FREE UDC PO PRN (03:33)
[2022-10-21] MEDS: BLOOD SUGAR DIAGNOSTIC STRIP TEST SCH ×4 (06:27→21:00)
[2022-10-21] MEDS: INSULIN LISPRO 100 UNITS/ML SUBCUT SCH ×4 (06:27→22:16)
[2022-10-21 08:00] VITALS: BP 137/65; PULSE 72; RESP 15; TEMP 97.6
[2022-10-21] MEDS: IRON SUCROSE COMPLEX 100 MG in SODIUM CHLORIDE 0.9% 100 ML IV SCH (08:53)
[2022-10-21] MEDS: THEOPHYLLINE ANHYDROUS 80 MG/15 ML 120ML PO SCH ×2 (08:54→17:01)
[2022-10-21] MEDS: FAMOTIDINE 20MG TABLET PO SCH (08:56)
[2022-10-21] MEDS: LISINOPRIL 20MG TABLET PO SCH ×2 (08:56→22:01)
[2022-10-21] MEDS: SERTRALINE HCL 50MG TABLET PO SCH (08:56)
[2022-10-21] MEDS: AMLODIPINE 5MG TABLET PO SCH (08:57)
[2022-10-21] MEDS: MAGNESIUM OXIDE 400MG TABLET PO SCH (08:57)
[2022-10-21] MEDS: ENOXAPARIN 30MG/0.3ML SYR SUBCUT SCH (08:58)
[2022-10-21] MEDS: MEGESTROL ACETATE 400 MG/10 ML UDC PO SCH ×2 (08:58→17:01)
[2022-10-21] MEDS: POVIDONE-IODINE 10% TOPICAL SOLN 240ML TOP SCH (09:39)
[2022-10-21 20:00] VITALS: BP 112/57; PULSE 82; RESP 8; TEMP 98.1
[2022-10-22] MEDS: BLOOD SUGAR DIAGNOSTIC STRIP TEST SCH ×4 (06:56→21:39)
[2022-10-22] MEDS: INSULIN LISPRO 100 UNITS/ML SUBCUT SCH ×4 (06:58→21:39)
[2022-10-22 08:00] VITALS: BP 145/63; PULSE 77; RESP 17; TEMP 96.7
[2022-10-22] MEDS: MEGESTROL ACETATE 400 MG/10 ML UDC PO SCH ×2 (09:00→17:00)
[2022-10-22] MEDS: MAGNESIUM OXIDE 400MG TABLET PO SCH (09:00)
[2022-10-22] MEDS: THEOPHYLLINE ANHYDROUS 80 MG/15 ML 120ML PO SCH ×2 (09:00→17:00)
[2022-10-22] MEDS: POVIDONE-IODINE 10% TOPICAL SOLN 240ML TOP SCH (09:00)
[2022-10-22] MEDS: IRON SUCROSE COMPLEX 100 MG in SODIUM CHLORIDE 0.9% 100 ML IV SCH (09:05)
[2022-10-22] MEDS: ENOXAPARIN 30MG/0.3ML SYR SUBCUT SCH (09:07)
[2022-10-22] MEDS: LISINOPRIL 20MG TABLET PO SCH ×2 (09:08→21:32)
[2022-10-22] MEDS: AMLODIPINE 5MG TABLET PO SCH (09:08)
[2022-10-22] MEDS: SERTRALINE HCL 50MG TABLET PO SCH (09:08)
[2022-10-22 14:03] VITALS: BP 124/62; PULSE 72; RESP 16; TEMP 97.2
[2022-10-22 15:48] LABS: BASOPHILS % 0.2 % (0.0-2.0); EOSINOPHILS % 1.3 % (0.0-5.0); LYMPHOCYTES % 17.5 % (20.0-50.0); MEAN CORPUSCULAR HEMOGLOBIN 28.2 pg (28.0-32.0); MEAN CORPUSCULAR VOLUME 89.4 fL (81.0-99.0); MEAN PLATELET VOLUME 8.9 fl (7.4-10.4); MONOCYTES % 4.5 % (2.0-8.0); NEUTROPHILS % 76.5 % (40.0-76.0); PLATELET 125 x1000/uL (130-400); RED BLOOD CELL COUNT 2.41 mill/uL (4.2-5.4); RED CELL DISTRIBUTION WIDTH 17.4 % (11.6-14.6)
[2022-10-22 15:54] LABS: PHOSPHORUS 2.5 mg/dL (2.5-4.9)
[2022-10-22 16:08] LABS: HEMATOCRIT. 21.6 % (36.0-48.0); HEMOGLOBIN. 6.8 g/dL (12.0-16.0)
[2022-10-22 19:47] VITALS: BP 121/76; PULSE 65; RESP 20; TEMP 98.4
[2022-10-23] VITALS (7 sets, daily range): BP systolic 123–155; BP diastolic 41–74; PULSE 51–78; RESP 17–18; TEMP 97.2–99
[2022-10-23] MEDS: SODIUM CHLORIDE 0.9% 1,000 ML IV SCH ×2 (06:22→10:11)
[2022-10-23] MEDS: BLOOD SUGAR DIAGNOSTIC STRIP TEST SCH ×4 (06:26→21:00)
[2022-10-23] MEDS: SERTRALINE HCL 50MG TABLET PO SCH ×2 (09:00→10:21)
[2022-10-23] MEDS: LISINOPRIL 20MG TABLET PO SCH ×3 (09:00→21:25)
[2022-10-23] MEDS: AMLODIPINE 5MG TABLET PO SCH ×2 (09:00→10:20)
[2022-10-23] MEDS: MEGESTROL ACETATE 400 MG/10 ML UDC PO SCH ×3 (09:00→16:36)
[2022-10-23] MEDS: ENOXAPARIN 30MG/0.3ML SYR SUBCUT SCH ×2 (09:00→10:21)
[2022-10-23] MEDS: THEOPHYLLINE ANHYDROUS 80 MG/15 ML 120ML PO SCH ×3 (09:00→16:36)
[2022-10-23] MEDS: POVIDONE-IODINE 10% TOPICAL SOLN 240ML TOP SCH (09:00)
[2022-10-23] MEDS: FAMOTIDINE 20MG TABLET PO SCH ×2 (09:00→10:20)
[2022-10-23] MEDS: MAGNESIUM OXIDE 400MG TABLET PO SCH (09:00)
[2022-10-23] MEDS: IRON SUCROSE COMPLEX 100 MG in SODIUM CHLORIDE 0.9% 100 ML IV SCH (10:10)
[2022-10-23] MEDS: INSULIN LISPRO 100 UNITS/ML SUBCUT SCH ×4 (12:34→21:29)
[2022-10-24] MEDS: BLOOD SUGAR DIAGNOSTIC STRIP TEST SCH ×4 (06:30→20:56)
[2022-10-24 08:00] VITALS: BP 144/70; PULSE 73; RESP 18; TEMP 97.7
[2022-10-24] MEDS: MEGESTROL ACETATE 400 MG/10 ML UDC PO SCH ×2 (08:34→17:30)
[2022-10-24] MEDS: LISINOPRIL 20MG TABLET PO SCH ×2 (08:34→21:33)
[2022-10-24] MEDS: IRON SUCROSE COMPLEX 100 MG in SODIUM CHLORIDE 0.9% 100 ML IV SCH (08:34)
[2022-10-24] MEDS: THEOPHYLLINE ANHYDROUS 80 MG/15 ML 120ML PO SCH ×2 (08:34→17:30)
[2022-10-24] MEDS: SERTRALINE HCL 50MG TABLET PO SCH (08:35)
[2022-10-24] MEDS: AMLODIPINE 5MG TABLET PO SCH (08:35)
[2022-10-24] MEDS: INSULIN LISPRO 100 UNITS/ML SUBCUT SCH ×4 (08:35→21:41)
[2022-10-24] MEDS: ENOXAPARIN 30MG/0.3ML SYR SUBCUT SCH (08:35)
[2022-10-24] MEDS: POVIDONE-IODINE 10% TOPICAL SOLN 240ML TOP SCH (08:36)
[2022-10-24] MEDS: MAGNESIUM OXIDE 400MG TABLET PO SCH (08:36)
[2022-10-24 20:00] VITALS: BP 120/68; PULSE 75; RESP 20; TEMP 97.7
[2022-10-25] MEDS: SODIUM CHLORIDE 0.9% 1,000 ML IV SCH
[2022-10-25] MEDS: INSULIN LISPRO 100 UNITS/ML SUBCUT SCH ×4 (06:03→22:40)
[2022-10-25] MEDS: BLOOD SUGAR DIAGNOSTIC STRIP TEST SCH ×4 (06:03→21:00)
[2022-10-25] MEDS: SERTRALINE HCL 50MG TABLET PO SCH (07:59)
[2022-10-25 08:00] VITALS: BP 152/71; PULSE 76; RESP 18; TEMP 98.2
[2022-10-25] MEDS: FAMOTIDINE 20MG TABLET PO SCH (08:00)
[2022-10-25] MEDS: LISINOPRIL 20MG TABLET PO SCH ×2 (08:05→22:33)
[2022-10-25] MEDS: AMLODIPINE 5MG TABLET PO SCH (08:05)
[2022-10-25] MEDS: THEOPHYLLINE ANHYDROUS 80 MG/15 ML 120ML PO SCH ×2 (08:06→16:18)
[2022-10-25] MEDS: POVIDONE-IODINE 10% TOPICAL SOLN 240ML TOP SCH (08:07)
[2022-10-25] MEDS: MEGESTROL ACETATE 400 MG/10 ML UDC PO SCH ×2 (08:07→16:18)
[2022-10-25] MEDS: MAGNESIUM OXIDE 400MG TABLET PO SCH (08:07)
[2022-10-25] MEDS: ENOXAPARIN 30MG/0.3ML SYR SUBCUT SCH (08:07)
[2022-10-25] MEDS: IRON SUCROSE COMPLEX 100 MG in SODIUM CHLORIDE 0.9% 100 ML IV SCH (08:38)
[2022-10-25 20:01] VITALS: BP 124/41; PULSE 54; RESP 20; TEMP 97.6
[2022-10-26] MEDS: SODIUM CHLORIDE 0.9% 1,000 ML IV SCH
[2022-10-26] MEDS: BLOOD SUGAR DIAGNOSTIC STRIP TEST SCH ×4 (06:30→21:40)
[2022-10-26 06:31] LABS: BASOPHILS % 0.7 % (0.0-2.0); EOSINOPHILS % 1.4 % (0.0-5.0); HEMATOCRIT. 21.7 % (36.0-48.0); HEMOGLOBIN. 7.3 g/dL (12.0-16.0); LYMPHOCYTES % 21.7 % (20.0-50.0); MEAN CORPUSCULAR HEMOGLOBIN 28.7 pg (28.0-32.0); MEAN CORPUSCULAR VOLUME 84.7 fL (81.0-99.0); MEAN PLATELET VOLUME 8.5 fl (7.4-10.4); MONOCYTES % 7.8 % (2.0-8.0); NEUTROPHILS % 68.4 % (40.0-76.0); PLATELET 187 x1000/uL (130-400); RED BLOOD CELL COUNT 2.56 mill/uL (4.2-5.4); RED CELL DISTRIBUTION WIDTH 16.6 % (11.6-14.6)
[2022-10-26] MEDS: INSULIN LISPRO 100 UNITS/ML SUBCUT SCH ×4 (07:51→22:51)
[2022-10-26 08:00] VITALS: BP 162/73; PULSE 79; RESP 16; TEMP 97.8
[2022-10-26] MEDS: MEGESTROL ACETATE 400 MG/10 ML UDC PO SCH ×2 (09:00→17:33)
[2022-10-26] MEDS: POVIDONE-IODINE 10% TOPICAL SOLN 240ML TOP SCH (09:00)
[2022-10-26] MEDS: THEOPHYLLINE ANHYDROUS 80 MG/15 ML 120ML PO SCH ×2 (09:00→17:33)
[2022-10-26] MEDS: ENOXAPARIN 30MG/0.3ML SYR SUBCUT SCH (10:14)
[2022-10-26] MEDS: SERTRALINE HCL 50MG TABLET PO SCH (10:15)
[2022-10-26] MEDS: LISINOPRIL 20MG TABLET PO SCH ×2 (10:15→22:36)
[2022-10-26] MEDS: MAGNESIUM OXIDE 400MG TABLET PO SCH (10:15)
[2022-10-26] MEDS: AMLODIPINE 5MG TABLET PO SCH (10:16)
[2022-10-26 20:00] VITALS: BP 133/71; PULSE 70; RESP 20; TEMP 97.1
[2022-10-27] VITALS (8 sets, daily range): BP systolic 120–134; BP diastolic 51–68; PULSE 78–88; RESP 19–23; TEMP 97.4–97.9
[2022-10-27] MEDS: SODIUM CHLORIDE 0.9% 1,000 ML IV SCH
[2022-10-27] MEDS: INSULIN LISPRO 100 UNITS/ML SUBCUT SCH ×5 (06:30→22:40)
[2022-10-27] MEDS: BLOOD SUGAR DIAGNOSTIC STRIP TEST SCH ×4 (06:46→21:00)
[2022-10-27] MEDS: MAGNESIUM OXIDE 400MG TABLET PO SCH (09:00)
[2022-10-27] MEDS: THEOPHYLLINE ANHYDROUS 80 MG/15 ML 120ML PO SCH ×2 (09:00→17:00)
[2022-10-27] MEDS: POVIDONE-IODINE 10% TOPICAL SOLN 240ML TOP SCH (09:00)
[2022-10-27] MEDS: ENOXAPARIN 30MG/0.3ML SYR SUBCUT SCH (09:00)
[2022-10-27] MEDS: FAMOTIDINE 20MG TABLET PO SCH (11:45)
[2022-10-27] MEDS: SERTRALINE HCL 50MG TABLET PO SCH (11:46)
[2022-10-27] MEDS: LISINOPRIL 20MG TABLET PO SCH ×2 (11:46→21:44)
[2022-10-27] MEDS: AMLODIPINE 5MG TABLET PO SCH (11:46)
[2022-10-27] MEDS: MEGESTROL ACETATE 400 MG/10 ML UDC PO SCH ×2 (12:28→16:25)
[2022-10-27] MEDS: SODIUM BICARBONATE 650 MG TABLET PO SCH (21:44)
[2022-10-28] VITALS (13 sets, daily range): BP systolic 120–161; BP diastolic 47–72; PULSE 73–85; RESP 2–20; TEMP 97.5–97.8
[2022-10-28] MEDS: BLOOD SUGAR DIAGNOSTIC STRIP TEST SCH ×4 (06:45→21:00)
[2022-10-28 08:50] LABS: BG BASE EXCESS -7.8 mmol/L (-2.0-2.0); BG CARBOXYHEMOGLOBIN 0.3 % (0.5-1.5); BG DEOXYHEMOGLOBIN 3.3 % (0.0-5.0); BG FRACTION INSPIRED OXYGEN 21; BG HCO3 ACT 16.9 mmol/L (22.0-26.0); BG METHEMOGLOBIN 0.3 % (0.0-1.5); BG OXYGEN SATURATION 96.7 % (92.0-98.5); BG OXYHEMOGLOBIN 96.1 % (94.0-97.0); BG PCO2 30.8 mmHg (35.0-45.0); BG PH 7.356 (7.350-7.450); BG PO2 90.1 mmHg (75.0-100.0); BG SAMPLE SITE RIGHT BRACHIAL; BG TOTAL HEMOGLOBIN 7.9 g/dL (12.0-18.0); BG VENT MODE ROOM AIR
[2022-10-28] MEDS: INSULIN LISPRO 100 UNITS/ML SUBCUT SCH ×4 (09:00→21:32)
[2022-10-28] MEDS: POVIDONE-IODINE 10% TOPICAL SOLN 240ML TOP SCH (09:00)
[2022-10-28] MEDS: ENOXAPARIN 30MG/0.3ML SYR SUBCUT SCH (09:00)
[2022-10-28] MEDS: SERTRALINE HCL 50MG TABLET PO SCH (09:54)
[2022-10-28] MEDS: SODIUM BICARBONATE 650 MG TABLET PO SCH ×3 (09:55→18:52)
[2022-10-28] MEDS: AMLODIPINE 5MG TABLET PO SCH ×2 (09:55→18:56)
[2022-10-28] MEDS: MAGNESIUM OXIDE 400MG TABLET PO SCH (09:56)
[2022-10-28] MEDS: LISINOPRIL 20MG TABLET PO SCH ×2 (09:57→21:29)
[2022-10-28] MEDS: MEGESTROL ACETATE 400 MG/10 ML UDC PO SCH ×2 (09:57→17:00)
[2022-10-28] MEDS: THEOPHYLLINE ANHYDROUS 80 MG/15 ML 120ML PO SCH ×2 (09:58→18:52)
[2022-10-28] MEDS ORDERED: CEFAZOLIN 1000MG PREMIX 50 ML IV NR (12:45)
[2022-10-28 12:59] LABS: HEPATITIS B SURFACE ANTIGEN NEGATIVE
[2022-10-28] MEDS: HYDRALAZINE HCL 50MG TABLET PO SCH ×2 (14:00→21:29)
[2022-10-28] MEDS ORDERED: FENTANYL CITRATE/PF 50MCG/ML 2ML VIAL IV NR (14:15)
[2022-10-28] MEDS ORDERED: FENTANYL CITRATE/PF 50MCG/ML 2ML VIAL IV ONE (14:15)
[2022-10-28 20:51] LABS: BASOPHILS % 0.8 % (0.0-2.0); EOSINOPHILS % 1.4 % (0.0-5.0); HEMATOCRIT. 23.1 % (36.0-48.0); HEMOGLOBIN. 7.9 g/dL (12.0-16.0); MEAN CORPUSCULAR HEMOGLOBIN 29.3 pg (28.0-32.0); MEAN CORPUSCULAR VOLUME 86.1 fL (81.0-99.0); MEAN PLATELET VOLUME 8.3 fl (7.4-10.4); MONOCYTES % 5.6 % (2.0-8.0); NEUTROPHILS % 82.2 % (40.0-76.0); PLATELET 231 x1000/uL (130-400); RED BLOOD CELL COUNT 2.69 mill/uL (4.2-5.4); RED CELL DISTRIBUTION WIDTH 16.9 % (11.6-14.6)
[2022-10-28 20:57] LABS: CHLORIDE 113 mEq/L (98-107)
[2022-10-29] VITALS (7 sets, daily range): BP systolic 96–154; BP diastolic 54–87; PULSE 78–88; RESP 15–18; TEMP 97.9–98.8
[2022-10-29] MEDS: BLOOD SUGAR DIAGNOSTIC STRIP TEST SCH ×4 (06:30→20:36)
[2022-10-29] MEDS: HYDRALAZINE HCL 50MG TABLET PO SCH ×3 (07:06→21:30)
[2022-10-29] MEDS: INSULIN LISPRO 100 UNITS/ML SUBCUT SCH ×4 (07:10→20:50)
[2022-10-29 08:43] LABS: BASOPHILS % 0.7 % (0.0-2.0); EOSINOPHILS % 1.2 % (0.0-5.0); HEMATOCRIT. 29.3 % (36.0-48.0); HEMOGLOBIN. 9.3 g/dL (12.0-16.0); LYMPHOCYTES % 21.7 % (20.0-50.0); MEAN CORPUSCULAR HEMOGLOBIN 28.8 pg (28.0-32.0); MEAN PLATELET VOLUME 8.3 fl (7.4-10.4); MONOCYTES % 8.1 % (2.0-8.0); NEUTROPHILS % 68.3 % (40.0-76.0); PLATELET 216 x1000/uL (130-400); RED BLOOD CELL COUNT 3.22 mill/uL (4.2-5.4); RED CELL DISTRIBUTION WIDTH 17.8 % (11.6-14.6)
[2022-10-29] MEDS: SODIUM BICARBONATE 650 MG TABLET PO SCH ×3 (09:44→17:08)
[2022-10-29] MEDS: FAMOTIDINE 20MG TABLET PO SCH (09:44)
[2022-10-29] MEDS: MEGESTROL ACETATE 400 MG/10 ML UDC PO SCH ×2 (09:44→17:08)
[2022-10-29] MEDS: SERTRALINE HCL 50MG TABLET PO SCH (09:45)
[2022-10-29] MEDS: AMLODIPINE 5MG TABLET PO SCH ×2 (09:45→17:00)
[2022-10-29] MEDS: MAGNESIUM OXIDE 400MG TABLET PO SCH (09:45)
[2022-10-29] MEDS: LISINOPRIL 20MG TABLET PO SCH ×2 (09:45→20:33)
[2022-10-29] MEDS: THEOPHYLLINE ANHYDROUS 80 MG/15 ML 120ML PO SCH ×2 (09:46→17:09)
[2022-10-29] MEDS: POVIDONE-IODINE 10% TOPICAL SOLN 240ML TOP SCH (09:46)
[2022-10-29] MEDS: GUAIFENESIN 200MG/10ML SUGAR FREE UDC PO PRN (20:33)
[2022-10-30 00:20] VITALS: BP 134/69; PULSE 88; RESP 16
[2022-10-30 00:50] VITALS: BP 107/44; PULSE 80; RESP 17
[2022-10-30 01:20] VITALS: BP 103/48; PULSE 70
[2022-10-30 01:25] VITALS: BP 137/71; PULSE 88; RESP 17; TEMP 97.8
[2022-10-30] MEDS: HYDRALAZINE HCL 50MG TABLET PO SCH ×2 (05:10→13:45)
[2022-10-30] MEDS: BLOOD SUGAR DIAGNOSTIC STRIP TEST SCH ×2 (06:33→11:15)
[2022-10-30] MEDS: INSULIN LISPRO 100 UNITS/ML SUBCUT SCH ×2 (06:36→13:52)
[2022-10-30 08:00] VITALS: BP 138/63; PULSE 84; RESP 18; TEMP 98.1
[2022-10-30] MEDS: THEOPHYLLINE ANHYDROUS 80 MG/15 ML 120ML PO SCH (09:00)
[2022-10-30] MEDS: MEGESTROL ACETATE 400 MG/10 ML UDC PO SCH (09:00)
[2022-10-30] MEDS: POVIDONE-IODINE 10% TOPICAL SOLN 240ML TOP SCH (09:00)
[2022-10-30] MEDS: MAGNESIUM OXIDE 400MG TABLET PO SCH (09:48)
[2022-10-30] MEDS: SODIUM BICARBONATE 650 MG TABLET PO SCH ×2 (09:48→13:44)
[2022-10-30] MEDS: AMLODIPINE 5MG TABLET PO SCH (09:49)
[2022-10-30] MEDS: SERTRALINE HCL 50MG TABLET PO SCH (09:49)
[2022-10-30] MEDS: LISINOPRIL 20MG TABLET PO SCH (09:49)
[2022-10-30 10:59] VITALS: BP 138/63; PULSE 84; TEMP 98.1; O2SAT 97
== END 2022-10-30 16:02 | disposition home health service (06) | DRG 91 ==
PROVIDERS: ADMIT Psychiatry & Neurology Neurology; ATTEND Internal Medicine
PROC: 4A00X4Z Measurement of Central Nervous Electrical Activity, External Approach (ICD-10-PCS; 2022-10-20)
PROC: 30233N1 Transfusion of Nonautologous Red Blood Cells into Peripheral Vein, Percutaneous Approach (ICD-10-PCS; principal; 2022-10-23)
PROC: 0JH63XZ Insertion of Tunneled Vascular Access Device into Chest Subcutaneous Tissue and Fascia, Percutaneous Approach (ICD-10-PCS; 2022-10-28)
PROC: 02HV33Z Insertion of Infusion Device into Superior Vena Cava, Percutaneous Approach (ICD-10-PCS; 2022-10-28)
PROC: B5181ZA Fluoroscopy of Superior Vena Cava using Low Osmolar Contrast, Guidance (ICD-10-PCS; 2022-10-28)
PROC: B548ZZA Ultrasonography of Superior Vena Cava, Guidance (ICD-10-PCS; 2022-10-28)
PROC: 02PYX3Z Removal of Infusion Device from Great Vessel, External Approach (ICD-10-PCS; 2022-10-28)
DX: G92.8 Other toxic encephalopathy (principal); A41.9 Sepsis, unspecified organism; E43 Unspecified severe protein-calorie malnutrition; N18.6 End stage renal disease; N30.00 Acute cystitis without hematuria; N17.9 Acute kidney failure, unspecified; E87.20 Acidosis, unspecified; F03.93 Unspecified dementia, unspecified severity, with mood disturbance; I12.0 Hypertensive chronic kidney disease with stage 5 chronic kidney disease or end stage renal disease; J96.10 Chronic respiratory failure, unspecified whether with hypoxia or hypercapnia; Z68.1 Body mass index [BMI] 19.9 or less, adult; D50.9 Iron deficiency anemia, unspecified; D63.8 Anemia in other chronic diseases classified elsewhere; D69.6 Thrombocytopenia, unspecified; E11.43 Type 2 diabetes mellitus with diabetic autonomic (poly)neuropathy; E11.22 Type 2 diabetes mellitus with diabetic chronic kidney disease; E11.51 Type 2 diabetes mellitus with diabetic peripheral angiopathy without gangrene; E83.42 Hypomagnesemia; E86.9 Volume depletion, unspecified; F17.210 Nicotine dependence, cigarettes, uncomplicated; N18.9 Chronic kidney disease, unspecified; R13.10 Dysphagia, unspecified; R62.7 Adult failure to thrive; D50.0 Iron deficiency anemia secondary to blood loss (chronic); I44.0 Atrioventricular block, first degree; K21.9 Gastro-esophageal reflux disease without esophagitis; Z20.822 Contact with and (suspected) exposure to COVID-19; J44.9 Chronic obstructive pulmonary disease, unspecified; K31.84 Gastroparesis; R00.1 Bradycardia, unspecified; R53.81 Other malaise; R53.1 Weakness; K57.90 Diverticulosis of intestine, part unspecified, without perforation or abscess without bleeding; Z63.4 Disappearance and death of family member; Z79.4 Long term (current) use of insulin; Z88.2 Allergy status to sulfonamides; Z91.81 History of falling; Z79.899 Other long term (current) drug therapy
CPT/HCPCS: 36415; 36558; 36589; 36600; 71046; 76770; 76937; 77001; 80048; 80053; 82375; 82607; 82805; 82962; 83970; 84100; 84443; 85014; 85018; 85025; 86705; 86706; 86709; 86803; 86850; 86900; 86920; 87340; 87426; 90935; 92523; 92610; 93005; 93306; 93970; 95816; 97110; 97162; 97166; 97530; 97535; 97542; 99152; 99153; A4565; C1750; C1769; J0290; J0690; J1650; J1815; J3010; J3490; J7030; J7050; P9016; A5200; G0500

== ENCOUNTER 2022-11-26 14:19 | Emergency (ER) | payer MEDICARE, MEDICAID ==
[~2022-11-26] VITALS: Ht 162.6 cm; Wt 40.0 kg
[~2022-11-26 14:19] MED LIST changes: -GLIP10TA10 PO; -NAPR-677 MT
[2022-11-26 14:24] VITALS: O2SAT 97
[2022-11-26 16:29] LABS: BASOPHILS % 1.4 % (0.0-2.0); HEMATOCRIT. 28.8 % (36.0-48.0); HEMOGLOBIN. 9.5 g/dL (12.0-16.0); LYMPHOCYTES % 28.3 % (20.0-50.0); MEAN CORPUSCULAR VOLUME 87.2 fL (81.0-99.0); MONOCYTES % 11.8 % (2.0-8.0); NEUTROPHILS % 54.5 % (40.0-76.0); PLATELET 296 x1000/uL (130-400)
[2022-11-26 16:34] LABS: CHLORIDE 100 mEq/L (98-107)
[2022-11-26] MEDS ORDERED: POTASSIUM CHLORIDE 20MEQ/PACKET PO NR (17:15)
[2022-11-27 01:00] VITALS: BP 157/59; PULSE 67; RESP 16; TEMP 98.4
== END 2022-11-27 01:25 | disposition home or self-care (01) ==
LOC: ER 14:19
DX: R41.82 Altered mental status, unspecified (principal); I12.0 Hypertensive chronic kidney disease with stage 5 chronic kidney disease or end stage renal disease; E11.22 Type 2 diabetes mellitus with diabetic chronic kidney disease; N18.6 End stage renal disease; Z99.2 Dependence on renal dialysis; J44.9 Chronic obstructive pulmonary disease, unspecified; D64.9 Anemia, unspecified; E78.00 Pure hypercholesterolemia, unspecified; E87.6 Hypokalemia; F17.210 Nicotine dependence, cigarettes, uncomplicated; D63.1 Anemia in chronic kidney disease; Z87.01 Personal history of pneumonia (recurrent)
CPT/HCPCS: 36415; 71045; 80053; 85025; 93005; 99285

== ENCOUNTER 2022-12-10 15:40 | Inpatient (IN) | payer MEDICARE, MEDICAID ==
[~2022-12-10] VITALS: Ht 162.6 cm; Wt 47.6 kg
[2022-12-10] MEDS: HYDRALAZINE HCL 25MG TABLET PO SCH (05:00)
[2022-12-10 17:16] LABS: HEMATOCRIT. 26.6 % (36.0-48.0); HEMOGLOBIN. 8.8 g/dL (12.0-16.0); LYMPHOCYTES % 21.5 % (20.0-50.0); MEAN CORPUSCULAR HEMOGLOBIN 28.5 pg (28.0-32.0); MEAN CORPUSCULAR VOLUME 86.4 fL (81.0-99.0); MEAN PLATELET VOLUME 8.1 fl (7.4-10.4); MONOCYTES % 8.2 % (2.0-8.0); NEUTROPHILS % 66.3 % (40.0-76.0); PLATELET 77 x1000/uL (130-400); RED BLOOD CELL COUNT 3.08 mill/uL (4.2-5.4); RED CELL DISTRIBUTION WIDTH 16.5 % (11.6-14.6)
[2022-12-10 17:27] LABS: CHLORIDE 101 mEq/L (98-107)
[2022-12-10 17:29] LABS: INR 1.1; PROTHROMBIN TIME 11.6 sec (9.6-11.0)
[2022-12-10] MEDS ORDERED: VANCOMYCIN 1G PREMIX 200 ML IV ONE (18:15)
[2022-12-10] MEDS ORDERED: PIPERACILLIN/TAZ 3.375G PREMIX 50 ML IV ONE (18:15)
[2022-12-10] MEDS ORDERED: POTASSIUM CHLORIDE 20MEQ/PACKET PO NR (18:30)
[2022-12-10] MEDS ORDERED: ONDANSETRON HCL 4MG/2ML INJ IV PRN (19:15)
[2022-12-10] MEDS ORDERED: ACETAMINOPHEN 325MG TABLET PO PRN ×2 (19:15)
[2022-12-10] MEDS ORDERED: GUAIFENESIN 200MG/10ML SUGAR FREE UDC PO PRN (19:15)
[2022-12-10] MEDS ORDERED: DIPHENHYDRAMINE 50MG/ML VIAL IV PRN (19:15)
[2022-12-10] MEDS ORDERED: POTASSIUM CHLORIDE 20MEQ TABLET SR PO NR (20:00)
[2022-12-10] MEDS ORDERED: ZOLPIDEM TARTRATE 5MG TABLET PO PRN (21:00)
[2022-12-10] MEDS: AMLODIPINE 5MG TABLET PO SCH (21:00)
[2022-12-10] MEDS: SODIUM CHLORIDE 0.9% INJ 3ML FLUSH IVF SCH (22:00)
[2022-12-11] MEDS ORDERED: VANCOMYCIN 1G PREMIX 200 ML IV NR (03:00)
[2022-12-11] MEDS: BUDESONIDE 0.5MG/2ML NEB HHN SCH (08:15)
[2022-12-11] MEDS ORDERED: THEOPHYLLINE ANHYDROUS 80 MG/15 ML 120ML PO SCH (09:00)
[2022-12-11] MEDS: SERTRALINE HCL 50MG TABLET PO SCH (10:34)
[2022-12-11] MEDS: AMLODIPINE 5MG TABLET PO SCH ×2 (10:34→22:04)
[2022-12-11 10:42] VITALS: BP 174/71; PULSE 66; RESP 16; TEMP 96.8
[2022-12-11 10:54] VITALS: BP 174/71; PULSE 63; RESP 16; TEMP 96.8
[2022-12-11 12:00] VITALS: BP_SYST 115; BP_SYST 191; BP_DIAS 59; BP_DIAS 87; PULSE 69; RESP 16; TEMP 96.9
[2022-12-11] MEDS: THEOPHYLLINE ANHYDROUS 80 MG/15 ML 120ML PO SCH ×2 (12:37→21:00)
[2022-12-11] MEDS: HYDRALAZINE HCL 25MG TABLET PO SCH ×2 (14:21→22:03)
[2022-12-11] MEDS: SODIUM CHLORIDE 0.9% INJ 3ML FLUSH IVF SCH ×2 (14:29→22:04)
[2022-12-11 16:00] VITALS: BP 164/68; PULSE 70; RESP 17; TEMP 96.9
[2022-12-11 16:40] LABS: BASOPHILS % 1.9 % (0.0-2.0); EOSINOPHILS % 4.1 % (0.0-5.0); HEMATOCRIT. 36.7 % (36.0-48.0); HEMOGLOBIN. 11.9 g/dL (12.0-16.0); LYMPHOCYTES % 26.1 % (20.0-50.0); MEAN CORPUSCULAR HEMOGLOBIN 28.5 pg (28.0-32.0); MEAN CORPUSCULAR VOLUME 87.5 fL (81.0-99.0); MEAN PLATELET VOLUME 8.2 fl (7.4-10.4); NEUTROPHILS % 60.9 % (40.0-76.0); PLATELET 102 x1000/uL (130-400); RED BLOOD CELL COUNT 4.19 mill/uL (4.2-5.4); RED CELL DISTRIBUTION WIDTH 16.6 % (11.6-14.6)
[2022-12-11 16:53] LABS: PHOSPHORUS 2.5 mg/dL (2.5-4.9)
[2022-12-11] MEDS: CLONIDINE 0.1MG TABLET PO PRN (17:19)
[2022-12-11 20:00] VITALS: BP 166/59; PULSE 70; RESP 18; TEMP 97.8
[2022-12-12] VITALS (8 sets, daily range): BP systolic 120–150; BP diastolic 52–66; PULSE 61–75; RESP 18–20; TEMP 97.2–98.8; O2SAT 89–99
[2022-12-12] MEDS: BUDESONIDE 0.5MG/2ML NEB HHN SCH ×4 (00:05→22:16)
[2022-12-12] MEDS: HYDRALAZINE HCL 25MG TABLET PO SCH ×3 (06:00→21:01)
[2022-12-12] MEDS: SODIUM CHLORIDE 0.9% INJ 3ML FLUSH IVF SCH ×3 (06:51→22:00)
[2022-12-12] MEDS: THEOPHYLLINE ANHYDROUS 80 MG/15 ML 120ML PO SCH (09:14)
[2022-12-12] MEDS: AMLODIPINE 5MG TABLET PO SCH ×2 (09:15→21:00)
[2022-12-12] MEDS: SERTRALINE HCL 50MG TABLET PO SCH (09:15)
[2022-12-12] MEDS: IPRATROPIUM/ALBUTEROL 0.5-3(2.5)MG/3ML NEB HHN PRN (15:15)
[2022-12-13] VITALS (14 sets, daily range): BP systolic 115–155; BP diastolic 57–80; PULSE 61–88; RESP 16–22; TEMP 96–98
[2022-12-13] MEDS: SODIUM CHLORIDE 0.9% INJ 3ML FLUSH IVF SCH ×3 (06:00→22:05)
[2022-12-13] MEDS: HYDRALAZINE HCL 25MG TABLET PO SCH ×3 (07:17→22:04)
[2022-12-13] MEDS: IPRATROPIUM/ALBUTEROL 0.5-3(2.5)MG/3ML NEB HHN PRN (09:00)
[2022-12-13] MEDS: BUDESONIDE 0.5MG/2ML NEB HHN SCH ×2 (09:00→21:00)
[2022-12-13] MEDS: SERTRALINE HCL 50MG TABLET PO SCH (09:17)
[2022-12-13] MEDS: AMLODIPINE 5MG TABLET PO SCH ×2 (09:17→22:04)
[2022-12-14] VITALS (7 sets, daily range): BP systolic 118–170; BP diastolic 61–88; PULSE 67–89; RESP 18–22; TEMP 96–98.6; O2SAT 97–98
[2022-12-14] MEDS: SODIUM CHLORIDE 0.9% INJ 3ML FLUSH IVF SCH ×2 (06:47→13:18)
[2022-12-14] MEDS: HYDRALAZINE HCL 25MG TABLET PO SCH ×2 (06:47→13:19)
[2022-12-14] MEDS: SERTRALINE HCL 50MG TABLET PO SCH (08:59)
[2022-12-14] MEDS: AMLODIPINE 5MG TABLET PO SCH (09:00)
[2022-12-14] MEDS: BUDESONIDE 0.5MG/2ML NEB HHN SCH (09:18)
[2022-12-14] MEDS: IPRATROPIUM/ALBUTEROL 0.5-3(2.5)MG/3ML NEB HHN PRN (09:19)
[2022-12-14] MEDS: CLONIDINE 0.1MG TABLET PO PRN (14:24)
[2022-12-14 18:15] LABS: HEPATITIS B SURFACE ANTIGEN NEGATIVE
== END 2022-12-14 16:00 | disposition home health service (06) | DRG 640 ==
LOC: ER 15:40 → MICUSO 18:34 → EDBEDREQ 18:41 → EDBEDREQTM 18:41 → 8WST 12-11 09:55
PROVIDERS: ADMIT Internal Medicine; ATTEND Internal Medicine
PROC: 5A1D70Z Performance of Urinary Filtration, Intermittent, Less than 6 Hours Per Day (ICD-10-PCS; principal; 2022-12-13)
DX: E87.6 Hypokalemia (principal); E43 Unspecified severe protein-calorie malnutrition; N18.6 End stage renal disease; G93.41 Metabolic encephalopathy; I12.0 Hypertensive chronic kidney disease with stage 5 chronic kidney disease or end stage renal disease; Z68.1 Body mass index [BMI] 19.9 or less, adult; E11.22 Type 2 diabetes mellitus with diabetic chronic kidney disease; J44.9 Chronic obstructive pulmonary disease, unspecified; D63.8 Anemia in other chronic diseases classified elsewhere; E78.00 Pure hypercholesterolemia, unspecified; E11.65 Type 2 diabetes mellitus with hyperglycemia; F41.0 Panic disorder [episodic paroxysmal anxiety]; E87.20 Acidosis, unspecified; E11.51 Type 2 diabetes mellitus with diabetic peripheral angiopathy without gangrene; F03.90 Unspecified dementia, unspecified severity, without behavioral disturbance, psychotic disturbance, mood disturbance, and anxiety; F17.200 Nicotine dependence, unspecified, uncomplicated; R13.10 Dysphagia, unspecified; Z88.2 Allergy status to sulfonamides; Z99.2 Dependence on renal dialysis; Z82.49 Family history of ischemic heart disease and other diseases of the circulatory system; Z87.01 Personal history of pneumonia (recurrent); Z87.440 Personal history of urinary (tract) infections; Z79.899 Other long term (current) drug therapy
CPT/HCPCS: 36415; 71045; 80048; 80053; 83605; 83735; 84100; 84145; 84484; 85025; 86705; 86709; 86803; 87340; 93005; 94640; 97166; 99291; J2543; J3370; J7626; A4315

== ENCOUNTER 2024-01-10 08:01 | Inpatient (IN) | payer MEDICARE, MEDICAID ==
[~2024-01-10] VITALS: Ht 167.6 cm; Wt 40.0 kg
[~2024-01-10 08:01] MED LIST changes: -ALBU18HF2 IH; -AMLO10TA80 MT; +AMLO5TAB88 PO; -ATOR20TA65 PO; -BESI5DRO EACHEYE; -BROM3DRO EACHEYE; +FAMO20TA8 PO; -FERR325T6 PO; +LISI10TA26 MT; -LISI20TA31 MT; -ONDA4TAB50 MT; -PANT40TA51 PO; +PRED5TAB PO; +QUET50TA23 PO
[2024-01-10 09:36] LABS: BASOPHILS % 1.8 % (0.0-2.0); HEMATOCRIT. 32.6 % (36.0-48.0); HEMOGLOBIN. 10.7 g/dL (12.0-16.0); LYMPHOCYTES % 14.4 % (20.0-50.0); MEAN CORPUSCULAR HGB CONC 32.9 g/dL (31.0-37.0); MEAN CORPUSCULAR VOLUME 94.1 fL (81.0-99.0); MEAN PLATELET VOLUME 7.2 fl (7.4-10.4); MONOCYTES % 7.7 % (2.0-8.0); NEUTROPHILS % 72.1 % (40.0-76.0); PLATELET 272 x1000/uL (130-400); RED BLOOD CELL COUNT 3.46 mill/uL (4.2-5.4); RED CELL DISTRIBUTION WIDTH 15.9 % (11.6-14.6); WHITE BLOOD COUNT 5.4 x1000/uL (4.5-11.0)
[2024-01-10 09:41] LABS: CHLORIDE 103 mEq/L (98-107); POTASSIUM 4.7 mEq/L (3.5-5.1); SODIUM 137 mEq/L (136-145)
[2024-01-10 09:42] LABS: CALCIUM 9.1 mg/dL (8.7-10.4); CARBON DIOXIDE 32 mEq/L (21-32)
[2024-01-10 09:46] LABS: PROTHROMBIN TIME 11.1 sec (9.6-11.0)
[2024-01-10 09:47] LABS: GLUCOSE 88 mg/dL (70-105); UREA NITROGEN BLOOD 14 mg/dL (9-23)
[2024-01-10 09:48] LABS: TROPONIN I HIGH SENSITIVITY 19 ng/L (3.0-34)
[2024-01-10] MEDS: LABETALOL 5MG/ML 4ML INJ IV ONE (09:48)
[2024-01-10] MEDS: HYDRALAZINE 20MG/ML VIAL IV PRN (12:04)
[2024-01-10] MEDS ORDERED: ACETAMINOPHEN 325MG TABLET PO PRN ×2 (14:30)
[2024-01-10] MEDS ORDERED: DIPHENHYDRAMINE 50MG/ML VIAL IV PRN (14:30)
[2024-01-10] MEDS ORDERED: ZOLPIDEM TARTRATE 5MG TABLET PO PRN (14:30)
[2024-01-10] MEDS ORDERED: ONDANSETRON HCL 4MG/2ML INJ IV PRN (14:30)
[2024-01-10] MEDS ORDERED: MAGNESIUM/ALUMINUM HYDROXIDE/SIMETHICONE 30ML UDC PO PRN (14:30)
[2024-01-10] MEDS: BUDESONIDE 0.5MG/2ML NEB HHN SCH ×2 (15:48→20:20)
[2024-01-10 18:28] VITALS: BP 177/76; PULSE 79; RESP 20; TEMP 36.89184; O2SAT 100
[2024-01-10 19:53] VITALS: BP 177/76; PULSE 80; RESP 30; TEMP 36.9184
[2024-01-10 20:00] VITALS: BP 160/101; PULSE 79; RESP 18; TEMP 36.89184; O2SAT 95
[2024-01-10 20:20] VITALS: PULSE 78; RESP 18; O2SAT 97
[2024-01-10] MEDS: HYDRALAZINE HCL 25MG TABLET PO SCH (21:45)
[2024-01-10] MEDS: LISINOPRIL 10MG TABLET PO SCH (21:46)
[2024-01-10] MEDS: SODIUM CHLORIDE 0.9% 3ML FLUSH IVF SCH (21:46)
[2024-01-11] VITALS (13 sets, daily range): BP systolic 129–206; BP diastolic 70–89; PULSE 69–84; RESP 13–24; TEMP 36.114–37.11408; O2SAT 94–98
[2024-01-11] MEDS: FOLIC ACID/VITAMIN B COMP W-C TABLET PO SCH (09:47)
[2024-01-11] MEDS: PREDNISONE 5MG TABLET PO SCH (09:48)
[2024-01-11 10:20] LABS: BASOPHILS % 2.6 % (0.0-2.0); EOSINOPHILS % 3.1 % (0.0-5.0); HEMATOCRIT. 33.4 % (36.0-48.0); HEMOGLOBIN. 10.8 g/dL (12.0-16.0); MEAN CORPUSCULAR HEMOGLOBIN 30.7 pg (28.0-32.0); MEAN CORPUSCULAR HGB CONC 32.4 g/dL (31.0-37.0); MEAN CORPUSCULAR VOLUME 94.9 fL (81.0-99.0); MONOCYTES % 8.1 % (2.0-8.0); NEUTROPHILS % 70.2 % (40.0-76.0); RED BLOOD CELL COUNT 3.52 mill/uL (4.2-5.4); RED CELL DISTRIBUTION WIDTH 16.5 % (11.6-14.6)
[2024-01-11 10:39] LABS: DIFFERENTIAL COMMENT 1
[2024-01-11 10:40] LABS: POTASSIUM 5.3 mEq/L (3.5-5.1)
[2024-01-11 10:41] LABS: CALCIUM 9.7 mg/dL (8.7-10.4)
[2024-01-11 10:45] LABS: CREATININE 3.9 mg/dL (0.6-1.0)
[2024-01-11 12:07] LABS: PLATELET 311 x1000/uL (130-400)
[2024-01-11] MEDS: HYDRALAZINE 20MG/ML VIAL IV NR (12:38)
[2024-01-11 18:03] LABS: HEPATITIS B SURFACE ANTIGEN NEGATIVE (Negative)
[2024-01-11] MEDS: HYDRALAZINE 20MG/ML VIAL IV PRN (18:06)
[2024-01-11 18:24] LABS: HEPATITIS A AB IGM NEGATIVE (Negative); HEPATITIS B CORE AB IGM NEGATIVE (Negative)
[2024-01-11 18:25] LABS: HEPATITIS C AB NON REACTIVE (Neg) (Negative)
[2024-01-11] MEDS: CLONIDINE 0.1MG TABLET PO PRN (18:55)
[2024-01-12] VITALS (9 sets, daily range): BP systolic 155–170; BP diastolic 64–76; PULSE 61–77; RESP 11–19; TEMP 36.3918–36.89184; O2SAT 98–100
[2024-01-12] MEDS: IPRATROPIUM/ALBUTEROL 0.5-3(2.5)MG/3ML NEB NEB PRN (08:53)
[2024-01-12] MEDS: HYDRALAZINE HCL 50MG TABLET PO SCH (13:52)
== END 2024-01-12 23:05 | disposition home health service (06) | DRG 73 ==
LOC: ER 08:01 → 5WST 10:37 → EDBEDREQ 10:41 → EDBEDREQTM 10:41 → 3WST 18:06
PROVIDERS: ADMIT Internal Medicine; ATTEND Internal Medicine
PROC: 5A1D70Z Performance of Urinary Filtration, Intermittent, Less than 6 Hours Per Day (ICD-10-PCS; principal; 2024-01-11)
DX: G90.9 Disorder of the autonomic nervous system, unspecified (principal); E43 Unspecified severe protein-calorie malnutrition; N18.6 End stage renal disease; I12.0 Hypertensive chronic kidney disease with stage 5 chronic kidney disease or end stage renal disease; Z68.1 Body mass index [BMI] 19.9 or less, adult; K92.2 Gastrointestinal hemorrhage, unspecified; E11.22 Type 2 diabetes mellitus with diabetic chronic kidney disease; F03.90 Unspecified dementia, unspecified severity, without behavioral disturbance, psychotic disturbance, mood disturbance, and anxiety; I16.0 Hypertensive urgency; D63.1 Anemia in chronic kidney disease; E78.00 Pure hypercholesterolemia, unspecified; J44.89 Other specified chronic obstructive pulmonary disease; Z82.49 Family history of ischemic heart disease and other diseases of the circulatory system; Z87.891 Personal history of nicotine dependence; Z88.2 Allergy status to sulfonamides; Z99.2 Dependence on renal dialysis
CPT/HCPCS: 36415; 80048; 83880; 84484; 85025; 86705; 86709; 87340; 87493; 90935; 93005; 94640; 99285; C1893; J0360; J3490; J7512; J7626